=== PATIENT | female | born 1960 | race Caucasian/White ===

== ENCOUNTER 2017-01-17 01:53 | Inpatient (IN) | payer OTHER ==
[~2017-01-17] VITALS: Ht 160 cm; Wt 51.0 kg
[~2017-01-17 01:53] MED LIST: ADVIL200 M2 PO; ALPRAZOLAM1 M2 PO; CARAFATE1 G1 PO; CELEBREX200 MG PO; HYDROCODONE/ACE1 TA1 PO; LEVOTHYROXINE0.05 M1 PO; LEVOTHYROXINE50 MCG PO; METHOTREXATE2.5 M2 PO; MOBIC15 M1 PO; MULTI-DAY VITA1 EACH PO; PERCOCET 325 MG1 TA2 PO; PERCOCET 325 MG1 TAB PO; PERCOCET 5-3251 EACH PO; PREDNISONE20 MG PO; PROTONIX40 M3 PO; SKELAXIN800 MG PO; SOMA250 M1 PO; TRAMADOL50 MG PO; TRIAMCINOL0.1 %/453 TOP
--- NOTE | 2017-01-17 02:00 | ED AMS/SEIZURE/WEAK/DIZZY ---
See Addendum History of Present Illness General Chief Complaint: ETOH/Drug Related Complaint Stated Complaint: PER DAUGHTER "DRANK & TOOK TOO MANY OF HER PILLS" Source: patient, family Exam Limitations: no limitations Vital Signs & Intake/Output Vital Signs & Intake/Output Vital Signs Date Time Temp Pulse Resp B/P Pulse O2 O2 Flow FiO2 Ox Delivery Rate 01/17 0214 97.8 94 18 117/63 96 Allergies Coded Allergies: venom-honey bee (bee venom (honey bee)) (Severe, ANAPHYLAXIS 03/27/16) Reconcile Medications Alprazolam 1 MG TABLET 1 TAB PO TIDPRN PRN ANXIETY (Reported) Carisoprodol (SOMA) 250 MG TABLET 1 TAB PO BID PRN muscle spasms Ibuprofen (Advil) 200 MG TABLET 4-5 TAB PO PRN PAIN (Reported) Levothyroxine Sodium 50 MCG TABLET 1 TAB PO DAILY THYROID (Reported) Meloxicam (Mobic) 15 MG TABLET 1 TAB PO DAILY INFLAMMATION Metaxalone 800 MG TAB 1 TAB PO BID PRN MUSLE RELAXATION METHOTREXATE SODIUM (Methotrexate) 2.5 MG TABLET 1 TAB PO QWEEK CA (Reported) Multivitamin (Multi-Day Vitamins) 1 EACH TABLET 1 TAB PO DAILY SUPPLEMENT ( Reported) Oxycodone HCl/Acetaminophen (Percocet 5-325 MG Tablet) 1 EACH TABLET 1 TAB PO TID PRN PAIN Oxycodone HCl/Acetaminophen (Percocet 5-325 MG Tablet) 1 EACH TABLET 1 TAB PO BID PRN PAIN OXYCODONE HCL/ACETAMINOPHEN (Percocet 5-325 MG Tablet) 325 MG/5 MG TAB 1-2 TAB PO Q4-6 PRN PRN PAIN Pantoprazole Sodium (Protonix) 40 MG TABLET.DR 1 TAB PO DAILY GERD Triage Nurses Notes Reviewed? yes Onset: Abrupt Duration: hour(s): Timing: recent history Injury Environment: home Severity: moderate Modifying Factors: Improves With: rest. Associated Symptoms: "I've been under a lot of stress." HPI: 56-year-old woman presents after having taken several pills. The patient states that, "I've been under a lot of stress. I have anxiety. I couldn't sleep. And so I took some extra Percocet, some Xanax, and I drank tonight." Per the nurse, she reported being suicidal. Her family also states that she is suicidal. Upon my questioning, she denies suicidality. She denies homicidality or hallucinations. She is otherwise well. Past History Travel History Traveled to [place] past 21 day No Medical History Any Pertinent Medical History? see below for history Neurological: NONE Cardiovascular: NONE Respiratory: NONE Gastrointestinal: NONE Hepatic: NONE Renal: NONE Musculoskeletal: osteoarthritis, spinal stenosis (CERVICAL), RA Psychiatric: NONE Endocrine: hypothyroidism Surgical History Surgical History: spinal fusion Psychosocial History Who do you live with Daughter Services at Home None What is your primary language Egyptian Family History Hx Contributory? No Review of Systems Review of Systems Constitutional: Reports: no symptoms. EENTM: Reports: no symptoms. Respiratory: Reports: no symptoms. Cardiovascular: Reports: no symptoms. GI: Reports: no symptoms. Genitourinary: Reports: no symptoms. Musculoskeletal: Reports: no symptoms. Skin: Reports: no symptoms. Neurological/Psychological: Reports: no symptoms. Hematologic/Endocrine: Reports: no symptoms. Immunologic/Allergic: Reports: no symptoms. All Other Systems: Reviewed and Negative Physical Exam Physical Exam General Appearance: well developed/nourished, anxious, mild distress Head: atraumatic, normal appearance Eyes: Bilateral: normal appearance. Ears, Nose, Throat: normal pharynx, normal ENT inspection Neck: normal inspection, supple, full range of motion Respiratory: normal breath sounds, chest non-tender, no respiratory distress, quiet respiration, lungs clear Gastrointestinal: normal bowel sounds, soft, non-tender, no organomegaly Back: normal inspection, normal range of motion Extremities: normal range of motion Neurologic/Psych: no motor/sensory deficits, awake, alert, oriented x 3, depressed affect Reflexes: 1+: bicep (R), bicep (L). Skin: intact, normal color, warm/dry Core Measures ACS in differential dx? No CVA/TIA Diagnosis: No Severe Sepsis Present: No Septic Shock Present: No Progress Differential Diagnosis: alcohol intoxication, dehydration, drug intoxication Plan of Care: Orders Procedure Date/time Status Continuous Observation Monitor 01/17 159 Active URINE DRUG SCREEN FOR ER ONLY 01/17 159 Active ACETOMINOPHEN 01/17 159 Complete TROPONIN LEVEL 01/17 159 Complete SALICYLATE 01/17 159 Complete ETHANOL 01/17 159 Complete COMPREHENSIVE METABOLIC PANEL 01/17 159 Complete CBC WITHOUT DIFFERENTIAL 01/17 159 Complete EKG 01/17 159 Active ED CRISIS PSYCH CONSULT 01/17 159 Active Laboratory Tests 01/17/17 0242: Anion Gap 9, Estimated GFR > 60, BUN/Creatinine Ratio 15.7, Glucose 80, Calcium 8.8, Total Bilirubin 0.4, AST 38 H, ALT 29, Alkaline Phosphatase 88, Troponin I < 0.01, Total Protein 6.5, Albumin 3.8, Globulin 2.7, Albumin/Globulin Ratio 1.4 , CBC w Diff NO MAN DIFF REQ, RBC 3.91 L, MCV 95.5, MCH 31.4 H, RDW 15.0 H, MPV 8.7, Gran % 62.4, Lymphocytes % 25.2, Monocytes % 9.1, Eosinophils % 3.0, Basophils % 0.3, Absolute Granulocytes 3.6, Absolute Lymphocytes 1.4, Absolute Monocytes 0.5, Absolute Eosinophils 0.2, Absolute Basophils 0, PUBS MCHC 32.9 L , Salicylates < 1.0, Acetaminophen < 10.0 L, Serum Alcohol < 10.0 Initial ED EKG: normal axis, normal intervals, normal p-waves, normal QRS complex, normal sinus rhythm Hand-Off Endorsed To: AKBAR PAULSON,YIN Lopez Endorsed Time: 0700 Pending: consult, labs Departure Departure Disposition: STILL A PATIENT Condition: Stable Clinical Impression Primary Impression: Depression Referrals: NOELLE MCDONOUGH MD (PCP/Family) Departure Forms: Customer Survey General Discharge Information Comments 01/17/17, 3:17am.... when patient was getting changed into gown, pt found to have several pills hidden in her sock... These included, using a pill identifier, to be xanax 2mg tablets, soma 350mg, and seroquel 200mg tablets. pt to be held for crises eval in AM.
[2017-01-17 03:16] LABS: ABSOLUTE BASOPHIL COUNT 0 /CUMM (0.0-0.2); ABSOLUTE EOSINOPHIL COUNT 0.2 /CUMM (0.0-0.7); ABSOLUTE GRANULOCYTE CT 3.6 /CUMM (1.4-6.5); ABSOLUTE LYMPH COUNT 1.4 /CUMM (1.2-3.4); ABSOLUTE MONOCYTE COUNT 0.5 /CUMM (0.10-0.60); BASOPHIL % 0.3 % (0.0-2.0); GRANULOCYTE % 62.4 % (42.2-75.2); HEMATOCRIT 37.3 % (37-47); MEAN CORPUSCULAR HGB 31.4 PG (27.0-31.0); MEAN CORPUSCULAR HGB CONC 32.9 G/DL (33.0-37.0); MEAN CORPUSCULAR VOLUME 95.5 FL (81.0-99.0); MEAN PLATELET VOLUME 8.7 FL (7.4-10.4); PLATELET COUNT 223 /CUMM (130-400); RED BLOOD CELL CT 3.91 /CUMM (4.20-5.40); WHITE BLOOD CELL COUNT 5.7 /CUMM (4.8-10.8)
--- NOTE | 2017-01-17 14:09 | ED PSY CRISIS COLLATERAL NOTE ---
Collateral Note Collateral Note Family/Inform/Zeina Contacts: Crisis spoke to pt's 24yo daughter Kady Jackman who brought pt to ED last night. Kady expresses great concern for he Mom and the severity of her depression. She explained that he Mom took too much medication and initially stated it was a suicide attempt, but then retracted and stated that it was to help her sleep as she had not been able to sleep due to feeling stressed and overwhelmed. Kady is unsure if this was a suicide attempt, but says she is very worried if her mother is not admitted for inpt psych that she will kill herself. She reports that pt has very depressed and isolative and that this is not her 1st overdose. She reports pt has overdoes before, but is not sure if she has prior suicide attempts. She reports that pt has had 1 prior inpt psych admit at [place] 7 years ago for Depression. Kady is not aware of any current out pt tx. She thinks she that pt may have had previous out pt tx for anxiety. Kady would like to be notified of the outcome to the crisis eval.
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
[2017-01-17 20:09] VITALS: BP 127/87
[2017-01-17 23:40] VITALS: BP 119/81
[2017-01-18] VITALS (15 sets, daily range): BP systolic 102–146; BP diastolic 68–99
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
--- NOTE | 2017-01-18 15:16 | History & Physical ---
General Information and HPI History of Present Illness: This middle-aged female was brought to the hospital by the family for a checkup when she was not acting right and she admitted that she had taken too much off of medication. She claimed that she was not trying to kill herself but just trying to relieve her pain. She claims that her primary physician used to give her some pain medication but due to state regulation changes does not give her any more pain medication and she is only taking soma as well as Xanax and took a few pills of each. She claims that there were too many things going on in her life and he was too much stress building up. She goes to the outpatient psychiatry and the is on Seroquel and Xanax from psychiatry. She claims she has rheumatoid arthritis as well as hypothyroidism last couple of years and he takes levothyroxine 50 once a day and methotrexate 5 tablets once a week of 2.5 mg each. Should she admits to smoking about half a pack of cigarettes a day for last 40 years and claims she only rarely drinks alcohol about once a week and then only 1 or 2 drinks. 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 Allergies/Medications Allergies: Coded Allergies: venom-honey bee (bee venom (honey bee)) (Severe, ANAPHYLAXIS 03/27/16) Home Med list Alprazolam 1 MG TABLET 1 TAB PO TIDPRN PRN ANXIETY (Reported) Carisoprodol (SOMA) 250 MG TABLET 1 TAB PO BID PRN muscle spasms Ibuprofen (Advil) 200 MG TABLET 4-5 TAB PO PRN PAIN (Reported) Levothyroxine Sodium 50 MCG TABLET 1 TAB PO DAILY THYROID (Reported) Meloxicam (Mobic) 15 MG TABLET 1 TAB PO DAILY INFLAMMATION Metaxalone 800 MG TAB 1 TAB PO BID PRN MUSLE RELAXATION METHOTREXATE SODIUM (Methotrexate) 2.5 MG TABLET 1 TAB PO QWEEK CA (Reported) Multivitamin (Multi-Day Vitamins) 1 EACH TABLET 1 TAB PO DAILY SUPPLEMENT ( Reported) Oxycodone HCl/Acetaminophen (Percocet 5-325 MG Tablet) 1 EACH TABLET 1 TAB PO TID PRN PAIN Oxycodone HCl/Acetaminophen (Percocet 5-325 MG Tablet) 1 EACH TABLET 1 TAB PO BID PRN PAIN OXYCODONE HCL/ACETAMINOPHEN (Percocet 5-325 MG Tablet) 325 MG/5 MG TAB 1-2 TAB PO Q4-6 PRN PRN PAIN Pantoprazole Sodium (Protonix) 40 MG TABLET. 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 EENTM: Denies: no symptoms. Cardiovascular: Denies: no symptoms. Respiratory: Denies: no symptoms. GI: Denies: no symptoms. Genitourinary: Denies: no symptoms. Musculoskeletal: Reports: see HPI, back pain, joint pain, muscle pain. Skin: Denies: no symptoms. Neurological/Psychological: Reports: anxiety, depressed, emotional problems. Hematologic/Endocrine: Denies: no symptoms. Immunologic/Allergic: Denies: no symptoms. All Other Systems: Reviewed and Negative Exam & Diagnostic Data Last 24 Hrs of Vital Signs/I&O Vital Signs Date Time Temp Pulse Resp B/P Pulse O2 O2 Flow FiO2 Ox Delivery Rate 01/18 1417 92 130/77 01/18 1416 92 130/77 01/18 1236 94 138/81 01/18 1231 94 138/81 01/18 1231 94 138/81 01/18 1015 98.6 108 18 131/95 01/18 0719 96.6 90 146/93 01/18 0717 96.6 90 146/93 01/18 0529 74 107/68 01/18 0236 83 102/71 01/17 2340 120 119/81 01/17 2009 97.0 86 127/87 01/17 2009 97.0 86 127/87 01/17 1916 98.2 80 16 98/52 01/17 1540 98.4 76 16 112/70 Intake & Output 01/18 1600 01/18 0800 01/18 0000 Intake Total Output Total Balance Patient 112 lb Weight Physical Exam General Appearance Alert, Oriented X3, Cooperative, No Acute Distress Skin No Rashes, No Breakdown, No Significant Lesion HEENT Atraumatic, PERRLA, EOMI, Mucous Membr. moist/pink Neck Supple, No JVD, No thryomegaly, +2 Carotid Pulse wo Bruit, scar of previous surgery in the right anterior side of neck consistent with a history of C-spine surgery. Lymphatic Cervical nl Cardiovascular Regular Rate, Normal S1, Normal S2, No Murmurs, Gallops, Rubs Lungs Clear to Auscultation, Normal Air Movement Abdomen Normal Bowel Sounds, Soft, No Tenderness, No Hepatospenomegaly, No Masses Neurological Exam Findings: Normal Gait, Normal Speech, Strength at 5/5 X4 Ext, Normal Tone, Cranial Nerves 3-12 NL, Reflexes 2+ Cranial Nerves II through XII: Grossly within normal limits and intact Extremities No Clubbing, No Cyanosis, No Edema, No Tenderness/Swelling (and) Assessment/Plan Assessment: This middle-aged female is admitted for increased depression and drug overdose. She claims that she was not trying to kill herself just trying to relieve her pain and therefore took extra Xanax and Soma. From medical standpoint she has hypothyroidism and rheumatoid arthritis by history although there are no significant changes of rheumatoid arthritis on examination of her joints. For now we can continue her methotrexate 5 tablets once a week to be given together 2.5 mg each and we can continue her levothyroxin 50 g per day as before. Her TSH is slightly elevated but her free T4 and T3 are normal and therefore we can just repeat her TSH in about a week without changing the dose at this time. She is already on pain medication and antidepressants for psychiatry and does not need any other treatment or workup from medical standpoint. As Ranked By This Provider Problem List: 1. Chronic neck pain 2. Depression Miscellaneous Miscellaneous Documentation Attending Case Discussed With: CARA ARRIAGA MD Primary Care Physician: NOELLE MCDONOUGH MD Patient sees these Specialists none Level of Patient Care: TRACI Murray Attending Review Statement Attending Statement Attending MD Statement: examined this patient, reviewed EMR data (avail), discussed with nursing Attending Assessment/Plan: This middle-aged female is admitted for increased depression and drug overdose. She has hypothyroidism and rheumatoid arthritis by history and can be continued on the same dose of levothyroxine as well as methotrexate. We should recheck her TSH in one week otherwise there is no need for any other medical workup or treatment at this time.
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
[2017-01-19] VITALS (8 sets, daily range): BP systolic 132–137; BP diastolic 75–95
--- NOTE | 2017-01-19 12:56 | CP SOUTH PROGRESS NOTE PSYCH ---
Psych (Inpt) Progress Note Progress Note Include the following elements, when applicable: Involvement in the active treatment of the patient with behavioral observations of the patient and the patient's response to the treatment. Review of the ongoing treatment process in the context of the treatment plan. Indication of how multi-disciplinary staff members are carrying out the treatment plan. Plans for future interventions and recommendations for revision of the treatment plan. Liaison with other physicians/providers. Progress Note: Pt notes that doing well overall. Looking forward to visit from her daughters today. Denies SI or HI. Denies manic or psychotic sx. Current Medications Sig/Catarino Start time Last Medication Dose Route Stop Time Status Admin Al Hydroxide/Mg 30 ML Q4-6 PRN PRN 01/17 1530 AC Hydroxide PO Alprazolam 1 MG 0800,0 01/18 2200 AC 01/19 PO 01/25 2159 0906 Carisoprodol 350 MG TID 01/17 1600 AC 01/19 PO 0906 Folic Acid 1 MG DAILY 01/17 1518 DC 01/19 PO 01/19 1001 1051 Levothyroxine Sodium 0.05 MG DAILY AC 01/18 0700 AC 01/19 PO 0620 Lorazepam 0.5 MG ONCE 01/22 0000 DC PO 01/22 0001 Lorazepam 0.5 MG Q6H 01/21 0000 DC PO 01/21 1801 Lorazepam 0.5 MG ONCE ONE 01/20 1800 DC PO 01/20 1801 Lorazepam 1 MG Q6H 01/20 0000 DC PO 01/20 1201 Lorazepam 1.5 MG Q12H 01/19 0600 DC PO 01/19 1801 Lorazepam 1 MG Q12H 01/19 0000 CAN PO 01/19 1201 Lorazepam 1.5 MG Q6 01/18 0600 DC 01/18 PO 01/18 1801 1234 Lorazepam 2 MG Q2P PRN 01/17 1530 AC 01/18 PO 2320 Lorazepam 1 MG Q2P PRN 01/17 1530 AC 01/18 PO 1004 Multivitamins 1 TAB DAILY 01/17 1518 AC 01/19 PO 0907 Nicotine 2 MG Q2 HRS NEEDED PRN 01/18 1500 AC PO Oxycodone/ 1 TAB Q12P PRN 01/17 1530 DC Acetaminophen PO Quetiapine Fumarate 50 MG 0800,1300 01/19 0800 AC 01/19 PO 0907 Quetiapine Fumarate 200 MG AT BEDTIME 01/17 2200 AC 01/18 PO 2127 Quetiapine Fumarate 25 MG Q8P PRN 01/17 1530 DC PO Sucralfate 1,000 MG 1/2H B/BREAKF/DINNER 01/17 1630 AC 01/19 PO 0620 Thiamine HCl 100 MG DAILY 01/17 1518 DC 01/19 PO 01/19 1001 1051 Laboratory Tests 01/19 01/19 01/18 01/18 0619 0619 0600 0600 Chemistry Hemoglobin A1c Pending Cancelled Triglycerides (<150 mg/dL) 84 Cancelled Cholesterol (<200 MG/DL) 229 H Cancelled LDL Cholesterol, Calc (65 - 129 mg/dL) 137 H Cancelled HDL Cholesterol (40 - 60 mg/dL) 76 H Cancelled Cholesterol/HDL Ratio (0.00 - 4.23 %) 3 Cancelled 01/17 01/17 0758 0242 Chemistry Sodium (137 - 145 mmol/L) 140 Potassium (3.5 - 5.1 mmol/L) 4.0 Chloride (98 - 107 mmol/L) 103 Carbon Dioxide (22 - 30 mmol/L) 28 Anion Gap (5 - 16) 9 BUN (7 - 17 mg/dL) 11 Creatinine (0.5 - 1.0 mg/dL) 0.7 Estimated GFR (>60 ml/min) > 60 BUN/Creatinine Ratio (7 - 25 %) 15.7 Glucose (65 - 99 mg/dL) 80 Calcium (8.4 - 10.2 mg/dL) 8.8 Total Bilirubin (0.2 - 1.3 mg/dL) 0.4 AST (14 - 36 U/L) 38 H ALT (9 - 52 U/L) 29 Alkaline Phosphatase (<127 U/L) 88 Troponin I (< 0.11 ng/ml) < 0.01 Total Protein (6.3 - 8.2 g/dL) 6.5 Albumin (3.5 - 5.0 g/dL) 3.8 Globulin (1.9 - 4.2 gm/dL) 2.7 Albumin/Globulin Ratio (1.1 - 2.2 %) 1.4 Free T4 (0.64 - 1.79 ng/dL) 1.41 Total T3 (0.97 - 1.69 ng/mL) 1.31 TSH &T3 &Free T4 Intrp (0.270 - 4.20 uIU/mL) 6.500 H Hematology CBC w Diff NO MAN DIFF REQ WBC (4.8 - 10.8 /CUMM) 5.7 RBC (4.20 - 5.40 /CUMM) 3.91 L Hgb (12.0 - 16.0 G/DL) 12.3 Hct (37 - 47 %) 37.3 MCV (81.0 - 99.0 FL) 95.5 MCH (27.0 - 31.0 PG) 31.4 H RDW (11.5 - 14.5 %) 15.0 H Plt Count (130 - 400 /CUMM) 223 MPV (7.4 - 10.4 FL) 8.7 Gran % (42.2 - 75.2 %) 62.4 Lymphocytes % (20.5 - 51.1 %) 25.2 Monocytes % (1.7 - 9.3 %) 9.1 Eosinophils % (0 - 5 %) 3.0 Basophils % (0.0 - 2.0 %) 0.3 Absolute Granulocytes (1.4 - 6.5 /CUMM) 3.6 Absolute Lymphocytes (1.2 - 3.4 /CUMM) 1.4 Absolute Monocytes (0.10 - 0.60 /CUMM) 0.5 Absolute Eosinophils (0.0 - 0.7 /CUMM) 0.2 Absolute Basophils (0.0 - 0.2 /CUMM) 0 PUBS MCHC (33.0 - 37.0 G/DL) 32.9 L Toxicology Salicylates (0 - 20.0 mg/dL) < 1.0 Urine Opiates Screen (>2000 NG/ML) 880.00 Methadone Screen (>300 NG/ML) 90 Acetaminophen (10.0 - 30.0 ug/mL) < 10.0 L Barbiturate Screen (>200 NG/ML) < 60 Ur Phencyclidine Scrn (>25 NG/ML) < 6.00 Amphetamines Screen (>1000 NG/ML) < 100 U Benzodiazepines Scrn (>200 NG/ML) > 800 H Urine Cocaine Screen (>300 NG/ML) < 50 Urine Cannabis Screen (>50 NG/ML) 40.80 Serum Alcohol (<10 MG/DL) < 10.0 Vital Signs Date Time Temp Pulse Resp B/P Pulse O2 O2 Flow FiO2 Ox Delivery Rate 01/19 1224 96 135/75 01/19 1219 96 135/75 01/19 1028 97.3 88 136/84 01/19 0810 97.3 88 136/84 01/18 2319 117 18 137/80 01/18 2222 92 140/99 01/18 1954 92 142/95 01/18 1938 98.4 92 142/95 01/18 1614 96 141/96 01/18 1552 96 141/96 01/18 1417 92 130/77 01/18 1416 92 130 MSE Appears much older than stated age. Cooperative behavior, good, appropriate eye contact. Nl speech rate and prosody. No psychomotor retardation or agitation. Mood fine Affect euthymic, iconstricted, appropriate, non-liable. Linear and goal directed thought process. Denies SI or HI. Does not appear to be responding to internal stimuli. Denies AVHs, paranoia, or delusions. I/J: limited A/P: Pt with unspecified mood disorder and S-HUD, BDZ, now with improved mood. - Continue current medication regimen. - Encourage intergration into the milieu
[2017-01-20] VITALS (9 sets, daily range): BP systolic 117–142; BP diastolic 74–85
--- NOTE | 2017-01-20 12:36 | CP SOUTH PROGRESS NOTE PSYCH ---
Psych (Inpt) Progress Note Progress Note Include the following elements, when applicable: Involvement in the active treatment of the patient with behavioral observations of the patient and the patient's response to the treatment. Review of the ongoing treatment process in the context of the treatment plan. Indication of how multi-disciplinary staff members are carrying out the treatment plan. Plans for future interventions and recommendations for revision of the treatment plan. Liaison with other physicians/providers. Progress Note: Pt very upset as younger daughter visited and gave her "an ultimatum" which consist of going to inpatient rehab for a month. In speaking with the pt, it seems that the younger daughters motivation for this may be that patient's house , which the younger daughter currently lives in, is about to go into foreclosure and daughter feels that if pt is inpatient that will not occur. Patient does not want to do the rehab, "it won't change anything." Pt notes that backpain markedly worse today and requested ativan. This reqest was denied. Amenable to lidocaine patch at night as feels back pain worse then. Denies SI or HI. Current Medications Sig/Catarino Start time Last Medication Dose Route Stop Time Status Admin Al Hydroxide/Mg 30 ML Q4-6 PRN PRN 01/17 1530 AC Hydroxide PO Alprazolam 1 MG 0800,2200 01/18 2200 AC 01/20 PO 01/25 2159 0818 Carisoprodol 350 MG TID 01/17 1600 AC 01/20 PO 0818 Levothyroxine Sodium 0.05 MG DAILY AC 01/18 0700 AC 01/20 PO 0816 Lidocaine 1 PAT AT BEDTIME 01/20 2200 AC EXT Lorazepam 0.5 MG ONCE 01/22 0000 DC PO 01/22 0001 Lorazepam 0.5 MG Q6H 01/21 0000 DC PO 01/21 1801 Lorazepam 0.5 MG ONCE ONE 01/20 1800 DC PO 01/20 1801 Lorazepam 1 MG Q6H 01/20 0000 DC PO 01/20 1201 Lorazepam 2 MG Q2P PRN 01/17 1530 AC 01/18 PO 2320 Lorazepam 1 MG Q2P PRN 01/17 1530 AC 01/18 PO 1004 Multivitamins 1 TAB DAILY 01/17 1518 AC 01/20 PO 0816 Nicotine 2 MG Q2 HRS NEEDED PRN 02/24 1500 AC PO Quetiapine Fumarate 50 MG 0800,1300 01/19 0800 AC 01/20 PO 0816 Quetiapine Fumarate 200 MG AT BEDTIME 01/17 2200 AC 01/19 PO 2156 Sucralfate 1,000 MG 1/2H B/BREAKF/DINNER 01/17 1630 AC 01/20 PO 0816 Laboratory Tests 01/19 01/19 01/18 01/18 0619 0619 0600 0600 Chemistry Hemoglobin A1c (<5.7) 5.1 Cancelled Triglycerides (<150 mg/dL) 84 Cancelled Cholesterol (<200 MG/DL) 229 H Cancelled LDL Cholesterol, Calc (65 - 129 mg/dL) 137 H Cancelled HDL Cholesterol (40 - 60 mg/dL) 76 H Cancelled Cholesterol/HDL Ratio (0.00 - 4.23 %) 3 Cancelled Vital Signs Date Time Temp Pulse Resp B/P Pulse O2 O2 Flow FiO2 Ox Delivery Rate 01/20 1222 91 122/81 01/20 1215 91 12281 01/20 0752 97.5 96 135/85 01/20 0744 97.5 96 135/85 01/20 0024 86 126/74 01/19 195 98.6 91 137/95 01/19 1943 98.6 91 137/95 01/19 1631 96 132/90 01/19 1619 96 132/90 MSE Appears as stated age. Cooperative behavior though defensive and upset when told would not give her ativan, good, appropriate eye contact. Nl speech rate and prosody. No psychomotor retardation or agitation. Mood terrible.... Affect extremely irritable, depressed, constricted, appropriate, non-liable. Linear and goal directed thought process. Denies SI or HI. Does not appear to be responding to internal stimuli. Denies AVHs, paranoia, or delusions. I/J: limited A/P: Pt with MDD and OUD as well as S-HUD with marked irritability around discharge planning and continued chronic pain. - Added lidocaine patch for QHS as pain worse at this time - Pt taking soma as well - Pt and two daughter need to have a family meeting, preferably facilitated by SW, to aid in discharge planning and realistic expectations.
[2017-01-21 08:00] VITALS: BP 96/67
[2017-01-21] MEDS ORDERED: SOMA350 M1 PO ×2 (12:08→12:39)
[2017-01-21] MEDS ORDERED: NICORELIEF2 MG PO (12:12)
[2017-01-21 12:16] VITALS: BP 111/71
--- NOTE | 2017-01-21 12:22 | CP SOUTH PROGRESS NOTE PSYCH ---
Psych (Inpt) Progress Note Progress Note Progress Note: I discussed this patient's progress to date, current mental status, treatment process in the context of the treatment plan, and discharge planning with staff/ team in the daily morning inpatient team meeting. I also met with the patient myself in individual session. A total of 30 minutes was spent with the patient with more than 50% spent in counseling and/or coordination of care. SUBJECTIVE: "I feel better. I feel clear headed for the first time in a long time." OBJECTIVE: Current Medications Sig/Catarino Start time Last Medication Dose Route Stop Time Status Admin Al Hydroxide/Mg 30 ML Q4-6 PRN PRN 01/17 1530 AC Hydroxide PO Alprazolam 1 MG 0800,2200 01/18 2200 AC 01/21 PO 01/25 2159 0818 Carisoprodol 350 MG TID 01/17 1600 AC 01/21 PO 0818 Diphenhydramine HCl 25 MG ONCE ONE 01/20 2345 DC 01/20 PO 01/20 2346 2357 Ibuprofen 400 MG Q4P PRN 01/21 0845 AC 01/21 PO 0948 Ibuprofen 400 MG ONCE ONE 01/20 2345 DC 01/20 PO 01/20 2346 2357 Levothyroxine Sodium 0.05 MG DAILY AC 01/18 0700 AC 01/21 PO 0703 Lidocaine 1 PAT AT BEDTIME 01/20 2200 AC 01/20 EXT 2202 Lorazepam 0.5 MG ONCE 01/22 0000 DC PO 01/22 0001 Lorazepam 0.5 MG Q6H 01/21 0000 DC PO 01/21 1801 Lorazepam 0.5 MG ONCE ONE 01/20 1800 DC PO 01/20 1801 Lorazepam 2 MG Q2P PRN 01/17 1530 AC 01/18 PO 2320 Lorazepam 1 MG Q2P PRN 01/17 1530 AC 01/18 PO 1004 Multivitamins 1 TAB DAILY 01/17 1518 AC 01/21 PO 0819 Nicotine 2 MG Q2 HRS NEEDED PRN 01/18 1500 AC PO Quetiapine Fumarate 50 MG 0800,1300 01/19 0800 AC 01/21 PO 0819 Quetiapine Fumarate 200 MG AT BEDTIME 01/17 2200 AC 01/20 PO 2202 Sucralfate 1,000 MG 1/2H B/BREAKF/DINNER 01/17 1630 AC 01/21 PO 0703 Vital Signs Date Time Temp Pulse Resp B/P Pulse O2 O2 Flow FiO2 Ox Delivery Rate 01/21 1216 85 111/71 01/21 0800 97.5 98 9601/21 0800 97.5 98 9601/20 1955 97.5 94 142/78 01/20 1939 97.5 94 142/78 01/20 1630 97 117/83 01/20 1622 97 117 ASSESSMENT: Patient reports that she is feeling well. Tolerating medications well, without complaint. States that over the weekend, "I was laughing. It was the first time I was laughing in a long time." She states she feels safe, and ready for discharge. Patient denies regular alcohol use. States she has an alcoholic drink infrequently, does not drink to excess. Family meeting this afternoon with her daughter. Depression:0/10; Anxiety: 6/10 (with 10 the worst.) Denies suicidal ideation, homicidal ideation, auditory hallucinations, visual hallucinations, paranoid ideation. Patient states and also believes that she will not kill herself. Speech is well articulated, goal-directed, average in rate, volume and tone. Calm, cooperative and pleasant. Alert and oriented 3. Logical. The patient understands the risks/benefits/side effects of the medication and is agreeable to continue taking them. PLAN: Family meeting this afternoon. Anticipate discharge after the family meeting. Patient will follow up at [facility]. Continue with current management as patient is improving. Continue to provide support and encouragement.
--- NOTE | 2017-01-21 12:25 | DISCHARGE SUMMARY REPORT-PSYCH ---
Visit Information Visit Dates/Diagnosis' Admission Date: 01/17/17 Discharge Date: 01/21/17 Reason for Admission: The patient presented to the emergency department on the urging of her daughter Kady, after a reported overdose on "three, 2 mg tablets of Xanax." Rule out possible suicidal attempt/gesture. Psy Discharge Primary Diag: PTSD Psy Discharge Secondary Diag: Anxiety; rule out bipolar spectrum d/o; rule out personality disorder; benzodiazapine dependence. Hospital Course Significant Lab Findings: Lab ALT 29 U/L 01/17/17 0242 AST 38 U/L H 01/17/17 0242 Free T4 1.41 ng/dL 01/17/17 0242 TSH &T3 &Free T4 Intrp 6.500 uIU/mL H 01/17/17 0242 Total T3 1.31 ng/mL 01/17/17 0242 U Benzodiazepines Scrn > 800 NG/ML H 01/17/17 0758 Course Complications: None Consultations: Patient was seen for admission history and physical by Dr. Pabon. Please refer to his note for additional information. Allergies: Coded Allergies: venom-honey bee (bee venom (honey bee)) (Severe, ANAPHYLAXIS 03/27/16) Hospital Course/TX Response: Patient was monitored on the unit for safety, depression, mood stability, and suicidal ideation. She participated in multimodal treatments on the unit. She was medicated with an increased dose of Seroquel for anxiety, and clear thoughts. Xanax dose was decreased to 1mg, twice daily. Today, the day of discharge, she reports that she is feeling well. Tolerating medications well, without complaint. States that over the weekend, "I was laughing. It was the first time I was laughing in a long time." She states she feels safe, and ready for discharge. Patient denies regular alcohol use. States she has an alcoholic drink infrequently, does not drink to excess. A Family meeting was held this afternoon with her daughter, prior to discharge. Her daughter verbalized understanding of patient's discharge plan, was supportive, and endorsed that her mother was not a problem drinker. The daughter, Catrina, believes that her mother is safe at home, and not a danger to herself or anyone else. Depression:0/10; Anxiety: 6/10 (with 10 the worst.) Denies suicidal ideation, homicidal ideation, auditory hallucinations, visual hallucinations, paranoid ideation. Patient states and also believes that she will not kill herself. Speech is well articulated, goal-directed, average in rate, volume and tone. Calm, cooperative and pleasant. Alert and oriented 3. Logical. The patient understands the risks/benefits/side effects of the medication and is agreeable to continue taking them. Patient reports tolerating her medications well, without complaint. States she feels safe and ready for discharge. Discharge HBIPS - Tobacco Use Treatment Offered Post DC Medications Offered: Script Given-See Med List Post DC Tobacco Treatment Plan: [facility] Tx Pgm Program Appt Date: 01/30/17 Program Appt Time: 1600 - EtOH/Drug Use D/O Treatment Offered Post DC Medications Offered: NA-No EtOH/Drug Use D/O Post DC EtOH/SubAbuse TX Plan: NA-No EtOH/Drug Use D/O Metabolic Screening - Screen if on a Neuroleptic Medication - Metabolic screening should include: - Blood Pressure, BMI, Glucose or Hgb A1c, & a - Lipid profile from within the past 365 days. Metabolic Screening () Not Applicable, patient not on a neuroleptic. OR ([x]) Patient on a neuroleptic(s) . Enter below results for Glucose or Hemoglobin A1C, and lipid panel if obtained during the last 365 days. BMI: Blood Pressure: 111/71 Laboratory Results (If applicable): Lab Cholesterol 229 MG/DL H 01/19/17 0619 Cholesterol/HDL Ratio 3 % 01/19/17 0619 HDL Cholesterol 76 mg/dL H 01/19/17 0619 Hemoglobin A1c 5.1 01/19/17 0619 LDL Cholesterol, Calc 137 mg/dL H 01/19/17 0619 Triglycerides 84 mg/dL 01/19/17 0619 Discharge Instructions General Discharge Information Discharge Medications: Discharge Medications- (Dose, route, freq, indication): START taking these NEW Home Medications: Alprazolam (Xanax) 1 Dose: ORAL, TWICE DAILY for Qty: 28 Printed MG TABLET 1 Milligram ANXIETY Refills: 0 Last Taken:01/21/17 Time:8am Nicotine Dose: ORAL, EVERY 2 HOURS Qty: 30 (Nicorelief) 2 MG 2 Milligram NEEDED as needed for Refills: 0 GUM smoking cessation Quetiapine Fumarate Dose: ORAL, AT BEDTIME for Qty: 14 (Quetiapine 200 Milligram CLEAR THOUGHTS Refills: 0 Fumarate) 100 MG Last Taken:01/20/17 TABLET Time:10pm Quetiapine Fumarate Dose: ORAL, 0800,1300 for Qty: 28 (Seroquel) 50 MG 50 Milligram CLEAR THOUGHTS Refills: 0 TABLET Last Taken:01/21/17 Time:8am Carisoprodol (SOMA) Dose: ORAL, THREE TIMES DAILY Qty: 14 350 MG TABLET 350 Milligram for PAIN Refills: 0 Last Taken:01/21/17 Time:8am CONTINUE taking these Home Medications: METHOTREXATE SODIUM Dose: ORAL, QWEEK for CA (Methotrexate) 2.5 MG 1 Tablet TK 5 TS PO ONCE WEEKLY TABLET ON MONDAYS - SIG Obtained From Jaymie Pantoprazole Sodium Dose: ORAL, DAILY for GERD (Protonix) 40 MG 1 Tablet not given in hospital TABLET. Levothyroxine Sodium Dose: ORAL, DAILY for THYROID (Levothyroxine Sodium) 1 Tablet Last Taken:01/21/17 50 MCG TABLET Time:7am Ibuprofen (Advil) 200 MG Dose: ORAL, as needed for TABLET 4-5 Tablet PAIN PER PT Multivitamin (Multi-Day Dose: ORAL, DAILY for Vitamins) 1 EACH TABLET 1 Tablet SUPPLEMENT Last Taken:01/21/17 Time:8am STOP taking these DISCONTINUED Home Medications: Oxycodone HCl/Acetaminophen Dose: ORAL, TWICE DAILY as needed for (Percocet 5-325 MG Tablet) 1 1 Tablet PAIN EACH TABLET Reason Stopped: Per Doctor Decision Your Preferred Pharmacy [facility] [address] [place] [id number] Multiple Neuroleptics: (x) Not Applicable OR Document below three failed attempts at monotherapy, or a plan to taper to monotherapy, or augmentation of Clozapine. () Patient's Diet: Regular Patient's Activity: No restrictions DC Disposition: Patient is returning to her home. Recommendations: Follow up at [facility]. Take medications as directed. Follow-up with visiting nurse. Referred To: [facility] OUTPT [facility] Service Date: 01/23/17 [address] [id number] Notes: Intake for mental health [facility] 9:30am [address] [phone] Provider Referral Service Date: 01/21/17 Referred To: [[facility]] [Visiting Nurse] Notes: Referred to [facility] for 2x daily med administration 7 days a week. Copies To: Intensive Outpt Psychiatry; [facility]
[2017-01-21 12:32] VITALS: BP 111/71
[2017-01-21] MEDS ORDERED: QUETIAPINE FUM100 M1 PO (12:40)
[2017-01-21] MEDS ORDERED: SEROQUEL50 M1 PO (12:40)
--- NOTE | 2017-01-21 13:19 | SOCIAL WORKER PROG NOTE PSYCH ---
Social Work Progress Note Progress Note Called Maribel's daughter Kady this morning and left a message about setting up a family meeting for today. In team meeting, it was discussed that patient should discharge today, due to not needing inpatient level of care. Met with Maribel who reports that she is doing well today. No SI. I told her I was trying to get her daughter in today for a meeting. She stated that it was difficult to get a hold of Kady during the day because she works and then goes to sleep. She said she has been in contact with her daughter Catrina. I told her that I'd like to clarify some things in regards to her daughter Kady's report about her drinking. Maribel continues to deny that she has a current substance problem. She said that her daughter was angry with her and said it in the ER. Maribel reported that her and Catrina are working on their relationship and she is open to her coming in to meet. I told Maribel that she will most likely be discharged today and that I would like to set up her aftercare at [facility]. She seemed open to the idea. Her only concern was changing her meds, she likes the meds she is on. I told her that the mental health track will allow her to stay on the meds that she is on, but they would like to talk to her prescribers. She said she would have no issue with signing releases for her doctors. She also said that her daughter Catrina offered to help her with her meds. I told her that my preference would be to refer her to a visiting nurse. She agreed for me to do the referral. Signed release for [facility]. Velasquez Corral APRN and I spoke with Johnie Holman APRN in OPS to clarify if there was a substance related issue and if she would be appropriate for the mental health track. Johnie agreed that there has been no evidence of any substance/ drinking problem and he agreed that the mental health track would be appropriate. I also spoke with Maribel Fritz's daughter. Catrina said she was willing to sheepskin pickler her Mom today. I asked if she had any concerns about drinking? She said no. She said she may have 1 drink occasionally. She will come in at 2pm and sheepskin pickler her Mom and meet with us to review her information. Daughter Catrina sat with Maribel Toscano APRN and I to review her discharge information. Catrina didn't have any concern about Mom returning home. She once again confirmed that her Mom is not a drinker. Told her [facility] would be seeing her today to do an intake for [facility]. They will provide BID medical office technician.
[2017-01-21] MEDS ORDERED: XANAX1 M1 PO (14:26)
== END 2017-01-21 14:52 | DRG 756 ==
LOC: ERH 01:53 → ERHI 17:31 → CP SOUTH 17:31 → ENPENDDIS 17:31 → EDBEDREQ 17:42 → CP SOUTH 20:05
PROVIDERS: Nurse Practitioner Psychiatric/Mental Health; Pediatrics; ADMIT Psychiatry & Neurology Psychiatry
DX: F41.9 Anxiety disorder, unspecified (principal)
CPT/HCPCS: 36415; 80307; 93005; 93010; G0480; J3101; J3490

== ENCOUNTER 2017-03-12 15:20 | Emergency (ER) | payer OTHER ==
[~2017-03-12] VITALS: Ht 157.5 cm; Wt 49.9 kg
[~2017-03-12 15:20] MED LIST changes: +NICORELIEF2 MG PO; +QUETIAPINE FUM100 M1 PO; +SEROQUEL50 M1 PO; +SOMA350 M1 PO; +XANAX1 M1 PO
[2017-03-12] MEDS ORDERED: LYRICA100 M1 PO (17:03)
--- NOTE | 2017-03-12 17:17 | ED GENERAL ADULT ---
History of Present Illness General Chief Complaint: General Adult Stated Complaint: NECK AND R SHOULDER PAIN,NOW LEGS AND ANKLES X4DAY Source: patient Exam Limitations: no limitations Vital Signs & Intake/Output Vital Signs & Intake/Output Vital Signs Date Time Temp Pulse Resp B/P Pulse O2 O2 Flow FiO2 Ox Delivery Rate 03/12 1653 99 Room Air 03/12 1543 98.5 87 16 114/80 97 Room Air Allergies Coded Allergies: venom-honey bee (bee venom (honey bee)) (Severe, ANAPHYLAXIS 03/27/16) Reconcile Medications Alprazolam (Xanax) 1 MG TABLET 1 MG PO BID ANXIETY Carisoprodol (SOMA) 350 MG TABLET 350 MG PO TID PAIN Ibuprofen (Advil) 200 MG TABLET 4-5 TAB PO PRN PAIN (Reported) Levothyroxine Sodium 50 MCG TABLET 1 TAB PO DAILY THYROID (Reported) Meloxicam (Mobic) 15 MG TABLET 1 TAB PO DAILY PRN PAIN/INFLAMMATION Methotrexate 2.5 MG TABLET 5 TAB PO QMON RA (Reported) Multivitamin (Multi-Day Vitamins) 1 EACH TABLET 1 TAB PO DAILY SUPPLEMENT ( Reported) Oxycodone HCl/Acetaminophen (Percocet 5-325 MG Tablet) 5 MG-325 MG TABLET 1 TAB PO Q6H PRN PAIN Pantoprazole Sodium (Protonix) 40 MG TABLET.DR 1 TAB PO DAILY GERD Pregabalin (Lyrica) 100 MG CAPSULE 1 CAP PO BID NEVRE PAIN (Reported) Quetiapine Fumarate 100 MG TABLET 200 MG PO AT BEDTIME CLEAR THOUGHTS Quetiapine Fumarate (Seroquel) 50 MG TABLET 50 MG PO 0800,1300 CLEAR THOUGHTS Triage Note: PT STATES SHE HAD BACK PAIN ABOUT 1 WEEK AGO AND THEN UP INTO HER HEAD AND NOW IT'S DOWN TO HER FEET TODAY. PT STATES SHE IS USE TO HAVEING BACK AND NECK PAIN BUT THIS DOESN'T SEEM LIKE THE NORM FOR HER. Triage Nurses Notes Reviewed? yes HPI: Patient is a 56-year-old female presents complaining of neck pain radiating down bilateral arms and back pain radiating down her bilateral legs. Patient awoke with pain 4 days ago in her neck and her back and over the past 4 days the pain has been gradually spreading. Patient has a history of chronic neck and back pain and has had surgery on both, most recently in 2001. Patient reports that she had an MRI of her lumbar spine approximately 3 weeks ago and was seeing Dr. Beltran, but was discharged from the practice due to "he said there was nothing more that he could do". Pain feels different than her previous chronic pain. Patient has been taking Advil with no improvement. Patient reports that movement of her arms and her legs causes a pulling sensation and exacerbates her pain. Pain is currently severe. Patient denies fevers, chills, rashes, recent trauma, numbness, incontinence. (MADAI SORENSEN) Past History Travel History Traveled to [place] past 21 day No Medical History Any Pertinent Medical History? see below for history Neurological: NONE EENT: ALLERGIES- SEASONAL; BEES (seasonal allergies) Cardiovascular: NONE Respiratory: NONE Gastrointestinal: ACID REFLUX Hepatic: NONE Renal: NONE Musculoskeletal: osteoarthritis, spinal stenosis (CERVICAL), RheUmatoid Arthritis Psychiatric: NONE Endocrine: hypothyroidism Blood Disorders: NONE Cancer(s): NONE REPOSSESSOR/Reproductive: 2 C SECTIONS History of MRSA: No History of VRE: No History of CDIFF: No Influenza Vaccine: 10/10/16 Surgical History Surgical History: spinal fusion Psychosocial History Who do you live with Daughter Services at Home None What is your primary language Polish Tobacco Use: Current Daily Use Daily Tobacco Use Amount/Type: => 5 Cigarettes daily ETOH Use: occasional use Illicit Drug Use: denies illicit drug use Family History Hx Contributory? No (MADAI SORENSEN) Review of Systems Review of Systems Constitutional: Denies: chills, fever. EENTM: Reports: no symptoms. Respiratory: Denies: cough, short of breath. Cardiovascular: Denies: chest pain. GI: Denies: abdominal pain. Genitourinary: Reports: no symptoms. Musculoskeletal: Reports: see HPI. Skin: Reports: no symptoms. Denies: rash. Neurological/Psychological: Reports: headache. Denies: numbness, paresthesia. Hematologic/Endocrine: Denies: bruising, bleeding. Immunologic/Allergic: Denies: splenectomy. (MADAI SORENSEN) Physical Exam Physical Exam General Appearance: well developed/nourished, alert, awake Head: atraumatic, normal appearance Eyes: Bilateral: normal appearance, PERRL, EOMI. Ears, Nose, Throat: normal pharynx, hearing grossly normal Neck: normal inspection, supple, full range of motion, no midline tenderness. Mild paraspinal tenderness starting at C7-T1 Respiratory: normal breath sounds, chest non-tender, no respiratory distress, lungs clear Cardiovascular: regular rate/rhythm Peripheral Pulses: 2+ radial (R), 2+ radial (L), 2+ dorsalis pedis (R), 2+ dorsalis pedis (L) Gastrointestinal: normal bowel sounds, soft, non-tender Back: normal inspection, normal range of motion, bilateral lumbar paraspinal tenderness Extremities: normal inspection, normal capillary refill, normal range of motion, no edema Neurologic/Psych: no motor/sensory deficits, awake, alert, oriented x 3, normal gait, normal mood/affect Reflexes: 2+: knee (R), knee (L), ankle (R), ankle (L). Skin: intact, normal color, warm/dry Lymphatic: no anterior cervical masha Core Measures ACS in differential dx? No CVA/TIA Diagnosis: No Severe Sepsis Present: No Septic Shock Present: No (MADAI SORENSEN) Progress Differential Diagnoses I considered the following diagnoses in my evaluation of the patient: Nerve impingement, radiculopathy, chronic pain, Guillain-Rome syndrome, rheumatologic disease, transverse myelitis Plan of Care: No acute neurologic abnormalities on exam. Patient had MRI imaging of her lumbar spine within the past 1 month(performed at [facility], results not available at this time). Patient does not appear to require further imaging at this time. Appears stable for discharge with conservative treatment and outpatient follow-up. Initial ED EKG: none (MADAI SORENSEN) Departure Departure Time of Disposition: 1730 Disposition: HOME OR SELF CARE Condition: Stable Clinical Impression Primary Impression: Cervical radiculopathy Secondary Impressions: Lumbar radiculopathy Referrals: NOELLE MCDONOUGH MD (PCP/Family) Additional Instructions: Follow-up with your primary care provider within one week for further evaluation. Be careful when taking the pain medication that is being prescribed to you. It can cause drowsiness, especially with your other medications. Do not take if you are getting increasingly lethargic. Return to the emergency department if numbness, weakness, fevers, rash, or worsening of symptoms. Departure Forms: Customer Survey General Discharge Information Prescriptions: Current Visit Scripts Meloxicam (Mobic) 1 TAB PO DAILY PRN PAIN/INFLAMMATION #10 TAB Oxycodone HCl/Acetaminophen (Percocet 5-325 MG Tablet) 1 TAB PO Q6H PRN PAIN #10 TAB (MADAI SORENSEN) PA/COMMAND AND CONTROL SPECIALIST Co-Sign Statement Statement: ED Attending supervision documentation- [] I saw and evaluated the patient. I have also reviewed all the pertinent lab results and diagnostic results. I agree with the findings and the plan of care as documented in the PA's/COMMAND AND CONTROL SPECIALIST's documentation. x I have reviewed the ED Record and agree with the PA's/COMMAND AND CONTROL SPECIALIST's documentation. [] Additions or exceptions (if any) to the PAs/COMMAND AND CONTROL SPECIALIST's note and plan are summarized below: [] (IRENE PAULSON,FRANCISCO) Critical Care Note Critical Care Note Critical Care Time: non-applicable (MADAI SORENSEN)
[2017-03-12] MEDS ORDERED: PERCOCET 5-3251 EACH PO (17:31)
[2017-03-12] MEDS ORDERED: MOBIC15 M1 PO (17:31)
[2017-03-12 17:36] VITALS: BP 112/74
== END 2017-03-12 17:38 ==
LOC: ERH 15:20
DX: M54.12 Radiculopathy, cervical region (principal); M54.16 Radiculopathy, lumbar region

== ENCOUNTER 2017-04-19 14:56 | Emergency (ER) | payer OTHER ==
[~2017-04-19] VITALS: Ht 157.5 cm; Wt 52.2 kg
[~2017-04-19 14:56] MED LIST changes: +LYRICA100 M1 PO
[2017-04-19 15:01] VITALS: BP 121/83
--- NOTE | 2017-04-19 16:05 | ED NECK/BACK PAIN COMPLAINT ---
History of Present Illness General Chief Complaint: Upper Extremity Problem Stated Complaint: "PER PT NECK PAIN" Source: patient Exam Limitations: no limitations Vital Signs & Intake/Output Vital Signs & Intake/Output Vital Signs Date Time Temp Pulse Resp B/P B/P Pulse O2 O2 Flow FiO2 Mean Ox Delivery Rate 04/19 1501 98.6 102 18 121/83 96 Room Air Allergies Coded Allergies: venom-honey bee (bee venom (honey bee)) (Severe, ANAPHYLAXIS 03/27/16) Reconcile Medications Alprazolam (Xanax) 1 MG TABLET 1 MG PO BID ANXIETY Carisoprodol (SOMA) 350 MG TABLET 350 MG PO TID PAIN Cyclobenzaprine HCl 10 MG TABLET 1 TAB PO QPM PRN MUSCLE RELAXOR Ibuprofen (Advil) 200 MG TABLET 4-5 TAB PO PRN PAIN (Reported) Levothyroxine Sodium 50 MCG TABLET 1 TAB PO DAILY THYROID (Reported) Meloxicam (Mobic) 15 MG TABLET 1 TAB PO DAILY PRN PAIN/INFLAMMATION Meloxicam (Mobic) 15 MG TABLET 1 TAB PO DAILY PRN pain Methotrexate 2.5 MG TABLET 5 TAB PO QMON RA (Reported) Multivitamin (Multi-Day Vitamins) 1 EACH TABLET 1 TAB PO DAILY SUPPLEMENT ( Reported) Oxycodone HCl/Acetaminophen (Percocet 5-325 MG Tablet) 5 MG-325 MG TABLET 1 TAB PO Q6H PRN PAIN Oxycodone HCl/Acetaminophen (Percocet 5-325 MG Tablet) 5 MG-325 MG TABLET 1 TAB PO BID PRN PAIN Pantoprazole Sodium (Protonix) 40 MG TABLET.DR 1 TAB PO DAILY GERD Pregabalin (Lyrica) 100 MG CAPSULE 1 CAP PO BID NEVRE PAIN (Reported) Quetiapine Fumarate 100 MG TABLET 200 MG PO AT BEDTIME CLEAR THOUGHTS Quetiapine Fumarate (Seroquel) 50 MG TABLET 50 MG PO 0800,1300 CLEAR THOUGHTS Triage Note: 57 Y/O FEMALE C/O NECK PAIN SINCE LIFTING 5 POUND BAG OF DOGFOOD TODAY. STATES HX NECK PROBLEMS AND LIFTING BAG EXACERBATED PAIN. TOOK ADVIL WITH NO RELIEF. STATES PAIN IS ON BOTH SIDES OF NECK. Triage Nurses Notes Reviewed? yes Onset: Abrupt Duration: constant Timing: single episode today Quality/Severity: severe Location: paraspinous muscles Radiation: none Loss of Consciousness: no loss of consciousness HPI: Patient is a 57-year-old female with a past medical history of chronic neck pain and cervical fusion who presents emergency and that today while lifting a 5 pound dog back she had acute onset of right-sided muscular neck pain or patient has taken ibuprofen with no relief of symptoms. Patient denies any headache denies any upper extremity paresthesia weakness or pain. States that neck movements make worse. (IDALIA SPICER) Past History Travel History Traveled to [place] past 21 day No Medical History Any Pertinent Medical History? 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 No (IDALIA SPICER) Review of Systems Review of Systems Constitutional: Reports: no symptoms. Eyes: Reports: no symptoms. Ears, Nose, Throat, Mouth: Reports: no symptoms. Respiratory: Reports: no symptoms. Cardiovascular: Reports: no symptoms. Gastrointestinal/Abdominal: Reports: no symptoms. Musculoskeletal: Reports: see HPI, muscle pain, muscle stiffness, neck pain. Skin: Reports: no symptoms. Neurological/Psychological: Reports: no symptoms. All Other Systems: Reviewed and Negative (IDALIA SPICER) Physical Exam Physical Exam General Appearance: no apparent distress, alert, comfortable Head: atraumatic Eyes: Bilateral: normal appearance, PERRL, EOMI. Ears, Nose, Throat, Mouth: hearing grossly normal Neck: normal inspection, supple, limited range of motion, paraspinous muscle tender, stiff neck, tenderness, tender lateral, no midline tenderness Respiratory: normal breath sounds Peripheral Pulses: 2+ radial (R), 2+ radial (L) Back: normal inspection Extremities: non-tender, normal range of motion, DERMATOMES, MYOTOMES, DTR INTACT BILATERAL UPPER EXTREMITY Neurologic/Psych: no motor/sensory deficits, awake, alert, oriented x 3, normal gait Skin: intact, normal color, warm/dry (IDALIA SPCIER) Progress Differential Diagnosis: AAA, aortic dissection, C spine injury, carotid dissection, cauda equina syn, herniated disc, myofascial strain, pyelo/UTI, sciatica, spinal cord inj, thoracic outlet syn, T/L spine injury, ureterolithiasis Plan of Care: Patient currently is in no apparent distress, patient's upper extremities were neurovascularly intact patient had no central spinous tenderness. Patient will be treated for concerns of strain sprain of the cervical spine. Patient was strongly advised to follow-up with surgeon if no better on Saturday. Patient had normal steady gait on discharge (IDALIA SPICER) Departure Departure Disposition: HOME OR SELF CARE Condition: Stable Clinical Impression Primary Impression: Neck strain Referrals: SHARONDA PAULSON,NOELLE (PCP/Family) Additional Instructions: As discussed begin heating/ icing the area for improvement of your symptoms 20 minutes every 2 hours. Begin the prescription meloxicam for pain and inflammation. Begin the prescription cyclobenzaprine for muscle relaxation. Begin the prescription of Percocet for breakthrough pain relief. Prescriptions waiting at [facility]. Follow-up with your established neck surgeon on Saturday if no better. If symptoms worsen return to emergency room Departure Forms: Customer Survey General Discharge Information Prescriptions: Current Visit Scripts Meloxicam (Mobic) 1 TAB PO DAILY PRN pain #14 TAB Cyclobenzaprine HCl 1 TAB PO QPM PRN MUSCLE RELAXOR #10 TAB Oxycodone HCl/Acetaminophen (Percocet 5-325 MG Tablet) 1 TAB PO BID PRN PAIN #8 TAB (IDALIA SPICER) PA/DIRECTOR DRUG SAFETY Co-Sign Statement Statement: ED Attending supervision documentation- [] I saw and evaluated the patient. I have also reviewed all the pertinent lab results and diagnostic results. I agree with the findings and the plan of care as documented in the PA's/DIRECTOR DRUG SAFETY's documentation. [X] I have reviewed the ED Record and agree with the PA's/DIRECTOR DRUG SAFETY's documentation. [] Additions or exceptions (if any) to the PAs/DIRECTOR DRUG SAFETY's note and plan are summarized below: [] (YIN BHANDARI DO
[2017-04-19] MEDS ORDERED: CYCLOBENZAPRINE10 M1 PO (16:33)
[2017-04-19] MEDS ORDERED: PERCOCET 5-3251 EACH PO (16:33)
[2017-04-19] MEDS ORDERED: MOBIC15 M1 PO (16:33)
== END 2017-04-19 17:02 ==
LOC: ERH 14:56
DX: S16.1XXA Strain of muscle, fascia and tendon at neck level, initial encounter (principal); X58.XXXA Exposure to other specified factors, initial encounter; Y92.9 Unspecified place or not applicable; Y93.9 Activity, unspecified

== ENCOUNTER 2017-05-08 12:16 | Emergency (ER) | payer OTHER ==
[~2017-05-08] VITALS: Ht 157.5 cm; Wt 52.2 kg
[~2017-05-08 12:16] MED LIST changes: +CYCLOBENZAPRINE10 M1 PO
[2017-05-08 12:33] VITALS: BP 121/82
--- NOTE | 2017-05-08 12:59 | ED NECK/BACK PAIN COMPLAINT ---
History of Present Illness General Chief Complaint: Neck/Upper Back Pain/Injury Stated Complaint: BACK/NECK PAIN Source: patient Exam Limitations: no limitations Vital Signs & Intake/Output Vital Signs & Intake/Output Vital Signs Date Time Temp Pulse Resp B/P B/P Pulse O2 O2 Flow FiO2 Mean Ox Delivery Rate 05/08 1233 98.3 87 20 121/82 95 Room Air Allergies Coded Allergies: venom-honey bee (bee venom (honey bee)) (Severe, ANAPHYLAXIS 03/27/16) Triage Note: C/O NECK AND BACK PAIN X 2 YEARS, WORSE THE PAST 3 DAYS. STATES SHE HAS DISC PROTRUSIONS AND SPINAL STENOSIS. DENIES RECENT FALL OR INJURY. Triage Nurses Notes Reviewed? yes Onset: Gradual Duration: worse persistent since (4 days) Timing: recent history Quality/Severity: moderate Location: C-spine, lumbar spine, paraspinous muscles Radiation: none Context: old injury Method of Injury: prior injury Loss of Consciousness: no loss of consciousness Modifying Factors: immobilization, movement : No HPI: Patient is a 57-year-old female with history of chronic back pain, chronic back pain presenting to the emergency department complaining of worsening bilateral neck pain and stiffness 4 days. History of similar symptoms in the past. He usually comes emergency Department for evaluation. She reports she ran out of her pain medication. Denies any nausea or vomiting fevers or chills. No headaches. No visual changes. Denies any recent travel. No new injury. No numbness or tingling. Denies any weakness. Pain is worse with movement. Has been taking ibuprofen with no relief. History of spinal stenosis. Reports that her orthopedic discharged her until that is nothing else he can do for her. Pain does not radiate at this time. History of sciatica in the past. Denies abdominal pain. No change in stool color. Denies any hematochezia. (JAMES WADE,STUART) Reconcile Medications Alprazolam (Xanax) 1 MG TABLET 1 MG PO BID ANXIETY Carisoprodol (SOMA) 350 MG TABLET 350 MG PO TID PAIN Cyclobenzaprine HCl 10 MG TABLET 1 TAB PO QPM PRN MUSCLE RELAXOR Ibuprofen (Advil) 200 MG TABLET 4-5 TAB PO PRN PAIN (Reported) Levothyroxine Sodium 50 MCG TABLET 1 TAB PO DAILY THYROID (Reported) Meloxicam (Mobic) 15 MG TABLET 1 TAB PO DAILY PRN PAIN/INFLAMMATION Meloxicam (Mobic) 15 MG TABLET 1 TAB PO DAILY PRN pain Methocarbamol (Robaxin) 500 MG TABLET 1 TAB PO TID PRN muscle spasms Methotrexate 2.5 MG TABLET 5 TAB PO QMON RA (Reported) Multivitamin (Multi-Day Vitamins) 1 EACH TABLET 1 TAB PO DAILY SUPPLEMENT ( Reported) Oxycodone HCl/Acetaminophen (Percocet 5-325 MG Tablet) 5 MG-325 MG TABLET 1 TAB PO Q6H PRN PAIN Oxycodone HCl/Acetaminophen (Percocet 5-325 MG Tablet) 5 MG-325 MG TABLET 1-2 TAB PO Q4-6 PRN pain Oxycodone HCl/Acetaminophen (Percocet 5-325 MG Tablet) 5 MG-325 MG TABLET 1 TAB PO BID PRN PAIN Pantoprazole Sodium (Protonix) 40 MG TABLET.DR 1 TAB PO DAILY GERD Pregabalin (Lyrica) 100 MG CAPSULE 1 CAP PO BID NEVRE PAIN (Reported) Quetiapine Fumarate 100 MG TABLET 200 MG PO AT BEDTIME CLEAR THOUGHTS Quetiapine Fumarate (Seroquel) 50 MG TABLET 50 MG PO 0800,1300 CLEAR THOUGHTS (IRENE PAULSON,FRANCISCO) Past History Travel History Traveled to [place] past 21 day No Medical History Any Pertinent Medical History? 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 No (JAMES WADE,STUART) Review of Systems Review of Systems Constitutional: Reports: no symptoms. Comments Review of systems: See HPI, All other systems negative. Constitutional, no chills fever or weight loss HEENT: No visual changes no sore throat no congestion Cardiovascular: No chest pain ,palpitation , orthopnea or ankle swelling Skin, no jaundice no rashes Respiratory: No dyspnea cough sputum or hemoptysis GI: No nausea no vomiting : No dysuria No hematuria Muscle skeletal: Positive neck and back pain Neurologic: No numbness no confusion, no headaches Psych: No stress anxiety or depression,. Heme/endocrine: No bruising no bleeding no polyuria or polydipsia Immunology: No splenectomy or history of AIDS (STUART SEGUNDO) Physical Exam Physical Exam General Appearance: well developed/nourished, no apparent distress, alert, awake , comfortable Neck: muscle spasm, tenderness to palpation along the cervical paraspinal muscles and left trapezius muscle. No C-spine tenderness. Comments: Well-developed well-nourished person in no acute distress HEENT: Pupils equally round and reactive to light and accommodation. Nose is atraumatic. Neck: Supple, no lymphadenopathy, limited range of motion with lateral flexion and with flexion and extension secondary to pain. Pain to palpation over the cervical paraspinal muscles bilaterally. Left greater than right. Also pain to palpation of the left trapezius muscle. Positive muscle spasm over this area. Back: Tender to palpation in the lumbar paraspinal muscles bilaterally. No CVA tenderness bilaterally. nEar full range of motion with forward flexion and back extension. Negative MIBI straight leg raise bilaterally. Cardiovascular: Regular rate and rhythms no murmurs rubs or gallops, normal JVP Respiratory: Chest nontender. No respiratory distress.breath sounds clear to auscultation bilaterally Abdomen: Soft, nontender nondistended, no appreciable organomegaly. Normal bowel sounds. No ascites Extremity: No edema, no calf tenderness to palpation, normal and equal pulses. Full range of motion of upper extremity is without difficulty or pain. Able to march in place with mild discomfort in the low back. Muscular strength is 5 out of 5 in upper and lower extremities all seated. Neuro: Alert oriented x3, motor sensory normal, patellar reflexes are 2+ bilaterally. Skin: No appreciable rash on exposed skin, skin is warm and dry. Psych: Mood and affect is normal, memory and judgment is normal. (STUART SEGUNDO) Progress Differential Diagnosis: cauda equina syn, herniated disc, myofascial strain, pyelo/UTI, sciatica, ureterolithiasis, cervical strain. Plan of Care: 05/08/2017 1:07:40 PM patient is well-appearing and in no acute distress, afebrile. History of chronic pain has been seen and evaluated here several times. No bony tenderness to palpation and neurologically intact on exam. Likely exacerbation of chronic pain. Patient will be given contact information for pain management as she has been to the emergency department for pain medication several times over the past several months. She was informed that she may need repeat MRI if symptoms persists, she reports MRI was done 6 months ago. Patient given limited prescription for Percocet and Robaxin. (STUART SEGUNDO) Departure Departure Time of Disposition: 1308 Disposition: HOME OR SELF CARE Condition: Stable Clinical Impression Primary Impression: Chronic pain Qualifiers: Chronic pain type: other chronic pain Qualified Code: G89.29 - Other chronic pain Secondary Impressions: Neck pain Referrals: SHARONDA PAULSON,NOELLE (PCP/Family) FREEDOM PAULSON,SHERWIN Lemon Additional Instructions: Follow-up with pain management call to make an appointment, as the emergency department cannot continue to distribute pain medications for chronic pain. Take muscle relaxer and Percocet as prescribed. Return for worsening symptoms or concerns. Avoid any heavy lifting or sudden movements. Your prescriptions were sent to [facility]. Departure Forms: Customer Survey General Discharge Information Prescriptions: Current Visit Scripts Methocarbamol (Robaxin) 1 TAB PO TID PRN muscle spasms #20 TAB Oxycodone HCl/Acetaminophen (Percocet 5-325 MG Tablet) 1-2 TAB PO Q4-6 PRN pain #8 TAB (STUART SEGUNDO) PA/ARTILLERY METEOROLOGICAL MAN Co-Sign Statement Statement: ED Attending supervision documentation- I saw and evaluated the patient. I have also reviewed all the pertinent lab results and diagnostic results. I agree with the findings and the plan of care as documented in the PA's/ARTILLERY METEOROLOGICAL MAN's documentation. x I have reviewed the ED Record and agree with the PA's/ARTILLERY METEOROLOGICAL MAN's documentation. [] Additions or exceptions (if any) to the PAs/ARTILLERY METEOROLOGICAL MAN's note and plan are summarized below: [] (IRENE PAULSON,FRANCISCO)
[2017-05-08] MEDS ORDERED: PERCOCET 5-3251 EACH PO (13:10)
[2017-05-08] MEDS ORDERED: ROBAXIN500 M1 PO (13:10)
== END 2017-05-08 13:19 ==
LOC: ERH 12:16
DX: M54.2 Cervicalgia (principal)

== ENCOUNTER 2018-02-12 13:18 | Emergency (ER) | payer OTHER ==
[~2018-02-12] VITALS: Ht 165.1 cm; Wt 49.9 kg
[~2018-02-12 13:18] MED LIST changes: +ADVAIR 250-501 EACH INH; +BACLOFEN20 M1 PO; +HYDROCODON-ACE1 EAC2 PO; +IBUPROFEN600 M1 PO; +NORCO 5-325 TA1 EACH PO; +PRAZOSIN HCL1 M1 PO; +ROBAXIN500 M1 PO; +ZOFRAN ODT4 M1 PO; +ZOFRAN4 M2 PO
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
[2018-02-12 14:49] LABS: ABSOLUTE BASOPHIL COUNT 0 /CUMM (0.0-0.2); ABSOLUTE EOSINOPHIL COUNT 0 /CUMM (0.0-0.7); ABSOLUTE GRANULOCYTE CT 4.1 /CUMM (1.4-6.5); ABSOLUTE MONOCYTE COUNT 0.3 /CUMM (0.10-0.60); BASOPHIL % 0.4 % (0.0-2.0); EOSINOPHIL % 0.5 % (0-5); GRANULOCYTE % 75.1 % (42.2-75.2); HEMATOCRIT 41.2 % (37-47); MEAN CORPUSCULAR HGB 30.9 PG (27.0-31.0); MEAN CORPUSCULAR VOLUME 96.6 FL (81.0-99.0); MEAN PLATELET VOLUME 7.8 FL (7.4-10.4); PLATELET COUNT 341 /CUMM (130-400); RBC DISTRIBUTION WIDTH 16.2 % (11.5-14.5); RED BLOOD CELL CT 4.27 /CUMM (4.20-5.40); WHITE BLOOD CELL COUNT 5.5 /CUMM (4.8-10.8)
[2018-02-12 14:57] LABS: PT 11.3 SEC (9.4-12.5); PTT 26 SEC (25-37)
--- NOTE | 2018-02-12 16:27 | History & Physical Pre-Op ---
General Information and HPI MD Statement: I have seen and personally examined DOUG MCKEON and documented this H&P. The patient is a 57 year old F who presented with a patient stated chief complaint of [abdominal pain and vomiting]. History of Present Illness: This is a 57-year-old woman who presents to the emergency room for the second time in the past week. She complains of epigastric and right upper quadrant abdominal pain with radiation to the back. Symptoms and associated with vomiting and anorexia. Her pain symptoms began about a week ago. She denies episodes previously. Allergies/Medications Allergies: Coded Allergies: venom-honey bee (bee venom (honey bee)) (Severe, ANAPHYLAXIS 02/12/18) Home Med list Alprazolam (Xanax) 1 MG TABLET 1 MG PO BID ANXIETY Carisoprodol (SOMA) 350 MG TABLET 350 MG PO BID PAIN Ibuprofen 600 MG TABLET 1 TAB PO TID PRN pain with food Levothyroxine Sodium 50 MCG TABLET 1 TAB PO DAILY AC THYROID (Reported) Methotrexate 2.5 MG TABLET 5 TAB PO QMON RA (Reported) Multivitamin (Multi-Day Vitamins) 1 EACH TABLET 1 TAB PO DAILY SUPPLEMENT ( Reported) Ondansetron (Zofran Odt) 4 MG TAB.RAPDIS 1 TAB PO Q6 PRN NAUSEA Quetiapine Fumarate (Seroquel) 50 MG TABLET 50 MG PO 0800,1300 CLEAR THOUGHTS Quetiapine Fumarate 100 MG TABLET 1 TAB PO AT BEDTIME SLEEP Past History Medical History Neurological: NONE EENT: ALLERGIES- SEASONAL; BEES (seasonal allergies) Cardiovascular: NONE Respiratory: NONE Gastrointestinal: ACID REFLUX Hepatic: NONE Renal: NONE Musculoskeletal: osteoarthritis, spinal stenosis (CERVICAL), RheUmatoid Arthritis Psychiatric: anxiety, ptsd Endocrine: hypothyroidism Blood Disorders: NONE Cancer(s): NONE FAMILY REUNIFICATION SPECIALIST/Reproductive: 2 C SECTIONS History of MRSA: No History of VRE: No History of CDIFF: No Surgical History Pertinent Surgical History: , spinal fusion (lumbar and cervical) Past Family/Social History Psychosocial History Services at Home None Smoking Status: Current Everyday Smoker ETOH Use: occasional use Illicit Drug Use: denies illicit drug use Functional Ability ADLs Independent: dressing, eating, toileting, bathing. Review of Systems Review of Systems: No exertional chest pain or dyspnea. Denies hypertension hypercholesterolemia and diabetes mellitus. Abdominal pain per HPI. No dysuria. Chronic back pain is present. Remainder 10 points negative Exam & Diagnostic Data Last 24 Hrs of Vital Signs/I&O Vital Signs Date Time Temp Pulse Resp B/P B/P Pulse O2 O2 Flow FiO2 Mean Ox Delivery Rate 02/12 1322 96.6 87 15 152/87 97 Room Air Room Air Intake & Output 02/12 1600 02/12 0800 02/12 0000 Intake Total Output Total Balance Patient 110 lb Weight Weight Reported by Patient Measurement Method Physical Exam: Gen.: She looks her stated age and is of average body habitus. No distress HEENT: Anicteric PERRL EOMI Chest clear bilaterally, regular rate rhythm Abdomen: Soft and tender in the epigastrium, nondistended no hernias no mass Extremities: No cyanosis clubbing or edema Last 24 Hrs of Labs/Yuri: Laboratory Tests 02/12/18 1447: Urine Opiates Screen < 100, Methadone Screen 71, Barbiturate Screen < 60, Ur Phencyclidine Scrn < 6.00, Amphetamines Screen < 100, U Benzodiazepines Scrn > 800 H, Urine Cocaine Screen < 50, Urine Cannabis Screen < 5.00, Urine Color YEL , Urine Clarity CLEAR, Urine pH 7.0, Ur Specific [place] 1.010, Urine Protein NEG, Urine Ketones NEG, Urine Nitrite NEG, Urine Bilirubin NEG, Urine Urobilinogen 0.2, Ur Leukocyte Esterase NEG, Ur Microscopic EXAM NOT REQUIRED, Urine Hemoglobin NEG, Urine Glucose NEG 02/12/18 1438: Anion Gap 12, Estimated GFR > 60, BUN/Creatinine Ratio 13.3, Glucose 85, Calcium 9.0, Total Bilirubin 0.5, AST 20, ALT 15, Alkaline Phosphatase 90, Total Protein 7.4, Albumin 4.1, Globulin 3.3, Albumin/Globulin Ratio 1.2, Lipase 26, PT 11.3, INR 1.04, APTT 26, CBC w Diff NO MAN DIFF REQ, RBC 4.27, MCV 96.6, MCH 30.9, MCHC 32.0 L, RDW 16.2 H, MPV 7.8, Gran % 75.1, Lymphocytes % 18.6 L, Monocytes % 5.4, Eosinophils % 0.5, Basophils % 0.4, Absolute Granulocytes 4.1, Absolute Lymphocytes 1.0 L, Absolute Monocytes 0.3, Absolute Eosinophils 0, Absolute Basophils 0, Serum Alcohol < 10.0 Assessment/Plan Assessment/Plan: 57-year-old woman with recurrent biliary colic and/or acute cholecystitis. CT scan performed last admission showed distended gallbladder with multiple stones in the neck of the gallbladder. Recommend laparoscopic cholecystectomy. Patient was previously arranged to be seen in our office as an outpatient. Due to her recurrent pain she elected to come back to the emergency room. Therefore plan will be to take her to the OR for laparoscopic cholecystectomy. She is informed the risks of the operation including bleeding infection, conversion to open, organ injury, chronic diarrhea and she agrees to proceed As Ranked By This Provider Problem List: 1. Acute cholecystitis Copies To: Isabelle PAULSON,Jeri
[2018-02-12 16:29] VITALS: BP 130/90
--- NOTE | 2018-02-12 17:33 | Operative Report ---
Operative/Inv Procedure Report Surgery Date: 02/12/18 Name of Procedure: Laparoscopic cholecystectomy Pre-Operative Diagnosis: Acute cholecystitis Post-Operative Diagnosis: Same Estimated Blood Loss: scant Surgeon/Telemarketing Fundraiser: Khanh Tapia M.D./Kianna WADE Anesthesia: general endotracheal tube Drains: None Specimens: Gallbladder Operative Indication: See preoperative H&P Operative/Procedure Note Note: After informed consent patient is brought to the operating room and laid supine. General anesthesia was obtained and her abdomen was prepped and draped. The skin above the umbilicus infiltrated with local anesthesia and a curvilinear incision made sharply. We came down through the subcutaneous tissues bluntly and grasped the fascia with Ly's. A fasciotomy was created sharply and stay sutures placed. The peritoneum was entered sharply and a blunt Reyes port was placed. Pneumoperitoneum was achieved. 3, 5 mm ports were placed in the epigastrium and right upper quadrant after local anesthesia was instilled and under direct vision the camera. She's placed in reverse Trendelenburg and rotated towards the left. The gallbladder is identified. It was grasped at the dome and retracted towards the head. Infundibulum was then grasped. Adhesions to the undersurface were taken down with blunt and cautery dissection. The duodenum was loosely adherent to the infundibulum. The adhesions were taken down with blunt dissection taking care not to tear the adhesions near the duodenum. We dissected both sides the triangle Calot peritoneal tissue with cautery. The artery was medial and its normal anatomic position. It was cauterized medially to allow it to be mobilized away from the duct. [place] was cleared of areolar tissue with cautery. The arteries and duct were doubly ligated with clips. Gallbladder is removed from the fossa electrocautery. It was placed in Endo Catch bag and cinched up. Right upper quadrant was and suction irrigated normal saline. Hemostasis achieved with cautery. The ports were then removed and the gallbladder delivered and passed off the field. The fascia was closed with 0 Vicryl suture. Skin incisions closed with 4-0 Vicryl. Steri-Strips and sterile dressing applied. Sponge and needle counts are correct. CC: Isabelle PAULSON,Jeri
== END 2018-02-12 16:14 ==
LOC: ERH 13:18 → ER-OR 13:23
PROVIDERS: Emergency Medicine
DX: K80.20 Calculus of gallbladder without cholecystitis without obstruction (principal); K21.9 Gastro-esophageal reflux disease without esophagitis; F41.9 Anxiety disorder, unspecified; F43.10 Post-traumatic stress disorder, unspecified; E03.9 Hypothyroidism, unspecified; F17.210 Nicotine dependence, cigarettes, uncomplicated
CPT/HCPCS: 80307; 81003; 96374; G0480; J0131; J2405

== ENCOUNTER 2018-03-27 21:05 | Emergency (ER) | payer OTHER ==
[~2018-03-27 21:05] MED LIST changes: +DAILY VALUE1 EACH PO; +IMODIUM A-D2 M1 PO; +LEVSIN-SL0.125 MG SL; -MULTI-DAY VITA1 EACH PO; +PEPCID20 M1 PO; +REGLAN10 M1 PO
[2018-03-27 22:22] LABS: ABSOLUTE BASOPHIL COUNT 0 /CUMM (0.0-0.2); ABSOLUTE EOSINOPHIL COUNT 0.1 /CUMM (0.0-0.7); ABSOLUTE GRANULOCYTE CT 2.1 /CUMM (1.4-6.5); ABSOLUTE LYMPH COUNT 1.6 /CUMM (1.2-3.4); ABSOLUTE MONOCYTE COUNT 0.4 /CUMM (0.10-0.60); BASOPHIL % 0.7 % (0.0-2.0); EOSINOPHIL % 1.9 % (0-5); HEMATOCRIT 37.3 % (37-47); MEAN CORPUSCULAR HGB 31.2 PG (27.0-31.0); MEAN CORPUSCULAR VOLUME 94.6 FL (81.0-99.0); PLATELET COUNT 258 /CUMM (130-400); RBC DISTRIBUTION WIDTH 14.9 % (11.5-14.5); RED BLOOD CELL CT 3.94 /CUMM (4.20-5.40); WHITE BLOOD CELL COUNT 4.3 /CUMM (4.8-10.8)
--- NOTE | 2018-03-27 23:09 | ED GI/GU/ABDOMINAL COMPLAINT ---
History of Present Illness General Chief Complaint: Abdominal Pain/Flank Pain Stated Complaint: ABD PAIN/N+V Source: patient, old records Exam Limitations: no limitations Vital Signs & Intake/Output Vital Signs & Intake/Output Vital Signs Date Time Temp Pulse Resp B/P B/P Pulse O2 O2 Flow FiO2 Mean Ox Delivery Rate 03/278 98.2 91 16 172/93 94 Room Air ED Intake and Output 03/28 0000 03/27 1200 Intake Total 1000 Output Total Balance 1000 Intake, IV 1000 Patient 110 lb Weight Weight Reported by Patient Measurement Method Allergies Coded Allergies: venom-honey bee (bee venom (honey bee)) (Severe, ANAPHYLAXIS 03/15/18) ketorolac (From TORADOL) (ITCHING 03/15/18) Reconcile Medications Alprazolam (Xanax) 1 MG TABLET 1 MG PO BID ANXIETY Carisoprodol (SOMA) 350 MG TABLET 350 MG PO BID PAIN Famotidine (Pepcid) 20 MG TABLET 1 TAB PO BID gastritis Hyoscyamine Sulfate (Levsin-Sl) 0.125 MG TAB.SUBL 1-2 TAB SL Q4P PRN abdominal pain Ibuprofen 600 MG TABLET 1 TAB PO TID PRN pain with food Levothyroxine Sodium 50 MCG TABLET 1 TAB PO DAILY AC THYROID (Reported) Loperamide HCl (Imodium A-D) 2 MG TABLET 0 PO SEE ADMIN CRITERIA PRN diarrhea 1 tab after each loose stool up to 7 per day Methotrexate 2.5 MG TABLET 5 TAB PO QMON RA (Reported) Metoclopramide HCl (Reglan) 10 MG TABLET 1 TAB PO 4 TIMES/DAY PRN nausea, vomiting 30 minutes before meals and bedtime Multivitamin (Multi-Day Vitamins) 1 EACH TABLET 1 TAB PO DAILY SUPPLEMENT ( Reported) Ondansetron (Zofran Odt) 4 MG TAB.RAPDIS 1 TAB PO Q6 PRN NAUSEA Oxycodone HCl/Acetaminophen (Percocet 5-325 MG Tablet) 5 MG-325 MG TABLET 1-2 TAB PO Q6P PRN PAIN Quetiapine Fumarate (Seroquel) 50 MG TABLET 50 MG PO 0800,1300 CLEAR THOUGHTS Quetiapine Fumarate 100 MG TABLET 1 TAB PO AT BEDTIME SLEEP Triage Note: PT TO ED WTIH C/O MID ABD PAIN, N/V. HAS ENDOSCOPY SCHEDULED FOR THIS COMING SATURDAY. HAD GALLBLADDER REMOVED ONE MONTH AGO. TAKING PRESCRIBED ANTACIDS. Triage Nurses Notes Reviewed? yes LMP (ages 10-50): post menopausal ? n Is pt currently ? No (n) Onset: 2 days Duration: day(s):, constant, continues in ED Timing: recent history Quality/Severity: moderate Location: generalized abdomen Activities at Onset: none Prior Abdominal Problems: similar symptoms Past Sexual History: Unobtainable at this time Modifying Factors: Worsens With: eating. Associated Symptoms: abdominal pain, loss of appetite, nausea/vomiting HPI: 2 days prior to admission patient complains of recurrent generalized abdominal discomfort moderate to severe with anorexia nausea vomiting unable to eat or drink with associated fatigue. She denies fever chills diarrhea chest pain cough shortness of breath headache dysuria rash bleeding. She reports having endoscopy scheduled for Saturday. Past History Travel History Traveled to [place] past 21 day No Medical History Any Pertinent Medical History? 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 No Review of Systems Review of Systems Constitutional: Reports: see HPI, malaise. EENTM: Reports: no symptoms. Respiratory: Reports: no symptoms. Cardiovascular: Reports: no symptoms. GI: Reports: see HPI, abdominal pain, nausea, vomiting. Genitourinary: Reports: no symptoms. Musculoskeletal: Reports: no symptoms. Skin: Reports: no symptoms. Neurological/Psychological: Reports: no symptoms. Hematologic/Endocrine: Reports: no symptoms. Immunologic/Allergic: Reports: no symptoms. All Other Systems: Reviewed and Negative Physical Exam Physical Exam General Appearance: well developed/nourished, alert, awake, anxious, moderate distress, thin Head: atraumatic, normal appearance Eyes: Bilateral: normal appearance, PERRL, EOMI, normal inspection. Ears, Nose, Throat, Mouth: hearing grossly normal, dry mucous membranes Neck: normal inspection, supple, full range of motion, normal alignment Respiratory: normal breath sounds, chest non-tender, no respiratory distress, quiet respiration, lungs clear Cardiovascular: regular rate/rhythm, normal peripheral pulses, norml femoral pulses equa Peripheral Pulses: 4+ carotid (R), 4+ carotid (L) Gastrointestinal: normal bowel sounds, soft, non-tender, no organomegaly Back: normal inspection, normal range of motion Extremities: normal range of motion, no ligament instability Neurologic/Psych: no motor/sensory deficits, awake, alert, oriented x 3, normal gait, normal mood/affect, card table attendant II-XII nml as tested Skin: intact, normal color, warm/dry Core Measures ACS in differential dx? No Sepsis Present: No Sepsis Focused Exam Completed? No Progress Differential Diagnosis: gastritis, PUD/GERD Plan of Care: Orders Procedure Date/time Status LIPASE 03/27 2141 Complete COMPREHENSIVE METABOLIC PANEL 03/27 2141 Complete CBC WITHOUT DIFFERENTIAL 03/27 2141 Complete AMYLASE 03/27 2141 Complete Laboratory Tests 03/27/18 2206: Anion Gap 11, Estimated GFR > 60, BUN/Creatinine Ratio 28.3 H, Glucose 93, Calcium 9.1, Total Bilirubin 0.7, AST 21, ALT 9, Alkaline Phosphatase 76, Total Protein 7.1, Albumin 4.3, Globulin 2.8, Albumin/Globulin Ratio 1.5, Amylase 70, Lipase 41, CBC w Diff NO MAN DIFF REQ, RBC 3.94 L, MCV 94.6, MCH 31.2 H, MCHC 33.0, RDW 14.9 H, MPV 8.0, Gran % 49.0, Lymphocytes % 38.0, Monocytes % 10.4 H , Eosinophils % 1.9, Basophils % 0.7, Absolute Granulocytes 2.1, Absolute Lymphocytes 1.6, Absolute Monocytes 0.4, Absolute Eosinophils 0.1, Absolute Basophils 0 Initial ED EKG: none Departure Departure Time of Disposition: 220 Disposition: HOME OR SELF CARE Condition: Stable Clinical Impression Primary Impression: Gastritis and duodenitis Secondary Impressions: Dehydration, Nausea and vomiting Referrals: Isabelle PAULSON,Jeri (PCP/Family) Denis Gasca MD Departure Forms: Customer Survey General Discharge Information Denis Gasca MD Departure Forms: Customer Survey General Discharge Information
[2018-03-28 03:20] VITALS: BP 149/76
[2018-04-04] MEDS ORDERED: PERCOCET 5-3251 EACH PO (10:27)
[2018-05-17] MEDS ORDERED: DICYCLOMINE HCL20 M1 PO (18:05)
[2018-05-17] MEDS ORDERED: ZOFRAN ODT4 M1 SL (18:05)
[2018-05-29] MEDS ORDERED: ACETAMINOPHEN500 M4 PO (18:31)
[2018-05-29] MEDS ORDERED: ADVIL200 M1 PO (18:31)
[2018-06-12] MEDS ORDERED: PROMETHAZINE HC25 M3 PO (15:22)
[2018-06-12] MEDS ORDERED: MEDROL4 M2 PO (15:22)
[2018-06-12] MEDS ORDERED: ZEBUTAL 50-3251 EACH PO (15:22)
[2018-06-20] MEDS ORDERED: TRAMADOL HCL50 M1 PO (02:40)
[2018-06-20] MEDS ORDERED: BACLOFEN10 M1 PO (02:40)
== END 2018-03-28 03:23 ==
LOC: ERH 21:05
PROVIDERS: Emergency Medicine
DX: K29.70 Gastritis, unspecified, without bleeding (principal); K29.80 Duodenitis without bleeding; E86.0 Dehydration
CPT/HCPCS: 96361; 96374; 96375; J0131; J2765

== ENCOUNTER → 2018-04-04 | Day surgery (SDC) | payer OTHER ==
[~2018-04-04] VITALS: Ht 157.5 cm; Wt 49.9 kg
[~2018-04-04] MED LIST changes: -DAILY VALUE1 EACH PO; +KLOR-CON 1010 ME1 PO; +MULTI-DAY VITA1 EACH PO; +ZOFRAN ODT4 M1 SL
--- NOTE | 2018-04-04 10:14 | Operative Report ---
Operative/Inv Procedure Report Surgery Date: 04/04/18 Name of Procedure: Incarcerated ventral hernia repair Pre-Operative Diagnosis: Incarcerated ventral hernia Post-Operative Diagnosis: Same Estimated Blood Loss: scant Surgeon/Product Support Analyst: Willie PAULSON,Khanh Contreras/Katie WADE Anesthesia: general endotracheal tube Implants: None Specimens: Incarcerated fat Operative/Procedure Note Note: After consent patient brought to the operating room and laid supine. Gen. anesthesia was obtained and her abdomen was prepped and draped. There was a incarcerated supraumbilical hernia. The areas after local anesthesia an incision made over it. We dissected around a large amount of fatty tissue. The fascial defect was quite small in the contents could not be reduced. The fat was then transected with cautery and passed off the field. There was a portion of some intraperitoneal omentum which was then reduced. The defect was subcentimeter. It was not repair with mesh due to its small size. Fascial defect was then reapproximated with interrupted 0 Vicryl sutures. Wound was irrigated with saline and closed in layers of absorbable sutures. Steri-Strips and sterile dressing applied. Sponge and needle counts are correct CC: Isabelle PAULSON,Jeri
== END ==
LOC: STS 01:16
DX: K43.6 Other and unspecified ventral hernia with obstruction, without gangrene (principal); E03.9 Hypothyroidism, unspecified; M06.9 Rheumatoid arthritis, unspecified; F17.210 Nicotine dependence, cigarettes, uncomplicated
CPT/HCPCS: C9399; J0690; J1100; J2250; J2405; J3490

== ENCOUNTER 2018-04-05 16:36 | Emergency (ER) | payer OTHER ==
[~2018-04-05 16:36] MED LIST changes: -KLOR-CON 1010 ME1 PO; -ZOFRAN ODT4 M1 SL
[2018-04-05 17:06] LABS: ABSOLUTE BASOPHIL COUNT 0 /CUMM (0.0-0.2); ABSOLUTE EOSINOPHIL COUNT 0 /CUMM (0.0-0.7); ABSOLUTE GRANULOCYTE CT 4.2 /CUMM (1.4-6.5); ABSOLUTE LYMPH COUNT 1.8 /CUMM (1.2-3.4); ABSOLUTE MONOCYTE COUNT 0.4 /CUMM (0.10-0.60); BASOPHIL % 0.4 % (0.0-2.0); EOSINOPHIL % 0.6 % (0-5); GRANULOCYTE % 65.3 % (42.2-75.2); MEAN CORPUSCULAR HGB CONC 33.5 G/DL (33.0-37.0); MEAN CORPUSCULAR VOLUME 95.3 FL (81.0-99.0); MEAN PLATELET VOLUME 7.9 FL (7.4-10.4); PLATELET COUNT 243 /CUMM (130-400); RBC DISTRIBUTION WIDTH 15.2 % (11.5-14.5); RED BLOOD CELL CT 3.77 /CUMM (4.20-5.40); WHITE BLOOD CELL COUNT 6.5 /CUMM (4.8-10.8)
--- NOTE | 2018-04-05 17:55 | ED GI/GU/ABDOMINAL COMPLAINT ---
History of Present Illness General Chief Complaint: Abdominal Pain/Flank Pain Stated Complaint: ABD PAIN AND NAUSEA Source: patient Exam Limitations: no limitations Vital Signs & Intake/Output Vital Signs & Intake/Output Vital Signs Date Time Temp Pulse Resp B/P B/P Pulse O2 O2 Flow FiO2 Mean Ox Delivery Rate 04/05 1935 102 18 174/81 99 Room Air 04/05 1659 98 Room Air 04/05 1651 98.1 69 16 167/85 98 Room Air Allergies Coded Allergies: venom-honey bee (bee venom (honey bee)) (Severe, ANAPHYLAXIS 04/03/18) ketorolac (From TORADOL) (ITCHING 04/03/18) Reconcile Medications Alprazolam (Xanax) 1 MG TABLET 1 MG PO BID ANXIETY Carisoprodol (SOMA) 350 MG TABLET 350 MG PO BID PAIN Famotidine (Pepcid) 20 MG TABLET 1 TAB PO BID gastritis Hyoscyamine Sulfate (Levsin-Sl) 0.125 MG TAB.SUBL 1-2 TAB SL Q4P PRN abdominal pain Ibuprofen 600 MG TABLET 1 TAB PO TID PRN pain with food Levothyroxine Sodium 50 MCG TABLET 1 TAB PO DAILY AC THYROID (Reported) Loperamide HCl (Imodium A-D) 2 MG TABLET 0 PO SEE ADMIN CRITERIA PRN diarrhea 1 tab after each loose stool up to 7 per day Methotrexate 2.5 MG TABLET 5 TAB PO QMON RA (Reported) Metoclopramide HCl (Reglan) 10 MG TABLET 1 TAB PO 4 TIMES/DAY PRN nausea, vomiting 30 minutes before meals and bedtime Multivitamin (Multi-Day Vitamins) 1 EACH TABLET 1 TAB PO DAILY SUPPLEMENT ( Reported) Ondansetron (Zofran Odt) 4 MG TAB.RAPDIS 1 TAB SL TID PRN NAUSEA Ondansetron (Zofran Odt) 4 MG TAB.RAPDIS 1 TAB PO Q6 PRN NAUSEA Oxycodone HCl/Acetaminophen (Percocet 5-325 MG Tablet) 5 MG-325 MG TABLET 1-2 TAB PO Q6P PRN PAIN Oxycodone HCl/Acetaminophen (Percocet 5-325 MG Tablet) 5 MG-325 MG TABLET 1 TAB PO Q6P PRN pain Potassium Chloride (Klor-Con 10) 10 MEQ TABLET.ER 1 TAB PO DAILY HYPO K Quetiapine Fumarate (Seroquel) 50 MG TABLET 50 MG PO 0800,1300 CLEAR THOUGHTS Quetiapine Fumarate 100 MG TABLET 1 TAB PO AT BEDTIME SLEEP Triage Note: PT BIBA FROM HOME WITH C/O INTRACTABLE ABDOMINAL PAIN S/P HERNIA SURGERY YESTERDAY. PT REPORTS THAT SHE AWOKE THIS AM AND FELT THOUGH SHE HAD THE CHILLS SO SHE TOOK SOME TYLENOL. DID NOT CHECK TEMP. AT APPROX NOON, THE SURGICAL SITE WAS PAINFUL AND PT REPORTS THAT SHE TOOK TWO PERCOCET WITHOUT RELIEF. PT ALSO REPORTS THAT SHE TOOK SEVERAL OTHER MEDICATIONS PRESCRIBED POST OP. PT ARRIVES A&O, C/O PAIN AT INCISION SITE AND EXTENDING UPWARD TO XYPHOID PROCESS. DRESSING INTACT WITH NO BLEEDING OR DRAINAGE NOTED Triage Nurses Notes Reviewed? yes LMP (ages 10-50): post menopausal, unknown ? n Is pt currently ? No Onset: Abrupt Duration: day(s): (2), constant, continues in ED, getting worse Timing: recent history Quality/Severity: moderate, sharpness Severity Numbers: 9 Location: periumbilical Radiation: no radiation Activities at Onset: none Prior Abdominal Problems: similar symptoms Past Sexual History: Unobtainable at this time No Modifying Factors: none Modifying Factors: Worsens With: movement, palpation. Associated Symptoms: abdominal pain, nausea/vomiting HPI: 57-year-old female past medical history of anxiety, PTSD, hypothyroidism evaluation of abdominal pain, nausea and vomiting. Patient reports symptoms started yesterday after she had a hernia repair surgery. Patient had a laparoscopic umbilical hernia repair done yesterday. She states that since his surgery the pain is been present and getting worse. The pain is located in the area of the incisions it is worse with movement or touching the area. There's been no discharge swelling or fever. She is having normal bowel movements. She does report nausea and vomiting. She's not been tolerating much solid food but is tolerating some fluids. She denies chest pain shortness of breath, hemoptysis or lower extremity edema. She's been taking Percocet without any improvement. (Kenneth Wright) Past History Travel History Traveled to [place] past 21 day No Medical History Any Pertinent Medical History? 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 No (Kenneth Wright) Review of Systems Review of Systems Constitutional: Reports: no symptoms. EENTM: Reports: no symptoms. Respiratory: Reports: no symptoms. Cardiovascular: Reports: no symptoms. GI: Reports: see HPI, abdominal pain, nausea, vomiting. Genitourinary: Reports: no symptoms. Musculoskeletal: Reports: no symptoms. Skin: Reports: no symptoms. Neurological/Psychological: Reports: no symptoms. Hematologic/Endocrine: Reports: no symptoms. Immunologic/Allergic: Reports: no symptoms. All Other Systems: Reviewed and Negative (Kenneth Wright) Physical Exam Physical Exam General Appearance: well developed/nourished, no apparent distress, alert, awake Head: atraumatic, normal appearance Eyes: Bilateral: normal appearance, PERRL, EOMI, normal inspection. Ears, Nose, Throat, Mouth: hearing grossly normal, moist mucous membrane Neck: normal inspection, supple, full range of motion Respiratory: normal breath sounds, chest non-tender, no respiratory distress, lungs clear Cardiovascular: regular rate/rhythm, normal peripheral pulses Peripheral Pulses: 2+ radial (R), 2+ radial (L) Gastrointestinal: normal bowel sounds, soft, no organomegaly, tenderness, surgical incisions present in the lower abdomen and periumbilical area. They are well healed well approximated. There is no discharge swelling or erythema. There is tenderness palpation in the periumbilical area and around the surgical incisions. No rebound tenderness or guarding no induration abdomen is soft Back: normal inspection, normal range of motion, no vertebral tenderness Extremities: normal range of motion Neurologic/Psych: no motor/sensory deficits, awake, alert, oriented x 3, normal gait, normal mood/affect Skin: intact, normal color, warm/dry Core Measures ACS in differential dx? No Sepsis Present: No Sepsis Focused Exam Completed? No (Kenneth Wright) Progress Differential Diagnosis: appendicitis, biliary colic, bowel obstruction, cholecystitis, diverticulitis, hernia, ischemic bowel, kidney stone, Ashly- Suyapa tear, ovarian cyst, ovarian torsion, pancreatitis, peptic ulcer, PUD/GERD, SBO, UTI/pyelo Plan of Care: Orders Procedure Date/time Status Add-on Test (ER Only) 04/05 1852 Active EKG 04/05 1852 Active PHOSPHORUS 04/05 1657 Complete MAGNESIUM 04/05 1657 Complete LIPASE 04/05 1653 Complete LACTIC ACID 04/05 1653 Complete COMPREHENSIVE METABOLIC PANEL 04/05 1653 Complete CBC WITHOUT DIFFERENTIAL 04/05 1653 Complete Laboratory Tests 04/05/181952: Lactic Acid Cancelled 04/05/181656: Anion Gap 11, Estimated GFR > 60, BUN/Creatinine Ratio 15.0, Glucose 102 H, Lactic Acid 1.2, Calcium 8.4, Phosphorus 2.5, Magnesium 1.6, Total Bilirubin 0.3 , AST 77 H, ALT 61 H, Alkaline Phosphatase 90, Total Protein 6.7, Albumin 3.9, Globulin 2.8, Albumin/Globulin Ratio 1.4, Lipase 28, CBC w Diff NO MAN DIFF REQ, RBC 3.77 L, MCV 95.3, MCH 32.0 H, MCHC 33.5, RDW 15.2 H, MPV 7.9, Gran % 65.3 , Lymphocytes % 27.7, Monocytes % 6.0, Eosinophils % 0.6, Basophils % 0.4, Absolute Granulocytes 4.2, Absolute Lymphocytes 1.8, Absolute Monocytes 0.4, Absolute Eosinophils 0, Absolute Basophils 0 Patient seen and evaluated. She is here with abdominal pain status post umbilical hernia repair yesterday. The pain has been present since surgery. She reports associated nausea and vomiting no diarrhea no fevers. Incisions appear well-healed without erythema discharge swelling or induration. Vital signs are stable. Patient was medicated with morphine and IV Tylenol. Zofran for nausea. Basic blood work was obtained a CT scan the abdomen and pelvis with contrast obtained. Blood work shows a potassium of 3. 40 mg of K-Dur ordered no EKG changes. Remaining blood work is not significant change. CT scan of the abdomen and pelvis shows expected postsurgical changes without acute findings. No signs of abscess. No white count patient is afebrile appears currently well. She is feeling better after morphine and Zofran. pt Was able to tolerate by mouth in the emergency department. No vomiting in the emergency department. She'll be given a prescription for Zofran. Continue Percocet as needed. She was given several days' worth of oral potassium supplement. Advised that she needs to follow up with someone for a recheck in a few days. Also follow up with general surgery in the next few days for recheck. Discussed return precautions in detail. Patient agrees the plan Diagnostic Imaging: Viewed by Me: Radiology Read. Discussed w/RAD: Radiology Read. Radiology Impression: PATIENT: DOUG MCKEON PRESENT AGE: 57 PATIENT ACCOUNT NO: [id number] : 60 LOCATION: [facility] ORDERING PHYSICIAN: Kenneth WADE SERVICE DATE: 04/05/18 EXAM TYPE: CAT - CT ABD & PELVIS W IV CONTRAST EXAMINATION: CT ABDOMEN AND PELVIS WITH CONTRAST CLINICAL INFORMATION: One day status post umbilical hernia repair. Abdominal pain with nausea and vomiting. COMPARISON: CT of the abdomen and pelvis 03/03/2018. TECHNIQUE: Multidetector volumetric imaging was performed of the abdomen and pelvis following IV administration of 95 mL of Optiray 320 intravenous contrast. Sagittal and coronal reformatted images were obtained on the technologist's workstation. DLP: 264 mGy-cm FINDINGS: LUNG BASES: Mild subsegmental atelectasis bilaterally. LIVER, GALLBLADDER, AND BILIARY TREE: There is a stable subcentimeter focus of hypoattenuation at the hepatic dome (series 2 image 13). There is unchanged mild central intrahepatic biliary ductal dilatation and prominence of the common bile duct measuring up to 10 mm. There are surgical clips in the gallbladder fossa. PANCREAS: Unremarkable. SPLEEN: Unremarkable. ADRENAL GLANDS: Unremarkable. KIDNEYS AND URETERS: The kidneys are normal in size, shape, and attenuation. No hydronephrosis, hydroureter, or calculi seen. No perinephric stranding. BLADDER: Unremarkable. GASTROINTESTINAL TRACT: The stomach appears normal. The small bowel is nondistended. The large bowel appears normal. There is no bowel obstruction. The appendix is normal. An appendicolith is noted at the appendiceal tip but there is no periappendiceal stranding or fluid. ABDOMINAL WALL: There are postoperative findings related to recent umbilical hernia repair. There is a small amount of fluid and small foci of air in the midline abdominal wall compatible with recent operative changes. There is no rim-enhancing collection. There is no bowel containing hernia. LYMPH NODES: Normal. VASCULAR: Unremarkable. PELVIC VISCERA: The uterus and adnexa are within normal limits. OSSEOUS STRUCTURES: Severe disc height loss at L4-L5 with diffuse disc bulging. No acute fracture or destructive change. IMPRESSION: - Postoperative findings related to recent umbilical hernia repair without evidence of recurrent bowel containing hernia. Small amount of fluid and foci of air are present at the surgical site. No evidence of rim-enhancing collection. - Postoperative findings related to recent cholecystectomy. There is central intrahepatic biliary ductal dilatation and prominence of the common bile duct which are similar compared to prior. - No new inflammatory changes in the abdomen or pelvis. DICTATED BY: Kavya Couch MD DATE/TIME DICTATED:04/05/181838 INNER TUBE TUBER MACHINE OPERATOR:ANGEL DATE/TIME TRANSCRIBED:04/05/181838 CONFIDENTIAL, DO NOT COPY WITHOUT APPROPRIATE AUTHORIZATION. <Electronically signed in Other Vendor System> Initial ED EKG: normal sinus rhythm, FIRST DEGREE AV BLOCK (Stephen WADE,Kenneth) Departure Departure Disposition: HOME OR SELF CARE Condition: Stable Clinical Impression Primary Impression: Abdominal pain Qualifiers: Abdominal location: periumbilical Qualified Code: R10.33 - Periumbilical pain Referrals: Jeri Walton MD (PCP/Family) Additional Instructions: Continue to take Percocet as directed. Zofran for nausea. He also need to continue to take potassium once daily. She had this rechecked in a few days. Follow-up with Quirino Napier MD this week for recheck. Monitor symptoms and return with any concerns. Please go over all results of today's visit with your primary care doctor. Contact your primary care doctor to let them know you were here in the emergency room. There may be nonspecific findings which may not be related to your visit today here in the emergency room but may require further evaluation and chronic monitoring by your primary care doctor. If you had a laceration today the chance of foreign body always remains. You should follow-up with your primary care doctor for recheck in 3-5 days for a wound check. If you had an x-ray done there is a chance that a fracture could have been missed on initial read and you should follow-up with your primary care doctor for repeat x-rays if symptoms persist. If your blood pressure was elevated here in the emergency room please have rechecked by her primary care doctor within the next 48 hours by your primary care doctor. If you were prescribed a narcotic here in the emergency room or any type of controlled substances you're not allowed to drive while taking this medication or operate any type of heavy machinery. Narcotics can make you feel lightheaded dizziness nausea and can cause constipation. You may need to fruit picker machine operator a stool softener. Thank you for choosing [facility] emergency room. Please return to the emergency room immediately if you have any other concerns worsening of symptoms. Departure Forms: Customer Survey General Discharge Information Prescriptions: Current Visit Scripts Ondansetron (Zofran Odt) 1 TAB SL TID PRN NAUSEA #10 TAB Potassium Chloride (Klor-Con 10) 1 TAB PO DAILY #10 TAB (Kenneth Wright) PA/BIOINFORMATICS SUPPORT SPECIALIST Co-Sign Statement Statement: ED Attending supervision documentation- I saw and evaluated the patient. I have also reviewed all the pertinent lab results and diagnostic results. I agree with the findings and the plan of care as documented in the PA's/BIOINFORMATICS SUPPORT SPECIALIST's documentation. x I have reviewed the ED Record and agree with the PA's/BIOINFORMATICS SUPPORT SPECIALIST's documentation. [] Additions or exceptions (if any) to the PAs/BIOINFORMATICS SUPPORT SPECIALIST's note and plan are summarized below: [] (Jarrod PAULSON,Ramón)
--- NOTE | 2018-04-05 18:54 | CT SCAN REPORT ---
EXAMINATION: CT ABDOMEN AND PELVIS WITH CONTRAST CLINICAL INFORMATION: One day status post umbilical hernia repair. Abdominal pain with nausea and vomiting. COMPARISON: CT of the abdomen and pelvis 03/03/2018. TECHNIQUE: Multidetector volumetric imaging was performed of the abdomen and pelvis following IV administration of 95 mL of Optiray 320 intravenous contrast. Sagittal and coronal reformatted images were obtained on the technologist's workstation. DLP: 264 mGy-cm FINDINGS: LUNG BASES: Mild subsegmental atelectasis bilaterally. LIVER, GALLBLADDER, AND BILIARY TREE: There is a stable subcentimeter focus of hypoattenuation at the hepatic dome (series 2 image 13). There is unchanged mild central intrahepatic biliary ductal dilatation and prominence of the common bile duct measuring up to 10 mm. There are surgical clips in the gallbladder fossa. PANCREAS: Unremarkable. SPLEEN: Unremarkable. ADRENAL GLANDS: Unremarkable. KIDNEYS AND URETERS: The kidneys are normal in size, shape, and attenuation. No hydronephrosis, hydroureter, or calculi seen. No perinephric stranding. BLADDER: Unremarkable. GASTROINTESTINAL TRACT: The stomach appears normal. The small bowel is nondistended. The large bowel appears normal. There is no bowel obstruction. The appendix is normal. An appendicolith is noted at the appendiceal tip but there is no periappendiceal stranding or fluid. ABDOMINAL WALL: There are postoperative findings related to recent umbilical hernia repair. There is a small amount of fluid and small foci of air in the midline abdominal wall compatible with recent operative changes. There is no rim-enhancing collection. There is no bowel containing hernia. LYMPH NODES: Normal. VASCULAR: Unremarkable. PELVIC VISCERA: The uterus and adnexa are within normal limits. OSSEOUS STRUCTURES: Severe disc height loss at L4-L5 with diffuse disc bulging. No acute fracture or destructive change. IMPRESSION: - Postoperative findings related to recent umbilical hernia repair without evidence of recurrent bowel containing hernia. Small amount of fluid and foci of air are present at the surgical site. No evidence of rim-enhancing collection. - Postoperative findings related to recent cholecystectomy. There is central intrahepatic biliary ductal dilatation and prominence of the common bile duct which are similar compared to prior. - No new inflammatory changes in the abdomen or pelvis.
[2018-04-05] MEDS ORDERED: KLOR-CON 1010 ME1 PO (20:16)
[2018-04-05] MEDS ORDERED: ZOFRAN ODT4 M1 SL (20:16)
[2018-04-05 20:30] VITALS: BP 148/80
== END 2018-04-05 20:31 ==
LOC: ERH 16:36
PROVIDERS: Physician Assistant Medical
DX: R10.33 Periumbilical pain (principal)
CPT/HCPCS: 74177; 93005; 93010; 96374; 96375; J0131; J2405

== ENCOUNTER 2018-04-22 10:28 | Emergency (ER) | payer OTHER ==
[~2018-04-22] VITALS: Ht 157.5 cm; Wt 47.6 kg
[~2018-04-22 10:28] MED LIST changes: +DAILY VALUE1 EACH PO; +KLOR-CON 1010 ME1 PO; -MULTI-DAY VITA1 EACH PO; +ZOFRAN ODT4 M1 SL
--- NOTE | 2018-04-22 11:11 | ED MVC/FALL/TRAUMA COMPLAINT ---
History of Present Illness General Chief Complaint: Fall Stated Complaint: LEFT KNEE AND ABD PAIN, S/P FALL Source: patient, old records Exam Limitations: no limitations Vital Signs & Intake/Output Vital Signs & Intake/Output Vital Signs Date Time Temp Pulse Resp B/P B/P Pulse O2 O2 Flow FiO2 Mean Ox Delivery Rate 04/22 1315 69 20 134/83 95 Room Air 04/22 1036 97.8 89 20 124/88 94 Room Air Allergies Coded Allergies: venom-honey bee (bee venom (honey bee)) (Severe, ANAPHYLAXIS 04/03/18) ketorolac (From TORADOL) (ITCHING 04/03/18) Reconcile Medications Alprazolam (Xanax) 1 MG TABLET 1 MG PO BID ANXIETY Carisoprodol (SOMA) 350 MG TABLET 350 MG PO BID PAIN Famotidine (Pepcid) 20 MG TABLET 1 TAB PO BID gastritis Hyoscyamine Sulfate (Levsin-Sl) 0.125 MG TAB.SUBL 1-2 TAB SL Q4P PRN abdominal pain Ibuprofen 600 MG TABLET 1 TAB PO TID PRN pain with food Levothyroxine Sodium 50 MCG TABLET 1 TAB PO DAILY AC THYROID (Reported) Loperamide HCl (Imodium A-D) 2 MG TABLET 0 PO SEE ADMIN CRITERIA PRN diarrhea 1 tab after each loose stool up to 7 per day Methotrexate 2.5 MG TABLET 5 TAB PO QMON RA (Reported) Metoclopramide HCl (Reglan) 10 MG TABLET 1 TAB PO 4 TIMES/DAY PRN nausea, vomiting 30 minutes before meals and bedtime Multivitamin (Daily Value) 1 EACH TABLET 1 TAB PO DAILY VITAMIN SUPPORT ( Reported) Ondansetron (Zofran Odt) 4 MG TAB.RAPDIS 1 TAB SL TID PRN NAUSEA Oxycodone HCl/Acetaminophen (Percocet 5-325 MG Tablet) 5 MG-325 MG TABLET 1 TAB PO Q6P PRN pain Potassium Chloride (Klor-Con 10) 10 MEQ TABLET.ER 1 TAB PO DAILY HYPO K Quetiapine Fumarate (Seroquel) 50 MG TABLET 50 MG PO 0800,1300 CLEAR THOUGHTS Quetiapine Fumarate 100 MG TABLET 1 TAB PO AT BEDTIME SLEEP Triage Note: PT TO ED C/O LEFT KNEE PAIN S/P SLIP AND FALL YESTERDAY. DENIES HEADSTRIKE. ALSO STATES SHE FELL ONTO HER "SURGERY SITE" ON HER ABD. DECLINING MEDS IN TRIAGE. Triage Nurses Notes Reviewed? yes HPI: Patient states that yesterday she slipped on wet pavement and fell forward and landed on her left knee as well as her abdomen. Patient had a recent hernia repair. Patient is complaining of a throbbing pain to her left knee. The pain increases with any movement. The pain radiates down her mendez. The pain is 8 out of 10. The pain in her abdomen is sharp and constant. The pain is in the area of where the hernia repair was. There is no radiation. She rates the pain at 7 out of 10. Patient denies any nausea or vomiting. Patient denies any headache. There is no loss consciousness. Patient denies any headache. There is no neck pain or neck stiffness. Past History Travel History Traveled to [place] past 21 day No Medical History Any Pertinent Medical History? 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 No Review of Systems Review of Systems Constitutional: Reports: no symptoms. Eyes: Reports: no symptoms. Ears, Nose, Throat, Mouth: Reports: no symptoms. Respiratory: Reports: no symptoms. Cardiovascular: Reports: no symptoms. Gastrointestinal/Abdominal: Reports: see HPI, abdominal pain. Genitourinary: Reports: no symptoms. Musculoskeletal: Reports: see HPI, joint pain. Skin: Reports: no symptoms. Neurological/Psychological: Reports: no symptoms. All Other Systems: Reviewed and Negative Physical Exam Physical Exam General Appearance: well developed/nourished, alert, awake, mild distress Head: atraumatic, normal appearance Eyes: Bilateral: PERRL, EOMI. Ears, Nose, Throat, Mouth: hearing grossly normal, moist mucous membrane Neck: normal inspection, supple, full range of motion, normal alignment, no midline tenderness Respiratory: normal breath sounds, chest non-tender, no respiratory distress, lungs clear Cardiovascular: regular rate/rhythm, normal peripheral pulses Gastrointestinal: normal bowel sounds, soft, non-tender, no organomegaly Back: normal inspection, normal range of motion Extremities: normal range of motion, pelvis stable, SOFT TISSUE TENDERNESS TO LEFTKNEE Neurologic/Psych: no motor/sensory deficits, awake, alert, oriented x 3, normal mood/affect Skin: intact, normal color, warm/dry Core Measures ACS in differential dx? No CVA/TIA Diagnosis No Sepsis Present: No Sepsis Focused Exam Completed? No Progress Differential Diagnosis: abd injury, ext injury Plan of Care: Orders Procedure Date/time Status LIPASE 04/22 1111 Complete COMPREHENSIVE METABOLIC PANEL 04/22 1111 Complete CBC WITHOUT DIFFERENTIAL 04/22 1111 Complete AMYLASE 04/22 1111 Complete Laboratory Tests 04/22/18 1122: Anion Gap 8, Estimated GFR > 60, BUN/Creatinine Ratio 24.3, Glucose 84, Calcium 8.6, Total Bilirubin 0.3, AST 18, ALT 19, Alkaline Phosphatase 82, Total Protein 6.2 L, Albumin 3.5, Globulin 2.7, Albumin/Globulin Ratio 1.3, Amylase 71, Lipase 23, CBC w Diff NO MAN DIFF REQ, RBC 3.71 L, MCV 93.7, MCH 32.2 H, MCHC 34.3, RDW 14.8 H, MPV 7.7, Gran % 62.4, Lymphocytes % 24.9, Monocytes % 9.9 H, Eosinophils % 2.4, Basophils % 0.4, Absolute Granulocytes 3.0, Absolute Lymphocytes 1.2, Absolute Monocytes 0.5, Absolute Eosinophils 0.1, Absolute Basophils 0 Diagnostic Imaging: Viewed by Me: Radiology Read, CT Scan. Discussed w/RAD: Radiology Read, CT Scan. Radiology Impression: PATIENT: DOUG MCKEON PRESENT AGE: 58 PATIENT ACCOUNT NO: [id number] : 60 LOCATION: [facility] ORDERING PHYSICIAN: Mahendra Sifuentes MD SERVICE DATE: 04/22/18-1220 EXAM TYPE: CAT - CT ABD & PELVIS W IV CONTRAST EXAMINATION: CT ABDOMEN AND PELVIS WITH CONTRAST CLINICAL INFORMATION: Trauma. COMPARISON: CT of the abdomen and pelvis from 10/2018. CT enterography from 04/16/2018. TECHNIQUE: Multidetector volumetric imaging was performed of the abdomen and pelvis following IV administration of 95 mL of Optiray 320 intravenous contrast. Sagittal and coronal reformatted images were obtained on the technologist's workstation. DLP: 224 mGy-cm FINDINGS : LUNG BASES: There are platelike opacities at the lung bases, suggesting atelectasis. The imaged heart and pericardium appear unremarkable. LIVER, GALLBLADDER, AND BILIARY TREE: There is a stable hypoattenuating focus at the liver dome with a central calcification measuring 6 mm. Otherwise no hepatic parenchymal abnormalities. Attenuation within the liver and the liver contour is maintained. There is mild intrahepatic ductal dilatation, stable. There is mild extrahepatic biliary ductal dilatation which tapers at the level of the ampulla, stable. There has been cholecystectomy. There is no ascites or significant fat stranding in the right upper quadrant. PANCREAS: Unremarkable. SPLEEN: Unremarkable. ADRENAL GLANDS: Unremarkable. KIDNEYS AND URETERS: The kidneys are normal in size, shape, and attenuation. No hydronephrosis, hydroureter, or calculi seen. No perinephric stranding. BLADDER: Unremarkable. GASTROINTESTINAL TRACT: There are a few colonic diverticula without evidence of diverticulitis. Contrast is reached the splenic flexure. The cecum occupies a midline location, which is demonstrated mobility in the interval since the prior. Given differences in configuration of the cecum relative to the prior study, it is difficult to visualize the appendix currently, no inflammatory change surrounding the cecum is evident. Loops of small bowel appear normal in caliber. ABDOMINAL WALL: There is slight improvement in the fluid with surrounding fat stranding in the supraumbilical abdominal wall relative to the prior study. Previously noted foci of air have resolved. This area measures approximately 1.3 x 1.1 cm axially. LYMPH NODES: No adenopathy. VASCULAR: Unremarkable. PELVIC VISCERA: Unremarkable. OSSEOUS STRUCTURES: There are 5 nonrib-bearing lumbar type vertebral bodies. Vertebral body height is maintained. No evidence of spondylolyses. Mild spondylosis probably most notable at L4-L5. No acute osseous abnormalities. IMPRESSION: 1. There is stable mild intra and extrahepatic biliary ductal dilatation with tapering at the ampulla. A partially obstructing lesion at the ampullary level is not excluded and correlation with laboratory testing is suggested. 2. Status post cholecystectomy. 3. Status post ventral hernia repair. A fluid collection in the anterior abdominal wall, supraumbilical region is slightly smaller than on the recent prior studies. 4. Few colonic diverticula without diverticulitis. 5. No evidence of acute traumatic injury within the abdomen or pelvis. DICTATED BY: Walker Noble MD DATE/TIME DICTATED: 04/22/181337 ELECTRONIC ORGAN TECHNICIAN:ANGEL DATE/TIME TRANSCRIBED:04/22/181337 CONFIDENTIAL, DO NOT COPY WITHOUT APPROPRIATE AUTHORIZATION. <Electronically signed in Other Vendor System> SIGNED BY: Walker Noble MD 04/22/18 1351, PATIENT: DOUG MCKEON PRESENT AGE: 58 PATIENT ACCOUNT NO: [id number] : 60 LOCATION: [facility] ORDERING PHYSICIAN: Mahendra Sifuentes MD SERVICE DATE: 04/22/18 EXAM TYPE: RAD - XRY-KNEE COMPLETE LEFT EXAMINATION: XR KNEE, LEFT CLINICAL INFORMATION: Fall, pain. COMPARISON: TECHNIQUE: Four views of the left knee. FINDINGS: There is no evidence of fracture, dislocation, or knee joint effusion. The joint spaces appear maintained. No acute soft tissue abnormalities are visualized. IMPRESSION: No evidence of fracture, dislocation, or knee joint effusion. DICTATED BY: Walker Noble MD DATE/TIME DICTATED:04/22/181228 ELECTRONIC ORGAN TECHNICIAN:ANGEL DATE/TIME TRANSCRIBED:04/22/181228 CONFIDENTIAL, DO NOT COPY WITHOUT APPROPRIATE AUTHORIZATION. <Electronically signed in Other Vendor System> SIGNED BY: Walker Noble MD 04/22/18 1234 Departure Departure Disposition: HOME OR SELF CARE Condition: Stable Clinical Impression Primary Impression: Abdominal pain, unspecified site Secondary Impressions: Knee contusion Referrals: Jeri Walton MD (PCP/Family) Additional Instructions: RETUNR IF SYMPTOMS WORSENOR FOR ANYCONCERNS Departure Forms: Customer Survey General Discharge Information Prescriptions: Current Visit Scripts Oxycodone HCl/Acetaminophen (Percocet 5-325 MG Tablet) 1-2 TAB PO Q6P PRN PAIN #10 TAB
[2018-04-22 11:28] LABS: ABSOLUTE BASOPHIL COUNT 0 /CUMM (0.0-0.2); ABSOLUTE EOSINOPHIL COUNT 0.1 /CUMM (0.0-0.7); ABSOLUTE LYMPH COUNT 1.2 /CUMM (1.2-3.4); ABSOLUTE MONOCYTE COUNT 0.5 /CUMM (0.10-0.60); BASOPHIL % 0.4 % (0.0-2.0); EOSINOPHIL % 2.4 % (0-5); GRANULOCYTE % 62.4 % (42.2-75.2); HEMATOCRIT 34.8 % (37-47); MEAN CORPUSCULAR HGB 32.2 PG (27.0-31.0); MEAN CORPUSCULAR HGB CONC 34.3 G/DL (33.0-37.0); MEAN CORPUSCULAR VOLUME 93.7 FL (81.0-99.0); MEAN PLATELET VOLUME 7.7 FL (7.4-10.4); PLATELET COUNT 271 /CUMM (130-400); RBC DISTRIBUTION WIDTH 14.8 % (11.5-14.5); RED BLOOD CELL CT 3.71 /CUMM (4.20-5.40); WHITE BLOOD CELL COUNT 4.8 /CUMM (4.8-10.8)
--- NOTE | 2018-04-22 12:34 | RADIOLOGY REPORT ---
EXAMINATION: XR KNEE, LEFT CLINICAL INFORMATION: Fall, pain. COMPARISON: 01/17/2009 TECHNIQUE: Four views of the left knee. FINDINGS: There is no evidence of fracture, dislocation, or knee joint effusion. The joint spaces appear maintained. No acute soft tissue abnormalities are visualized. IMPRESSION: No evidence of fracture, dislocation, or knee joint effusion.
[2018-04-22 13:15] VITALS: BP 134/83
--- NOTE | 2018-04-22 13:51 | CT SCAN REPORT ---
EXAMINATION: CT ABDOMEN AND PELVIS WITH CONTRAST CLINICAL INFORMATION: Trauma. COMPARISON: CT of the abdomen and pelvis from 04/05/2018. CT enterography from 04/16/2018. TECHNIQUE: Multidetector volumetric imaging was performed of the abdomen and pelvis following IV administration of 95 mL of Optiray 320 intravenous contrast. Sagittal and coronal reformatted images were obtained on the technologist's workstation. DLP: 224 mGy-cm FINDINGS: LUNG BASES: There are platelike opacities at the lung bases, suggesting atelectasis. The imaged heart and pericardium appear unremarkable. LIVER, GALLBLADDER, AND BILIARY TREE: There is a stable hypoattenuating focus at the liver dome with a central calcification measuring 6 mm. Otherwise no hepatic parenchymal abnormalities. Attenuation within the liver and the liver contour is maintained. There is mild intrahepatic ductal dilatation, stable. There is mild extrahepatic biliary ductal dilatation which tapers at the level of the ampulla, stable. There has been cholecystectomy. There is no ascites or significant fat stranding in the right upper quadrant. PANCREAS: Unremarkable. SPLEEN: Unremarkable. ADRENAL GLANDS: Unremarkable. KIDNEYS AND URETERS: The kidneys are normal in size, shape, and attenuation. No hydronephrosis, hydroureter, or calculi seen. No perinephric stranding. BLADDER: Unremarkable. GASTROINTESTINAL TRACT: There are a few colonic diverticula without evidence of diverticulitis. Contrast is reached the splenic flexure. The cecum occupies a midline location, which is demonstrated mobility in the interval since the prior. Given differences in configuration of the cecum relative to the prior study, it is difficult to visualize the appendix currently, no inflammatory change surrounding the cecum is evident. Loops of small bowel appear normal in caliber. ABDOMINAL WALL: There is slight improvement in the fluid with surrounding fat stranding in the supraumbilical abdominal wall relative to the prior study. Previously noted foci of air have resolved. This area measures approximately 1.3 x 1.1 cm axially. LYMPH NODES: No adenopathy. VASCULAR: Unremarkable. PELVIC VISCERA: Unremarkable. OSSEOUS STRUCTURES: There are 5 nonrib-bearing lumbar type vertebral bodies. Vertebral body height is maintained. No evidence of spondylolyses. Mild spondylosis probably most notable at L4-L5. No acute osseous abnormalities. IMPRESSION: 1. There is stable mild intra and extrahepatic biliary ductal dilatation with tapering at the ampulla. A partially obstructing lesion at the ampullary level is not excluded and correlation with laboratory testing is suggested. 2. Status post cholecystectomy. 3. Status post ventral hernia repair. A fluid collection in the anterior abdominal wall, supraumbilical region is slightly smaller than on the recent prior studies. 4. Few colonic diverticula without diverticulitis. 5. No evidence of acute traumatic injury within the abdomen or pelvis.
[2018-04-22] MEDS ORDERED: PERCOCET 5-3251 EACH PO (14:40)
== END 2018-04-22 14:57 ==
LOC: ERH 10:28
PROVIDERS: Emergency Medicine
DX: S80.02XA Contusion of left knee, initial encounter (principal); R10.9 Unspecified abdominal pain; W01.0XXA Fall on same level from slipping, tripping and stumbling without subsequent striking against object, initial encounter; Y93.01 Activity, walking, marching and hiking
CPT/HCPCS: 73562-LT; 74177; 96374; J0131

== ENCOUNTER 2018-04-30 15:46 | Emergency (ER) | payer OTHER ==
[~2018-04-30] VITALS: Ht 157.5 cm; Wt 47.6 kg
--- NOTE | 2018-04-30 16:23 | ED UPPER/LOWER EXTREMITY COMPL ---
History of Present Illness General Chief Complaint: Lower Extremity Problems Stated Complaint: PT LEFT KNEE HAS PAIN Source: patient, old records Exam Limitations: no limitations Vital Signs & Intake/Output Vital Signs & Intake/Output ED Intake and Output 05/01 0000 04/30 1200 Intake Total 0 Output Total Balance 0 Intake, Oral 0 Patient 105 lb Weight Weight Reported by Patient Measurement Method Allergies Coded Allergies: venom-honey bee (bee venom (honey bee)) (Severe, ANAPHYLAXIS 04/30/18) ketorolac (From TORADOL) (ITCHING 04/30/18) Reconcile Medications Alprazolam (Xanax) 1 MG TABLET 1 MG PO BID ANXIETY Carisoprodol (SOMA) 350 MG TABLET 350 MG PO BID PAIN Famotidine (Pepcid) 20 MG TABLET 1 TAB PO BID gastritis Hyoscyamine Sulfate (Levsin-Sl) 0.125 MG TAB.SUBL 1-2 TAB SL Q4P PRN abdominal pain Ibuprofen 600 MG TABLET 1 TAB PO TID PRN pain with food Levothyroxine Sodium 50 MCG TABLET 1 TAB PO DAILY AC THYROID (Reported) Loperamide HCl (Imodium A-D) 2 MG TABLET 0 PO SEE ADMIN CRITERIA PRN diarrhea 1 tab after each loose stool up to 7 per day Methotrexate 2.5 MG TABLET 5 TAB PO QMON RA (Reported) Metoclopramide HCl (Reglan) 10 MG TABLET 1 TAB PO 4 TIMES/DAY PRN nausea, vomiting 30 minutes before meals and bedtime Multivitamin (Daily Value) 1 EACH TABLET 1 TAB PO DAILY VITAMIN SUPPORT ( Reported) Ondansetron (Zofran Odt) 4 MG TAB.RAPDIS 1 TAB SL TID PRN NAUSEA Oxycodone HCl/Acetaminophen (Percocet 5-325 MG Tablet) 5 MG-325 MG TABLET 1-2 TAB PO Q6P PRN PAIN Oxycodone HCl/Acetaminophen (Percocet 5-325 MG Tablet) 5 MG-325 MG TABLET 1 TAB PO BID PRN pain Oxycodone HCl/Acetaminophen (Percocet 5-325 MG Tablet) 5 MG-325 MG TABLET 1 TAB PO Q6P PRN pain Potassium Chloride (Klor-Con 10) 10 MEQ TABLET.ER 1 TAB PO DAILY HYPO K Quetiapine Fumarate (Seroquel) 50 MG TABLET 50 MG PO 0800,1300 CLEAR THOUGHTS Quetiapine Fumarate 100 MG TABLET 1 TAB PO AT BEDTIME SLEEP Triage Note: PT TO ED FOR C/C OF L KNEE PAIN. PT FELL TWO WEEKS AGO AND HAS HAD PAIN SINCE. AMBULATORY IN TRIAGE. HAS TRIED TYLENOL AND MOTRIN WITHOUT RELIEF. Triage Nurses Notes Reviewed? yes Onset: Gradual Duration: week(s): Timing: recent history Severity: moderate Pain/Injury Location: Left: Knee. Method of Injury: fall Modifying Factors: Worsens With: movement. HPI: 58yo female presents emergency department complaining of persistent left knee pain after a fall 2 weeks ago. Patient states that she she mechanical fall 2 weeks ago, was seen and evaluated here in the emergency department, had negative x-rays of her left knee that time. Patient states that she has had persistent pain, bruising, swelling to left knee. She was seen in a walk-in week however no x-rays were obtained at that time. Patient states she tried to get in to see an orthopedic doctor however states the number she called would not accept her insurance. The patient denies numbness, tingling. (Chasidy Guajardo) Past History Travel History Traveled to [place] past 21 day No Medical History Any Pertinent Medical History? 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 No (Chasidy Guajardo) Review of Systems Review of Systems Constitutional: Reports: no symptoms. EENTM: Reports: no symptoms. Respiratory: Reports: no symptoms. Cardiovascular: Reports: no symptoms. Gastrointestinal/Abdominal: Reports: no symptoms. Genitourinary: Reports: no symptoms. Musculoskeletal: Reports: see HPI. Skin: Reports: see HPI. Neurological/Psychological: Reports: no symptoms. Hematologic/Endocrine: Reports: no symptoms. Immunological: Reports: no symptoms. All Other Systems: Reviewed and Negative (Germaine WADE,Chasidy Hillman) Physical Exam Physical Exam General Appearance: well developed/nourished, no apparent distress, alert, awake Head: atraumatic, normal appearance Eyes: Bilateral: normal appearance. Ears, Nose, Throat: hearing grossly normal Neck: normal inspection, supple, full range of motion Cardiovascular/Respiratory: no respiratory distress Peripheral Pulses: 2+ dorsalis pedis (L) Back: normal inspection, normal range of motion Leg Left: normal range of motion, normal inspection Leg Right: normal range of motion, normal inspection Hip Left: normal range of motion, normal inspection Hip Right: normal range of motion, normal inspection Knee Left: ECCHYMOSIS, MILD SWELLING, AND TENDERNESS TO LEFT ANTERIOR KNEE Knee Right: normal range of motion, normal inspection Foot Left: normal inspection, normal range of motion Foot Right: normal inspection, normal range of motion Neurologic/Tendon: normal sensation, normal motor functions, normal tendon functions Skin: ecchymosis (Germaine WADE,Chasidy Hillman) Progress Differential Diagnosis: contusion, DVT, fracture, sprain, tendon injury Plan of Care: Orders Procedure Date/time Status XRY-KNEE COMPLETE LEFT 04/30 1623 Active Repeat x-ray shows no acute fracture. Patient informed she may have sprain or ligament injury relating to her fall. She recommended she follow up with the orthopedics given [facility]. She was given contact information to make an appointment with orthopedics through [facility]. She has intact distal pulses, is neurovascularly intact. Patient is able to ambulate without difficulty leaving the emergency department. The patient agrees with the plan of care. Diagnostic Imaging: Viewed by Me: Radiology Read. Discussed w/RAD: Radiology Read. Radiology Impression: PATIENT: DOUG MCKEON PRESENT AGE: 58 PATIENT ACCOUNT NO: [id number] : 60 LOCATION: [facility] ORDERING PHYSICIAN: Chasidy WADE SERVICE DATE: 04/30/18 EXAM TYPE: RAD - XRY-KNEE COMPLETE LEFT EXAMINATION: LEFT KNEE 3 VIEWS CLINICAL INFORMATION: Pain after fall. COMPARISON: 04/22/2018. TECHNIQUE: AP, lateral, oblique views of the left knee were obtained. FINDINGS: There are no fractures or dislocations. There is no knee joint effusion. There is no significant soft tissue swelling. IMPRESSION: Unremarkable left knee radiographs. DICTATED BY: Lester Jacinto MD DATE/TIME DICTATED:04/30/181640 E COMMERCE STRATEGIST:ANGEL DATE/TIME TRANSCRIBED:04/30/181640 CONFIDENTIAL, DO NOT COPY WITHOUT APPROPRIATE AUTHORIZATION. <Electronically signed in Other Vendor System> SIGNED BY: Lester Jacinto MD 04/30/181645 (Germaine WADE,Chasidy Hillman) Departure Departure Disposition: HOME OR SELF CARE Condition: Stable Clinical Impression Primary Impression: Left knee pain Qualifiers: Chronicity: acute Qualified Code: M25.562 - Pain in left knee Referrals: Jeri Walton MD (PCP/Family) Additional Instructions: Take percocet as prescribed for pain. Follow up with personal loan specialist. Purchase soft knee brace to help with stability. Return with worsening symptoms or concerns. [id number] Do[facility] reviews Orthopedic clinic in [place], [place] Located in: [facility] Address: [address] [place] [address] [place] [address] Hours: Closed Opens 7AM Katerine Please note that there might be incidental findings in your evaluation that are unrelated to the current emergency department visit. Please notify your primary care doctor about this emergency department visit in order to obtain and review all of the testing performed so that these incidental findings can be monitored as needed. If you had an x-ray performed, please understand that some fractures may not be seen on the initial set of x-rays. If your symptoms persist you might need a repeat set of x-rays to check for such a fracture. If you had a laceration evaluated, please understand that foreign bodies such as glass or wood may not be visible to the naked eye or on plain x-rays. If the wound becomes red, swollen, increasingly more painful or if there is any drainage from the wound, please have it reevaluated by a physician for the possibility of a retained foreign body. If you're unable to follow up as outlined in the discharge instructions please return to the emergency department. Thank you for choosing the [facility] Emergency Department for your care. It was a pleasure to serve you today. Departure Forms: Customer Survey General Discharge Information Prescriptions: Current Visit Scripts Oxycodone HCl/Acetaminophen (Percocet 5-325 MG Tablet) 1 TAB PO BID PRN pain #10 TAB (Germaine WADE,Chasidy Hillman) PA/PRINT SHOP CHIEF CLERK Co-Sign Statement Statement: ED Attending supervision documentation- I saw and evaluated the patient. I have also reviewed all the pertinent lab results and diagnostic results. I agree with the findings and the plan of care as documented in the PA's/PRINT SHOP CHIEF CLERK's documentation. x I have reviewed the ED Record and agree with the PA's/PRINT SHOP CHIEF CLERK's documentation. [] Additions or exceptions (if any) to the PAs/PRINT SHOP CHIEF CLERK's note and plan are summarized below: [] (Jarrod PAULSON,Ramón)
--- NOTE | 2018-04-30 16:46 | RADIOLOGY REPORT ---
EXAMINATION: LEFT KNEE 3 VIEWS CLINICAL INFORMATION: Pain after fall. COMPARISON: 04/22/2018. TECHNIQUE: AP, lateral, oblique views of the left knee were obtained. FINDINGS: There are no fractures or dislocations. There is no knee joint effusion. There is no significant soft tissue swelling. IMPRESSION: Unremarkable left knee radiographs.
[2018-04-30 17:38] VITALS: BP 124/62
[2018-04-30] MEDS ORDERED: PERCOCET 5-3251 EACH PO (17:39)
== END 2018-04-30 17:43 ==
LOC: ERH 15:46
DX: M25.562 Pain in left knee (principal)
CPT/HCPCS: 73562-LT

== ENCOUNTER 2018-05-31 10:06 | Emergency (ER) | payer OTHER ==
[~2018-05-31] VITALS: Ht 152.4 cm; Wt 47.6 kg
[~2018-05-31 10:06] MED LIST changes: +ACETAMINOPHEN500 M4 PO; +ADVIL200 M1 PO; +DICYCLOMINE HCL20 M1 PO
--- NOTE | 2018-05-31 11:14 | ED GI/GU/ABDOMINAL COMPLAINT ---
History of Present Illness General Chief Complaint: Abdominal Pain/Flank Pain Stated Complaint: ABD PAIN Source: patient, old records Exam Limitations: no limitations Vital Signs & Intake/Output Vital Signs & Intake/Output Vital Signs Date Time Temp Pulse Resp B/P B/P Pulse O2 O2 Flow FiO2 Mean Ox Delivery Rate 05/31 1133 97.0 80 20 110/70 96 Room Air 05/31 1013 97.0 76 20 104/69 94 Room Air Allergies Coded Allergies: venom-honey bee (bee venom (honey bee)) (Severe, ANAPHYLAXIS 04/30/18) ketorolac (From TORADOL) (ITCHING 04/30/18) Reconcile Medications Acetaminophen 500 MG TABLET 4 TAB PO PRN PAIN (Reported) Alprazolam (Xanax) 1 MG TABLET 1 MG PO BID ANXIETY Diphenoxylate HCl/Atropine (Lomotil 2.5-0.025 MG Tablet) 2.5 MG-0.025 MG TABLET 1 TAB PO 4 TIMES/DAY PRN diarrhea Hyoscyamine Sulfate (Levsin-Sl) 0.125 MG TAB.SUBL 1-2 TAB SL Q4P PRN abd pain Ibuprofen (Advil) 200 MG CAPSULE 4 CAP PO PRN PAIN/INFLAMMATION (Reported) Levothyroxine Sodium 50 MCG TABLET 1 TAB PO DAILY AC THYROID (Reported) Ondansetron (Zofran Odt) 4 MG TAB.RAPDIS 1 TAB SL TID PRN n/v Pantoprazole Sodium (Protonix) 40 MG TABLET. 1 TAB PO DAILY gastritis Triage Note: PT C/O ABDOMINAL PAIN WITH N/V. STATES SHE HAD HER GALLBLADDER OUT 3 MONTHS AGO AND THIS HAS BEEN GOING ON SINCE. DR MONTERO DID THE SURGERY. STATES SHE WAS SEEN HERE FOR SAME 2 DAYS AGO AND NOBODY DID ANYTHING FOR HER Triage Nurses Notes Reviewed? yes LMP (ages 10-50): post menopausal ? n Is pt currently ? No Onset: Last week Duration: day(s):, intermittent Timing: recent history Quality/Severity: aching, cramping, moderate, vomiting Location: periumbilical Radiation: epigastric Activities at Onset: rest Prior Abdominal Problems: similar symptoms Past Sexual History: Unobtainable at this time Modifying Factors: Worsens With: eating. Associated Symptoms: abdominal pain, loss of appetite, nausea/vomiting HPI: 5 days prior to admission patient complains of recurrent nausea vomiting loose watery stools periumbilical abdominal discomfort with associated anorexia and fatigue. She was seen and evaluated 2 days prior to admission. She denies fever chills chest pain cough shortness of breath headache dysuria rash bleeding. Past History Travel History Traveled to [place] past 21 day No Medical History Any Pertinent Medical History? 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 No Review of Systems Review of Systems Constitutional: Reports: no symptoms. EENTM: Reports: no symptoms. Respiratory: Reports: no symptoms. Cardiovascular: Reports: no symptoms. GI: Reports: see HPI, abdominal pain, diarrhea, nausea, vomiting. Genitourinary: Reports: no symptoms. Musculoskeletal: Reports: no symptoms. Skin: Reports: no symptoms. Neurological/Psychological: Reports: no symptoms. Hematologic/Endocrine: Reports: no symptoms. Immunologic/Allergic: Reports: no symptoms. All Other Systems: Reviewed and Negative Physical Exam Physical Exam General Appearance: well developed/nourished, alert, awake, anxious, mild distress, thin Head: atraumatic, normal appearance Eyes: Bilateral: normal appearance, PERRL, EOMI, normal inspection. Ears, Nose, Throat, Mouth: hearing grossly normal, moist mucous membrane Neck: normal inspection, supple, full range of motion, normal alignment Respiratory: normal breath sounds, chest non-tender, no respiratory distress, quiet respiration, lungs clear Cardiovascular: regular rate/rhythm, normal peripheral pulses, norml femoral pulses equa Peripheral Pulses: 4+ carotid (R), 4+ carotid (L) Gastrointestinal: normal bowel sounds, soft, non-tender, no organomegaly Back: normal inspection, normal range of motion, no vertebral tenderness Extremities: normal range of motion, no ligament instability Neurologic/Psych: no motor/sensory deficits, awake, alert, oriented x 3, normal gait, normal mood/affect, 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 No Sepsis Present: No Sepsis Focused Exam Completed? No Progress Differential Diagnosis: gastritis Plan of Care: Current Medications Sig/Catarino Start time Last Medication Dose Stop Time Status Admin Diphenoxylate HCl/ 2.5 MG ONCE ONE 05/31 1115 UNVr Atropine 05/31 1116 (Lomotil) Initial ED EKG: none Departure Departure Time of Disposition: 1111 Disposition: HOME OR SELF CARE Condition: Stable Clinical Impression Primary Impression: Nausea vomiting and diarrhea Secondary Impressions: Gastritis determined by biopsy Referrals: Isabelle PAULSON,Jeri (PCP/Family) Elo PAULSON,Denis Buchanan Departure Forms: Customer Survey General Discharge Information Prescriptions: Current Visit Scripts Pantoprazole Sodium (Protonix) 1 TAB PO DAILY #30 TAB Ondansetron (Zofran Odt) 1 TAB SL TID PRN n/v #10 TAB Diphenoxylate HCl/Atropine (Lomotil 2.5-0.025 MG Tablet) 1 TAB PO 4 TIMES/DAY PRN diarrhea #20 TAB Hyoscyamine Sulfate (Levsin-Sl) 1-2 TAB SL Q4P PRN abd pain #30 TAB
[2018-05-31] MEDS ORDERED: ZOFRAN ODT4 M1 SL (11:17)
[2018-05-31] MEDS ORDERED: LOMOTIL 2.5-0.1 EACH PO (11:17)
[2018-05-31] MEDS ORDERED: LEVSIN-SL0.125 MG SL (11:17)
[2018-05-31] MEDS ORDERED: PROTONIX40 M3 PO (11:17)
[2018-05-31 11:33] VITALS: BP 110/70
== END 2018-05-31 11:33 ==
LOC: ERH 10:06
DX: K29.70 Gastritis, unspecified, without bleeding (principal); R11.2 Nausea with vomiting, unspecified; R19.7 Diarrhea, unspecified
CPT/HCPCS: J3101

== ENCOUNTER 2018-06-15 02:05 | Emergency (ER) | payer OTHER ==
[~2018-06-15 02:05] MED LIST changes: +LOMOTIL 2.5-0.1 EACH PO; +MEDROL4 M2 PO; +PROMETHAZINE HC25 M3 PO; +ZEBUTAL 50-3251 EACH PO
--- NOTE | 2018-06-15 02:50 | ED GI/GU/ABDOMINAL COMPLAINT ---
History of Present Illness General Chief Complaint: Nausea, Vomiting, Diarrhea Stated Complaint: BIBA CP,DIARRHEA Source: patient, old records, EMS Exam Limitations: no limitations Vital Signs & Intake/Output Vital Signs & Intake/Output Vital Signs Date Time Temp Pulse Resp B/P B/P Pulse O2 O2 Flow FiO2 Mean Ox Delivery Rate 06/15 0210 97.7 72 18 155/87 98 Room Air Allergies Coded Allergies: venom-honey bee (bee venom (honey bee)) (Severe, ANAPHYLAXIS 04/30/18) ketorolac (From TORADOL) (ITCHING 04/30/18) Reconcile Medications Acetaminophen 500 MG TABLET 4 TAB PO PRN PAIN (Reported) Alprazolam (Xanax) 1 MG TABLET 1 MG PO BID ANXIETY Butalb/Acetaminophen/Caffeine (Zebutal 50-325-40 MG Capsule) 50 MG-325 MG-40 MG CAPSULE 1 TAB PO TID PRN MIGRAINE Diphenoxylate HCl/Atropine (Lomotil 2.5-0.025 MG Tablet) 2.5 MG-0.025 MG TABLET 1 TAB PO 4 TIMES/DAY PRN diarrhea Diphenoxylate HCl/Atropine (Lomotil 2.5-0.025 MG Tablet) 2.5 MG-0.025 MG TABLET 1 TAB PO 4 TIMES/DAY PRN diarrhea Hyoscyamine Sulfate (Levsin-Sl) 0.125 MG TAB.SUBL 1-2 TAB SL Q4P PRN abd pain Ibuprofen (Advil) 200 MG CAPSULE 4 CAP PO PRN PAIN/INFLAMMATION (Reported) Levothyroxine Sodium 50 MCG TABLET 1 TAB PO DAILY AC THYROID (Reported) Methylprednisolone. (Medrol) 4 MG TAB.DS.PK 1 DP PO AD INFLAMMATION 6 on day 1 then reduce by one tablet daily until gone Metoclopramide HCl (Reglan) 10 MG TABLET 1 TAB PO 4 TIMES/DAY PRN nausea 30 minutes before meals and bedtime Ondansetron (Zofran Odt) 4 MG TAB.RAPDIS 1 TAB SL TID PRN n/v Pantoprazole Sodium (Protonix) 40 MG TABLET.DR 1 TAB PO DAILY gastritis Promethazine HCl 25 MG TABLET 1 TAB PO TID PRN MIGRAINE Triage Note: PT BIBA FROM HOME WITH C/O DIARRHEA AND HEADACHE X2 DAYS, AND CP THAT STARTED THIS AM. STATES CP IS INTERMITTENT MIDSTERNAL THAT RADIATES TO L ARM, DENIES ANY AT PRESENT. WAS HERE 3 DAYS AGO FOR HEADACHE AND SENT HOME ON [place]ORICET WHICH DID NOT HELP. Triage Nurses Notes Reviewed? yes LMP (ages 10-50): post menopausal ? n Is pt currently ? No Onset: Last week Duration: day(s):, constant, continues in ED Timing: recent history Quality/Severity: aching, moderate Location: epigastric Radiation: no radiation Activities at Onset: rest Prior Abdominal Problems: similar symptoms Past Sexual History: Unobtainable at this time Modifying Factors: Worsens With: eating. Associated Symptoms: abdominal pain, diarrhea, loss of appetite, nausea/vomiting HPI: 4 days prior to admission patient complains of generalized abdominal discomfort anorexia nausea frequent loose watery stool. 3 days prior to admission the patient presented to the ED for a headache. The headache persists along with her GI symptoms. She denies fever chills vomiting chest pain cough shortness of breath rash bleeding. Past History Travel History Traveled to [place] past 21 day No Medical History Any Pertinent Medical History? 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 No Review of Systems Review of Systems Constitutional: Reports: see HPI, malaise. EENTM: Reports: no symptoms. Respiratory: Reports: no symptoms. Cardiovascular: Reports: no symptoms. GI: Reports: see HPI, abdominal pain, diarrhea, nausea. Genitourinary: Reports: no symptoms. Musculoskeletal: Reports: no symptoms. Skin: Reports: no symptoms. Neurological/Psychological: Reports: see HPI, headache. Hematologic/Endocrine: Reports: no symptoms. Immunologic/Allergic: Reports: no symptoms. All Other Systems: Reviewed and Negative Physical Exam Physical Exam General Appearance: well developed/nourished, alert, awake, anxious, thin Head: atraumatic, normal appearance Eyes: Bilateral: normal appearance, PERRL, EOMI. Ears, Nose, Throat, Mouth: hearing grossly normal, dry mucous membranes Neck: normal inspection, supple, full range of motion, normal alignment Respiratory: normal breath sounds, chest non-tender, no respiratory distress, quiet respiration, lungs clear Cardiovascular: regular rate/rhythm, normal peripheral pulses, norml femoral pulses equa Peripheral Pulses: 4+ carotid (R), 4+ carotid (L) Gastrointestinal: normal bowel sounds, soft, non-tender, no organomegaly Back: normal inspection, normal range of motion, no vertebral tenderness Extremities: normal range of motion, no ligament instability Neurologic/Psych: no motor/sensory deficits, awake, alert, oriented x 3, normal gait, normal mood/affect, 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 No Sepsis Present: No Sepsis Focused Exam Completed? No Progress Differential Diagnosis: gastritis, pancreatitis, PUD/GERD Plan of Care: Orders Procedure Date/time Status LIPASE 06/15 0246 Complete COMPREHENSIVE METABOLIC PANEL 06/15 0246 Complete CBC WITHOUT DIFFERENTIAL 06/15 246 Complete EKG 06/15 0209 Active Current Medications Sig/Catarino Start time Last Medication Dose Stop Time Status Admin Potassium Chloride 10 MEQ ONCE ONE 06/15 0400 UNVr 06/15 06/15 0401 0413 Laboratory Tests 06/15/18 0300: Anion Gap 13, Estimated GFR > 60, BUN/Creatinine Ratio 18.6, Glucose 78, Calcium 8.7, Total Bilirubin 0.4, AST 17, ALT 21, Alkaline Phosphatase 61, Total Protein 6.2 L, Albumin 3.6, Globulin 2.6, Albumin/Globulin Ratio 1.4, Lipase 36, CBC w Diff NO MAN DIFF REQ, RBC 3.49 L, MCV 94.2, MCH 31.4 H, MCHC 33.3, RDW 14.3, MPV 8.1, Gran % 48.5, Lymphocytes % 39.2, Monocytes % 10.8 H, Eosinophils % 1.2 , Basophils % 0.3, Absolute Granulocytes 2.3, Absolute Lymphocytes 1.8, Absolute Monocytes 0.5, Absolute Eosinophils 0.1, Absolute Basophils 0 Initial ED EKG: none Departure Departure Time of Disposition: 433 Disposition: HOME OR SELF CARE Condition: Stable Clinical Impression Primary Impression: Gastritis Secondary Impressions: Headache Referrals: Isabelle PAULSON,Jeri (PCP/Family) Elo PAULSON,Denis Buchanan Departure Forms: Customer Survey General Discharge Information Prescriptions: Current Visit Scripts Diphenoxylate HCl/Atropine (Lomotil 2.5-0.025 MG Tablet) 1 TAB PO 4 TIMES/DAY PRN diarrhea #20 TAB Metoclopramide HCl (Reglan) 1 TAB PO 4 TIMES/DAY PRN nausea #30 TAB 30 minutes before meals and bedtime
[2018-06-15 03:24] LABS: ABSOLUTE BASOPHIL COUNT 0 /CUMM (0.0-0.2); ABSOLUTE EOSINOPHIL COUNT 0.1 /CUMM (0.0-0.7); ABSOLUTE GRANULOCYTE CT 2.3 /CUMM (1.4-6.5); ABSOLUTE LYMPH COUNT 1.8 /CUMM (1.2-3.4); ABSOLUTE MONOCYTE COUNT 0.5 /CUMM (0.10-0.60); BASOPHIL % 0.3 % (0.0-2.0); EOSINOPHIL % 1.2 % (0-5); GRANULOCYTE % 48.5 % (42.2-75.2); HEMATOCRIT 32.9 % (37-47); MEAN CORPUSCULAR HGB 31.4 PG (27.0-31.0); MEAN CORPUSCULAR HGB CONC 33.3 G/DL (33.0-37.0); MEAN CORPUSCULAR VOLUME 94.2 FL (81.0-99.0); MEAN PLATELET VOLUME 8.1 FL (7.4-10.4); PLATELET COUNT 286 /CUMM (130-400); RBC DISTRIBUTION WIDTH 14.3 % (11.5-14.5); RED BLOOD CELL CT 3.49 /CUMM (4.20-5.40); WHITE BLOOD CELL COUNT 4.7 /CUMM (4.8-10.8)
[2018-06-15] MEDS ORDERED: LOMOTIL 2.5-0.1 EACH PO (04:42)
[2018-06-15] MEDS ORDERED: REGLAN10 M1 PO (04:42)
[2018-06-15 06:05] VITALS: BP 138/68
== END 2018-06-15 06:06 ==
LOC: ERH 02:05
PROVIDERS: Emergency Medicine
DX: K29.70 Gastritis, unspecified, without bleeding (principal); R51 Headache; R11.2 Nausea with vomiting, unspecified; R10.84 Generalized abdominal pain; R19.7 Diarrhea, unspecified
CPT/HCPCS: 93005; 93010; 96361; 96374; 96375; J0131; J2765

== ENCOUNTER 2018-07-17 21:15 | Inpatient (IN) | payer OTHER ==
[~2018-07-17] VITALS: Ht 154.9 cm; Wt 44.5 kg
[~2018-07-17 21:15] MED LIST changes: +BACLOFEN10 M1 PO; +TRAMADOL HCL50 M1 PO
[2018-07-17] MEDS ORDERED: CARISOPRODOL350 M1 PO (22:00)
--- NOTE | 2018-07-17 22:14 | ED PSYCHIATRIC COMPLAINT ---
See Addendum History of Present Illness General Chief Complaint: General Adult Stated Complaint: WITHDRAWING FROM XANAX, HEAD INJURY, HALLUCINATION Source: patient, family Exam Limitations: poor historian Vital Signs & Intake/Output Vital Signs & Intake/Output Vital Signs Date Time Temp Pulse Resp B/P B/P Pulse O2 O2 Flow FiO2 Mean Ox Delivery Rate 07/18 0821 98.1 64 19 123/73 97 Room Air Room Air 07/18 0558 98.7 62 20 121/71 96 Room Air 07/17 2122 97.0 80 20 171/103 99 Room Air ED Intake and Output 07/18 0000 07/17 1200 Intake Total Output Total Balance Patient 103 lb Weight DAUGHTER [phone] ARIANNA 50-year-old female presents to the emergency department after falling and according to the daughters hallucinating. The patient has been taking extra of her medication. And ran out. Now her last CAT scan was yesterday. She's been hallucinating. She denies any chest pain but admits to chronic pain. She also admits to drinking alcohol Allergies Coded Allergies: venom-honey bee (bee venom (honey bee)) (Severe, ANAPHYLAXIS 04/30/18) ketorolac (From TORADOL) (ITCHING 04/30/18) Reconcile Medications Alprazolam (Xanax) 1 MG TABLET 1 MG PO BID ANXIETY Carisoprodol 350 MG TABLET 1 TAB PO BID MUSCLE SPASMS (Reported) Dicyclomine HCl 20 MG TABLET 1 TAB PO BID PRN ABD PAIN (Reported) Diphenoxylate HCl/Atropine (Lomotil 2.5-0.025 MG Tablet) 2.5 MG-0.025 MG TABLET 1 TAB PO 4 TIMES/DAY PRN DIARRHEA (Reported) Levothyroxine Sodium 50 MCG TABLET 1 TAB PO DAILY AC THYROID (Reported) Methotrexate 2.5 MG TABLET 5 TAB PO QTUES RA (Reported) Metoclopramide HCl (Reglan) 10 MG TABLET 1 TAB PO 4 TIMES/DAY PRN NAUSEA ( Reported) 30 minutes before meals and bedtime Triage Note: PT HERE WITH MULTIPLE COMPLAINRS. PT STATES " IM WITHDRAWING FROM XANAX AND SOMA. LAST TAKEN XANAX THIS AM AND SOMA WAS LAST NIGHT. PT REPORTS RECENT FALLS LAST BEING YESTERDAY. PT REPORTS SHE MAY HAVE +LOC. PT DENIES SI/HI. PT REPORTS SHE HASNT EATEN OR DRANK IN 3 DAYS. Triage Nurses Notes Reviewed? yes Onset: Abrupt Duration: unknown duration Timing: unknown HPI: 07/17/18 58-year-old female presents to the emergency department for severe anxiety, hallucinating according to the daughter, multiple falls, alcohol abuse, benzodiazepine dependency. The patient states that she's been severely anxious taking extra of her medications. She subsequently ran out and is now been severely anxious, she's been drinking alcohol, falling often. She denies suicidal ideation but admits to significant depression. Collateral information from the family notes that they're very concerned with the degree of depression and abuse of medications, and feel that she is gravely disabled and a danger to herself. (Melo Potts DO) Past History Travel History Traveled to [place] past 21 day No Medical History Any Pertinent Medical History? 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 No (Melo Potts DO) Review of Systems Review of Systems Constitutional: Denies: fever. Respiratory: Denies: short of breath. Cardiovascular: Denies: chest pain. GI: Denies: abdominal pain. Genitourinary: Reports: no symptoms. Musculoskeletal: Reports: no symptoms. Skin: Reports: see HPI. Neurological/Psychological: Reports: see HPI. Hematologic/Endocrine: Reports: no symptoms. Immunologic/Allergic: Reports: no symptoms. (Melo Potts DO) Physical Exam Physical Exam General Appearance: alert, awake, anxious, moderate distress Head: ecchymosis Eyes: Bilateral: PERRL, EOMI. Ears, Nose, Throat: normal pharynx Neck: normal inspection, supple, full range of motion Respiratory: no respiratory distress Cardiovascular: regular rate/rhythm Gastrointestinal: non-tender Extremities: normal range of motion Neurological/Psychiatric: awake, agitated, alert, depressed affect Appearance/Memory/Insight: disheveled Behavoir/Eye Contact/Speech: avoids eye contact Thoughts/Hallucinations: no apparent hallucination Skin: normal color Medical Clearance Statement * SAD PERSONS SAD PERSONS Response Value Age <19 or >45 years? yes 1 Depression/Hopelessness? yes 2 Previous Attempts/Psych Care yes 1 Excessive Ethanol/Drug Use? yes 1 Rational Thinking Loss? yes 2 Single//? yes 1 Social Support? has support 0 Total 8 SAD PERSONS Done? yes (Melo Potts DO) Progress Differential Diagnosis: drug intoxication, drug overdose, drug withdrawal Plan of Care: Orders Procedure Date/time Status Regular Diet 07/18 B Active ED CRISIS PSYCH CONSULT 07/18 0137 Active CIWA 07/17 225 Active Continuous Observation Monitor 07/17 2222 Active URINE DRUG SCREEN FOR ER ONLY 07/17 222 Complete ETHANOL 07/17 2222 Complete COMPREHENSIVE METABOLIC PANEL 07/17 2222 Complete CBC WITHOUT DIFFERENTIAL 07/17 222 Complete Current Medications Sig/Catarino Start time Last Medication Dose Stop Time Status Admin Ondansetron HCl 4 MG Q8P PRN 07/18 1215 UNVr 07/18 (Zofran) 1213 Carisoprodol 350 MG BID 07/18 0900 UNVr (Soma) Levothyroxine Sodium 0.05 MG DAILY AC 07/18 0700 UNVr 07/18 (Synthroid) 0806 Alprazolam 1 MG Q12 PRN 07/18 0330 UNVr 07/18 (Xanax) 07/25 0329 1222 Metoclopramide HCl 10 MG 4 TIMES/DAY PRN 07/18 0330 UNVr (Reglan) Laboratory Tests 07/18/18 0249: Urine Opiates Screen < 100, Methadone Screen 72, Barbiturate Screen < 60, Ur Phencyclidine Scrn < 6.00, Amphetamines Screen < 100, U Benzodiazepines Scrn > 800 H, Urine Cocaine Screen < 50, Urine Cannabis Screen < 5.00 07/17/18 2255: Anion Gap 8, Estimated GFR > 60, BUN/Creatinine Ratio 14.3, Glucose 93, Calcium 8.8, Total Bilirubin 0.4, AST 23, ALT 20, Alkaline Phosphatase 63, Total Protein 6.6, Albumin 3.9, Globulin 2.7, Albumin/Globulin Ratio 1.4, CBC w Diff NO MAN DIFF REQ, RBC 3.74 L, MCV 93.6, MCH 31.4 H, MCHC 33.5, RDW 15.3 H, MPV 7.5, Gran % 50.9, Lymphocytes % 31.5, Monocytes % 14.9 H, Eosinophils % 1.9, Basophils % 0.8, Absolute Granulocytes 1.7, Absolute Lymphocytes 1.0 L, Absolute Monocytes 0.5, Absolute Eosinophils 0.1, Absolute Basophils 0, Serum Alcohol < 10.0 Initial ED EKG: none (Melo Potts DO) Hand-Off Endorsed To: Melo Potts DO Endorsed Time: 1308 Pending: consult (Maria PAULSON,Mahendra Valenzuela) Departure Departure Disposition: STILL A PATIENT Condition: Stable Clinical Impression Primary Impression: Hallucinations Secondary Impressions: Alcohol abuse, Benzodiazepine dependence, Depression, Hypokalemia Referrals: Jeri Walton MD (PCP/Family) Departure Forms: Customer Survey General Discharge Information Comments The patient was signed out to Dr. Bull at 1 AM. She was given 20 mEq of KCl. She is for crisis evaluation. Monitor CIWA scores. (Melo Potts DO) Departure Comments pt to be signed out to dr. [email or web address] 07/18/18, 7am. (Ml PAULSON,Judah Levine)
[2018-07-17] MEDS ORDERED: DICYCLOMINE HCL20 M1 PO (22:26)
[2018-07-17] MEDS ORDERED: REGLAN10 M1 PO (22:27)
[2018-07-17] MEDS ORDERED: LOMOTIL 2.5-0.1 EACH PO (22:27)
[2018-07-17] MEDS ORDERED: METHOTREXATE2.5 M2 PO (22:28)
[2018-07-17 22:59] LABS: ABSOLUTE BASOPHIL COUNT 0 /CUMM (0.0-0.2); ABSOLUTE EOSINOPHIL COUNT 0.1 /CUMM (0.0-0.7); ABSOLUTE GRANULOCYTE CT 1.7 /CUMM (1.4-6.5); ABSOLUTE MONOCYTE COUNT 0.5 /CUMM (0.10-0.60); BASOPHIL % 0.8 % (0.0-2.0); EOSINOPHIL % 1.9 % (0-5); GRANULOCYTE % 50.9 % (42.2-75.2); MEAN CORPUSCULAR HGB 31.4 PG (27.0-31.0); MEAN CORPUSCULAR HGB CONC 33.5 G/DL (33.0-37.0); MEAN CORPUSCULAR VOLUME 93.6 FL (81.0-99.0); MEAN PLATELET VOLUME 7.5 FL (7.4-10.4); PLATELET COUNT 270 /CUMM (130-400); RBC DISTRIBUTION WIDTH 15.3 % (11.5-14.5); RED BLOOD CELL CT 3.74 /CUMM (4.20-5.40); WHITE BLOOD CELL COUNT 3.3 /CUMM (4.8-10.8)
--- NOTE | 2018-07-18 02:19 | CT SCAN REPORT ---
EXAMINATION: CT HEAD WITHOUT CONTRAST CLINICAL INFORMATION: Mental status change. Trauma. COMPARISON: July 13, 2018. TECHNIQUE: Contiguous helical images of the brain were obtained without IV contrast. Multiplanar reconstructions were performed. DLP: 609 mGy-cm. FINDINGS: There are no pathologic extra-axial fluid collections. The lateral, third, fourth ventricles are nondilated and concordant with the appearance of the sulci. There is no evidence for acute intraparenchymal hemorrhage or infarct. There is neither mass nor mass effect. There is no shift of midline structures. The paranasal sinuses and mastoid air cells are clear. There are no osseous lesions. IMPRESSION: No evidence for acute intracranial injury.
--- NOTE | 2018-07-18 10:49 | ED PSYCH CRISIS CONSULTATION ---
Crisis Consult Basic Assessment Date of Consult: 07/18/18 Responsible Person/Accompanied By: Self and Daughter Kady Insurance Authorization: Insurance #1: Insurance name: [employer] Phone number: Policy number: [id number] Group number: Authorization number: ED Provider: Patient's ED Provider: Melo Potts DO Primary Care Physician: Patient's PCP: Jeri Walton MD PCP's Chief Complaint: ETOH/Drug Related Complaint Patient's Quote: "everything is happening" Present Illness: Pt is a 58 year old female brought into the ED by her daughter Kady after falling and per her daughter, pt was hallucinating. Pt reports she has a lot of stressors going on in her life, financial instability, possible loss of her home , currently job seeking but no call backs, pt has a lot of medical issues recently where she has come to the ED a number of times. Pt reports her mood as reports being on edge and hypervigilant that people are going to get her. Pt reports losing 20 pounds recently and does not eat consistently. Pt does not report anything about falling. Tox screen came back positive for Benzo and was negative for alcohol. Pt denies SI, HI, AH, VH at this time. Pt reports she is feeling dizzy, getting a headache, and feeling shaky. Pt states she called [facility] for a detox bed, they said they had one so she went. Pt reports after waiting for hours they told her they had no beds, she called her daughter to come pick her up in [place]. Pt presents as a poor historian and disorganized in her thoughts. Pt reports she was home yesterday talking to her daughter but realized that her daughter was not home. Pt wants detox from Xanax which she is prescribed 1mg twice daily. Pt reports she takes 3 tablets daily and reports I cant do this anymore, I need to get off of it and enough is enough. Pt reports last using her xanax on 07/17/18 in the morning. Pt is also prescribed Soma 350mg twice daily. Pt has had a number of surgeries, 2 lower back surgeries, a neck surgery, rotator cuff surgery and both knees having meniscus replacement. Pt then reports she went to [facility] for an MRI for her knee but also reported earlier she was there for detox. Pt reports her youngest daughter Kady is her biggest support. Pt, daughter and 2 other people reportedly live all in the same home. Pt reports daughter is and due in October. Pt stresses that the home will be taken away due to foreclosure but then reports if she gets a home and changed her mortgage the home will stay in her name. Pt presented to the ED December 2016 with similar complaints about detox, financial instability and loss of home. Pt was admitted to CPS and discharged to IOP which she was non-complaint with. Pt is not currently on any psychiatric medications nor does she have providers in the area. C-SSRS was completed. A mini mental staus exam was done due to concern with her oreintation. Pt did half of it, due to no having her glasses to do the second part of the MSE. Pt's PCP prescribes her Xanax. Pt would like to go to detox with intentions of going to IOP after. Academic Affairs Manager called daughter Kady for collatoral and left messge. . Patient's Address: [address] [place] [address] [place] [address] Other Phone Number: Who Do You Live With? Daughter Family/Informants Interviewed: no family/collateral ID'd Allergies - Coded Allergies: venom-honey bee (bee venom (honey bee)) (Severe, ANAPHYLAXIS 04/30/18) ketorolac (From TORADOL) (ITCHING 04/30/18) Current Medications - Scheduled Medications Alprazolam (Xanax) 1 MG TABLET 1 MG PO BID ANXIETY #28 TAB Prescribed by Velasquez Corral APRN on 01/21/17 Carisoprodol 350 MG TABLET 1 TAB PO BID MUSCLE SPASMS (Reported) Entered as Reported by Izzy Acevedo on 07/17/18 2200 Levothyroxine Sodium 50 MCG TABLET 1 TAB PO DAILY AC THYROID #30 (Reported) Entered as Reported by Izzy Acevedo on 04/28/16 1742 Methotrexate 2.5 MG TABLET 5 TAB PO QTUES RA (Reported) Entered as Reported by Izzy Acevedo on 07/17/18 2228 Scheduled PRN Medications Dicyclomine HCl 20 MG TABLET 1 TAB PO BID PRN ABD PAIN (Reported) Entered as Reported by Izzy Acevedo on 07/17/182225 Diphenoxylate HCl/Atropine (Lomotil 2.5-0.025 MG Tablet) 2.5 MG-0.025 MG TABLET 1 TAB PO 4 TIMES/DAY PRN DIARRHEA (Reported) Entered as Reported by Izzy Acevedo on 07/17/182226 Metoclopramide HCl (Reglan) 10 MG TABLET 1 TAB PO 4 TIMES/DAY PRN NAUSEA ( Reported) Entered as Reported by Izzy Acevedo on 07/17/182226 Laboratory Results: Laboratory Tests 07/18/18 0249: Urine Opiates Screen < 100, Methadone Screen 72, Barbiturate Screen < 60, Ur Phencyclidine Scrn < 6.00, Amphetamines Screen < 100, U Benzodiazepines Scrn > 800 H, Urine Cocaine Screen < 50, Urine Cannabis Screen < 5.00 07/17/18 2255: Anion Gap 8, Estimated GFR > 60, BUN/Creatinine Ratio 14.3, Glucose 93, Calcium 8.8, Total Bilirubin 0.4, AST 23, ALT 20, Alkaline Phosphatase 63, Total Protein 6.6, Albumin 3.9, Globulin 2.7, Albumin/Globulin Ratio 1.4, CBC w Diff NO MAN DIFF REQ, RBC 3.74 L, MCV 93.6, MCH 31.4 H, MCHC 33.5, RDW 15.3 H, MPV 7.5, Gran % 50.9, Lymphocytes % 31.5, Monocytes % 14.9 H, Eosinophils % 1.9, Basophils % 0.8, Absolute Granulocytes 1.7, Absolute Lymphocytes 1.0 L, Absolute Monocytes 0.5, Absolute Eosinophils 0.1, Absolute Basophils 0, Serum Alcohol < 10.0 Past History Past Medical History Neurological: NONE EENT: ALLERGIES- SEASONAL; BEES (seasonal allergies) Cardiovascular: NONE Respiratory: NONE Gastrointestinal: ACID REFLUX Hepatic: cholelithiasis Renal: NONE Musculoskeletal: osteoarthritis, sciatica, spinal stenosis (CERVICAL), RheUmatoid Arthritis Psychiatric: anxiety, ptsd Endocrine: hypothyroidism Blood Disorders: NONE Cancer(s): NONE 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 Supportive daughter. Seeking jobs. 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; F11.20 opiate use d/o on maintainence therapy; F32.9 depression unspecified ; F41.1 Anxiety d/o medical: rheumatoid arthritis, chronic pain pscyhosocial: financial problems, primary relationships Substance Use/Abuse History Drug Use/Abuse 1 Substances Used/Abused Yes Substance Used/Abused Benzodiazepines First Use "couple years ago" Last Used 07/17/18 How much used/taken 3 tablets a day How often everyday For how long years Route of use oral Drug Use/Abuse 2 Substances Used/Abused Yes Substance Used/Abused Prescribed Opiates (SOMA) First Use 1989 Last Used 07/17/18 How much used/taken 2 a day How often everyday For how long years Route of use oral Substance Abuse Treatment Substance Abuse Treatment Past Substance Abuse TX Yes Inpatient Treatment Yes Outpatient Treatment Yes Location of Treatment [facility] CPS and IOP Reason for Treatment benzo, anxiety, depression Dates of Treatment Dec 2016 Response to Treatment complaint with CPS and noncompliant with IOP Current Mental Status Mental Status Orientation: Person, Place, Situation Affect: WNL Speech: WNL Neuro-vegetative: Anhedonia, Appetite Decreased, Concentration Poor, Energy Decreased, Loss of Interest, Sleep Disturbance Appearance Appearance- Dress/Hygiene: Pt is dressed in hospital scrubs and has good hygiene Behaviors Thought Process: Disorganized Thought Content: WNL Memory: WNL (with some disorganization ) Insight: Fair SI/HI Risk Assessment Past Suicidal Ideation/Attempts No Current Suicidal Ideation/Att No Past Homicidal Ideation/Att: No Current Homicidal Ideation/Attempts No Degree of Intent: Self Destructive/No Danger To: Self Gravely Disabled: Lack of Insight, Poor Impulse Control, Poor Judgment Risk Factors: high anxiety/distress, SA/MH hospitalized, substance abuse, poor impulse control, limited support Lethality Ratin PTSD Checklist PTSD Done? patient declined ED Management Sitter: Yes Restraints: No DSM5/PS Stressors/Medical Prob Diagnosis' (DSM 5, Stressors, Medical): F13.20 Sed/Hyp/Anx Use D/O Moderate F14.9 Unspecified Anxiety PTSD Chronic pain; neck, back, shoulder, knee Current GAF: 35 Departure Disposition Psych Medical Clearance Date: 07/18/18 Medically Cleared at: 0850 Time Started: 50 Time Ended: 919 Psychiatrist Consulted: Dr. Radha Larkin Date Disposition Established: 07/18/18 Time Disposition Established: 999 Plan for Disposition - Modality: Inpatient Detoxification Facility: [facility] Rationale for Disposition: Pt does not meet inpatient needs, pt will be referred to detox program. Pt denies SI, HI, VH, AH at this time. Pt is cooperative and seaking teatment. Referrals Jeri Walton MD (PCP/Family)
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
[2018-07-18 22:53] VITALS: BP 161/88
[2018-07-18] MEDS ORDERED: FAMOTIDINE20 M1 PO (23:48)
[2018-07-19 00:34] VITALS: BP 161/88
--- NOTE | 2018-07-19 09:05 | CPS PROVIDER INIT ASMT PSYCH ---
Psychiatric Admission Bellhop's Note Reviewed: Yes Patient Seen and Examined: Yes Identifying Information: Pt is a 58 year old female brought into the ED by her daughter Kady after falling and per her daughter, pt was hallucinating. Chief Complaint: hallucinations Reaction to Hospitalization: voluntary History of Present Illness Onset of Illness: Pt states she called [place] for a detox bed, they said they had one so she went. Pt reports after waiting for hours they told her they had no beds, she called her daughter to come pick her up in [place]. Pt presents as a poor historian and disorganized in her thoughts. Pt reports she was home yesterday talking to her daughter but realized that her daughter was not home. Pt wants detox from Xanax which she is prescribed 1mg twice daily. Pt reports she takes 3 tablets daily and reports I cant do this anymore, I need to get off of it and enough is enough. Pt reports last using her xanax on 07/17/18 in the morning. Pt is also prescribed Soma 350mg twice daily. Pt has had a number of surgeries, 2 lower back surgeries, a neck surgery, rotator cuff surgery and both knees having meniscus replacement. Pt then reports she went to [facility] for an MRI for her knee but also reported earlier she was there for detox. Circumstances Leading to Admission: As per Chen Sauceda's note of 07/18/18: Pt is a 58 year old female brought into the ED by her daughter Kady after falling and per her daughter, pt was hallucinating. Pt reports she has a lot of stressors going on in her life, financial instability, possible loss of her home , currently job seeking but no call backs, pt has a lot of medical issues recently where she has come to the ED a number of times. Pt reports her mood as reports being on edge and hypervigilant that people are going to get her. Pt reports losing 20 pounds recently and does not eat consistently. Pt does not report anything about falling. Tox screen came back positive for Benzo and was negative for alcohol. Pt denies SI, HI, AH, VH at this time. Pt reports she is feeling dizzy, getting a headache, and feeling shaky. Problem(s) Justifying Need for Admission: benzo-withdrawal psychosis Other HPI: 07/18/18 Evening Crisis Addendum: Pt was refused admission to [facility]. This senior underwriter reviewed the Crisis Assessment completed earlier today. This senior underwriter met with the pt who stated she is hopeless and discussed numerous stressors impacting her mood. Spoke by phone with the pt's daughter Kady ([phone]). The pt lives with Kady who stated she does not believe the pt is safe to return home. Kady stated the pt has been hallucinating for 4 days including talking to people who are not present. Kady stated the pt demonstrated repeated bizarre behavior over the past 4 days including texting "random words and jibberish" to Kady. Kady stated that on 07/17/18 she found her mother drilling a hole in a bottle cap (already removed from the bottle) stating she is "relieving the pressure." Kady stated the mother also believed she has a job depsite being unemployed. Past Psychiatric History Past Diagnosis(es)- if any: PTSD Anxiety; rule out bipolar spectrum d/o; rule out personality disorder; benzodiazapine dependence. Past Precipitating Factors- if any: Benzo abuse - Include inpatient and outpatient treatment Treatment History: The patient was admitted to [facility]'s inpatient psychiatry Department on January 17, 2017 and discharged on January 21, 2017 [facility] in 2001. [facility] outpatient. History of Suicide Attempts or Gestures No history of suicide attempts Substance Abuse History: History of sedative hypnotic/anxiolytic use disorder Allergies: Coded Allergies: venom-honey bee (bee venom (honey bee)) (Severe, ANAPHYLAXIS 04/30/18) ketorolac (From TORADOL) (ITCHING 04/30/18) Home Med List: Alprazolam (Xanax) 1 MG TABLET 1 MG PO BID ANXIETY #28 TAB Prescribed by Velasquez Corral APRN on 01/21/17 Carisoprodol 350 MG TABLET 1 TAB PO BID MUSCLE SPASMS (Reported) Entered as Reported by Izzy Acevedo on 07/17/18 2200 Levothyroxine Sodium 50 MCG TABLET 1 TAB PO DAILY AC THYROID #30 (Reported) Entered as Reported by Izzy Acevedo on 04/28/16 1742 Methotrexate 2.5 MG TABLET 5 TAB PO QTUES RA (Reported) Entered as Reported by Izzy Acevedo on 07/17/18 2228 Scheduled PRN Medications Dicyclomine HCl 20 MG TABLET 1 TAB PO BID PRN ABD PAIN (Reported) Entered as Reported by Izzy Acevedo on 07/17/182225 Diphenoxylate HCl/Atropine (Lomotil 2.5-0.025 MG Tablet) 2.5 MG-0.025 MG TABLET 1 TAB PO 4 TIMES/DAY PRN DIARRHEA (Reported) Entered as Reported by Izzy Acevedo on 07/17/182226 Metoclopramide HCl (Reglan) 10 MG TABLET 1 TAB PO 4 TIMES/DAY PRN NAUSEA - Include any medical condition(s) that may - impact the patient's recovery/remission Past Medical History: GERD osteoarthritis, spinal stenosis (CERVICAL), RheUmatoid Arthritis hypothyroidism Past History Medical History Neurological: NONE EENT: ALLERGIES- SEASONAL; BEES (seasonal allergies) Cardiovascular: NONE Respiratory: NONE Gastrointestinal: colitis, ACID REFLUX Hepatic: cholelithiasis Renal: NONE Musculoskeletal: osteoarthritis, sciatica, spinal stenosis (CERVICAL), RheUmatoid Arthritis Psychiatric: anxiety, ptsd Endocrine: hypothyroidism Blood Disorders: BORDERLINE ANEMIA Cancer(s): NONE 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 Significant Relationships (family/friends): 24-year-old daughter Kady, 27-year-old daughter, and 4-1/2-year-old grandson. 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 Vocation/Occupation: Unemployed for past few years. Legal: Motor vehicle related charges in 2017 [employer] Behaviors Screening Tobacco Screening Tobacco Use from ED Docu: Current Daily Use Daily Tobacco Use Amount/Type: =< 4 Cigarettes daily - If tobacco counseling indicated - the following topics are required. - #1 Recognizing dangerous situations. - #2 Coping Skills. - #3 Basic information about quitting. Status of Tobacco Cessation Counseling: #1, #2 AND #3 Completed Cessation Med Status Pt Refused Cessation Meds Alcohol Screening - ETOH screen POS if BAL >=80 or Audit-C>= M4/F3 Audit-C Score from Diag Assess: 1 Blood Alcohol Level: Laboratory Tests 07/17 2255 Toxicology Serum Alcohol (<10 MG/DL) < 10.0 Alcohol Use Screening Results: Neg per Audit C &/or BAL - If ETOH counseling indicated - the following topics are required. - #1 Express concern about the patient's - drinking at unhealthy levels, include informing - of national norms for moderate drinking: - men <= 14 drinks/week, max 4 drinks/occasion - women <= 7 drinks/week, max 3 drinks/occasion - #2 Providing feedback, including linking alcohol to - negative physical effects (liver injury, hypertension) - negative emotional effects (relationship problems and - depression) - negative occupational consequences (reduced work - performance) - #3 Advising the patient to abstain from alcohol or - to drink below national norms for moderate drinking - (as listed above). Status of ETOH Use Counseling: N/A B/C NO ETOH Use Metabolic Screening - Screen if on a Neuroleptic Medication - Metabolic screening should include: - Blood Pressure, BMI, Glucose or Hgb A1c, & a - Lipid profile from within the past 365 days. Metabolic Screening Patient on a neuroleptic(s) . Enter below results for Hemoglobin A1C, and lipid panel if obtained during the last 365 days. BMI: 18.500 Blood Pressure: 142/93 Laboratory Results From [facility] (If applicable): Lab Cholesterol 229 MG/DL H 01/19/17 0619 Cholesterol/HDL Ratio 3 % 01/19/17 06 HDL Cholesterol 76 mg/dL H 01/19/17 06 Hemoglobin A1c 5.1 01/19/17 06 LDL Cholesterol, Calc 137 mg/dL H 01/19/17 0619 Triglycerides 84 mg/dL 01/19/17 06 Exam and Plan Mental Status Examination Ambulation Status: Patient was steady on her feet Appearance: Short-term thin Attitude towards examiner: Calm and cooperative Psychomotor activity: Normal psychomotor activity Behavior: No abnormal behaviors Quality of speech: Normal speech Affect: Euthymic Mood: Depression and anxiety Suicidal Ideation: Denied thoughts of suicide Homicidal Ideation: Denied thoughts of homicide Hallucinations: Denied hallucinations since yesterday Paranoid/Delusional Material: Denied feeling paranoid Difficulties with thought organization: Coherent Insight: Limited insight Judgment: Questionable judgment Orientation: Alert and oriented Cognition: Minor difficulties with attention and concentration Memory Function: No evidence of gross short-term memory impairment Estimate of intellectual functioning: Average Assets/Strengths Patient Identified Assets/Strengths: Patient has a supportive daughter, she is resourceful and intelligent Impression/Plan Impression and Plan: 58-year-old white female who presents with hallucinations in the context of benzodiazepine withdrawal. The patient was at [facility]'s emergency room before coming to [facility]'s emergency room patient reported that at [facility] emergency room called security to have her expelled from the emergency room. 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 Sedative hypnotic anxiolytic withdrawal Chronic pain syndrome - Initial Tx Plan for Active Psych & Medical Conditions Treatment Plan: Inpatient psychiatric care with safety checks every 15 minutes and Gabapentin 600 mg every 4 hours as needed for anxiety or for insomnia Librium stays at 100 mg for tonight and would be reevaluated tomorrow Continue Haldol 5 mg at bedtime Nursing assessments, vital signs Group therapy, activities therapy, and milieu therapy Biopsychosocial assessment, collateral information, and aftercare planning by social work - Factors that would help patient function - in a less restrictive setting. Factors: Patient will be discharge once there is a safe discharge plan and that she is free of hallucinations.
[2018-07-19 09:11] VITALS: BP 142/93
--- NOTE | 2018-07-19 15:14 | SOCIAL WORKER SOCIAL HX PSYCH ---
Social History Basic Assessment Insurance Authorization: Insurance #1: Insurance name: [employer] Phone number: Policy number: [id number] Group number: Authorization number: PENDING Curr Source of Income/Entitlements: The patient was supporting herself, for the last 2 years on a workmans comp claim, however is now looking for employment. Primary Care Physician: Patient's PCP: Jeri Walton MD PCP's Present Problem: The patient presents with a depressed mood and flat affect. The patient rates her depression a 5 out of 10 and anxiety a 10 out of 10, 10 being the most severe. The patient denies any suicidal or homicidal ideations. The patient states that she is not experiencing any auditory or visual hallucinations. The following was taken from the consultation completed by Chen LINCOLN environmental health and safety intern 07/18/2018 "Pt is a 58 year old female brought into the ED by her daughter Kady after falling and per her daughter, pt was hallucinating. Pt reports she has a lot of stressors going on in her life, financial instability, possible loss of her home , currently job seeking but no call backs, pt has a lot of medical issues recently where she has come to the ED a number of times. Pt reports her mood as reports being on edge and hypervigilant that people are going to get her. Pt reports losing 20 pounds recently and does not eat consistently. Pt does not report anything about falling. Tox screen came back positive for Benzo and was negative for alcohol. Pt denies SI, HI, AH, VH at this time. Pt reports she is feeling dizzy, getting a headache, and feeling shaky. Pt states she called [place] for a detox bed, they said they had one so she went. Pt reports after waiting for hours they told her they had no beds, she called her daughter to come pick her up in [place]. Pt presents as a poor historian and disorganized in her thoughts. Pt reports she was home yesterday talking to her daughter but realized that her daughter was not home. Pt wants detox from Xanax which she is prescribed 1mg twice daily. Pt reports she takes 3 tablets daily and reports I cant do this anymore, I need to get off of it and enough is enough. Pt reports last using her xanax on 07/17/18 in the morning. Pt is also prescribed Soma 350mg twice daily. Pt has had a number of surgeries, 2 lower back surgeries, a neck surgery, rotator cuff surgery and both knees having meniscus replacement. Pt then reports she went to [facility] for an MRI for her knee but also reported earlier she was there for detox. Pt reports her youngest daughter Kady is her biggest support. Pt, daughter and 2 other people reportedly live all in the same home. Pt reports daughter is and due in October. Pt stresses that the home will be taken away due to foreclosure but then reports if she gets a home and changed her mortgage the home will stay in her name. Pt presented to the ED December 2016 with similar complaints about detox, financial instability and loss of home. Pt was admitted to [facility] and discharged to [facility] which she was non-complaint with. Pt is not currently on any psychiatric medications nor does she have providers in the area. C-SSRS was completed. A mini mental staus exam was done due to concern with her oreintation. Pt did half of it, due to no having her glasses to do the second part of the MSE. Pt's PCP prescribes her Xanax. Pt would like to go to detox with intentions of going to IOP after." The following was taken from the reasessment completed by Armaan DALEY on 2017 "07/18/18 Evening Crisis Addendum: Pt was refused admission to [facility]. This ghost writer reviewed the Crisis Assessment completed earlier today. This ghost writer met with the pt who stated she is hopeless and discussed numerous stressors impacting her mood. Spoke by phone with the pt's daughter Kady ([phone]). The pt lives with Kady who stated she does not believe the pt is safe to return home. Kady stated the pt has been hallucinating for 4 days including talking to people who are not present. Kady stated the pt demonstrated repeated bizarre behavior over the past 4 days including texting "random words and jibberish" to Kady. Kady stated that on 07/17/18 she found her mother drilling a hole in a bottle cap (already removed from the bottle) stating she is "relieving the pressure." Kady stated the mother also believed she has a job depsite being unemployed. Pt's current presentation and hx discussed by phone with Dr. Garrett, plan is for inpatient admission. Pt stated she is in agreement with this plan and signed the voluntary admission form." Primary Language? Turkish Language(s) Spoken At Home: Turkish Living Situation Rents or Owns Home? owns Residential Care/Treatment Fac N/A Feel Safe Where You Are Living Yes Feel Safe in Relationships? No Comments: Denies being in a relationship currently. Allergies - Coded Allergies: venom-honey bee (bee venom (honey bee)) (Severe, ANAPHYLAXIS 04/30/18) ketorolac (From TORADOL) (ITCHING 04/30/18) Current Medications - Scheduled Medications Alprazolam (Xanax) 1 MG TABLET 1 MG PO BID ANXIETY #28 TAB Prescribed by Velasquez Corral APRN on 01/21/17 Carisoprodol 350 MG TABLET 1 TAB PO BID MUSCLE SPASMS (Reported) Entered as Reported by Izzy Acevedo on 07/17/18 2200 Levothyroxine Sodium 50 MCG TABLET 1 TAB PO DAILY AC THYROID #30 (Reported) Entered as Reported by Izzy Acevedo on 04/28/16 1742 Methotrexate 2.5 MG TABLET 5 TAB PO QTUES RA (Reported) Entered as Reported by Izzy Acevedo on 07/17/18 2228 Scheduled PRN Medications Dicyclomine HCl 20 MG TABLET 1 TAB PO BID PRN ABD PAIN (Reported) Entered as Reported by Izzy Acevedo on 07/17/18 222 Diphenoxylate HCl/Atropine (Lomotil 2.5-0.025 MG Tablet) 2.5 MG-0.025 MG TABLET 1 TAB PO 4 TIMES/DAY PRN DIARRHEA (Reported) Entered as Reported by Izzy Acevedo on 07/17/18 222 Famotidine 20 MG TABLET 20 MG PO PRN DYSPEPSIA (Reported) Entered as Reported by Michelle Machado on 07/18/18 2348 Metoclopramide HCl (Reglan) 10 MG TABLET 1 TAB PO 4 TIMES/DAY PRN NAUSEA ( Reported) Entered as Reported by Izzy Acevedo on 07/17/18 222 Consequences of Psych Med Use: N/A Comments: N/A Past History Past Medical History Neurological: NONE EENT: ALLERGIES- SEASONAL; BEES (seasonal allergies) Cardiovascular: NONE Respiratory: NONE Gastrointestinal: colitis, ACID REFLUX Hepatic: cholelithiasis Renal: NONE Musculoskeletal: osteoarthritis, sciatica, spinal stenosis (CERVICAL), RheUmatoid Arthritis Psychiatric: anxiety, ptsd Endocrine: hypothyroidism Blood Disorders: BORDERLINE ANEMIA Cancer(s): NONE 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 She did not have any siblings and notes that she never looked into her biological parents. Primary Childhood Caretakers: father ((Adoptive)), mother Family Life During Childhood: "fantastic" DCF Involvement? No Mother's Age (Current/): 85 () Relationship w/Mother: She states that they had a fantastic relationship, prior to her passing. Father's Age (Current/): 78 () Relationship w/Father: She states that "he was my other half," prior to him passing. Any Sibling(s)? No Relationship w/Friends: The patient notes that she does have a couple of good friends and finds those relationships are "pretty good." Family Psych/Sub Abuse/Add Hx: Unknown as she was adopted Other Comments: N/A Abuse/Trauma History Trauma History/Current Trauma: Denies Abuse/Trauma Treatment: The patient denies any history of trauma or abuse. Legal History Legal Guardian/Address/Phone: Self Current Legal Status: Pending Foreclosure Have you ever been arrested No Number of Arrests: 1 Hx of Juvenile Legal Charges? No Hx of Adult Legal Charges? No Civil Proceedings: The patient states that she is currently going through foreclosure proceedings. Domestic Relations Court: N/A Child Protective Serv Involvmnt N/A Bridge Builder N/A Psychosocial History Primary Support System: daughter Strengths/Capabilities: The patient has good insight into her need for treatment and is motivated to attend. Weaknesses: She has been abusing her Xanax. Physical Limitations (Interventions): The patient has Rheumatoid Arthritis and has chronic pain issues Last Physical: Unknown ADL Limitations: None noted Clarence/Social/Peer Relations The patient does note that she has friends, and finds those relationships are "pretty good." Meaningful Activities: The patient states that she likes to spend time waching her friends band. Childhood Baptism: Restoration Current Buddhist Affiliation: Restoration Is Spirituality Important to You? "Yes" Patient's Ethnicity: Unknown Cultural/Ethnic Issues: None noted Are There Developmental Issues? No If Yes, Explain: N/A Milestones Achieved: fine motor, gross motor Psychiatric Treatment History Psych Treatment Inpatient Treatment Yes Outpatient Treatment Yes Location of Treatment [place] [id number] for CPS & IOP Reason for Treatment Benzo and anxiety and depression Dates of Treatment Dec 2016 CPS & 2017 IOP Response to Treatment Complaint in CPS and noncomplaint with IOP Current Tire Retreader: She has been getting her medications through her PCP. 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 Risk Factors: high anxiety/distress, SA/MH hospitalized, substance abuse, poor impulse control, limited support Substance Use/Abuse History Drug Use/Abuse:Min 12 mo hx Substance Used/Abused Benzodiazepines (Xanax) First Use " a couple of years ago." Last Used 07/17/18 How much used/taken "3 a day" How often everyday For how long years Route of use oral Explain: N/A Have You Ever Attended ? 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 Highest Grade Completed: Graduated 12th grade Vocational Year Completed: She completed vocational school. College Degree/Major: EMS and medical assisting Other Degree(s): N/A Preferred Learning Style: visual (By. Hx.), experiential HX of Learning Difficulties: None reported Barriers to Learning: None reported Special Communication Needs: None reported Employment History Employment Unemployed Not in Labor Force: The patient is currently looking for work. She notes that for the last 2 years she has been out of work on a Workmans Compensation case. Vocation/Occupational Hx: She states that she tore rotator cuff and out of work Attendance: N/A Performance: Good Comments: N/A History Have You Been in The ? No (Per history) If Yes, Explain: N/A Type of Discharge: N/A Date of Discharge: N/A Current Mental Status Mental Status Orientation: Person, Place, Situation Affect: WNL Speech: WNL Neuro-vegetative: Anhedonia, Appetite Decreased, Concentration Poor, Energy Decreased, Loss of Interest, Sleep Disturbance Appearance Appearance- Dress/Hygiene: The patient is dressed in her own attire and had good eye contact and participation in the evaluation. Behaviors Thought Process: WNL Thought Content: WNL Memory: WNL Insight: Fair SI/HI Risk Assessment Past Suicidal Ideation/Attempts No Current Suicidal Ideation/Att No Past Homicidal Ideation/Att: No Current Homicidal Ideation/Attempts No Degree of Intent: None Danger To: N/A Gravely Disabled: N/A Risk Factors: SA/MH Hospitalization(s), Substance Abuse Lethality Ratin - Conclusion and Recommendations for treatment - and discharge planning Summary: The patient will continue to attend group, family and individual therapy. She will continue to work with the provider on medication management. She will meet with the social worker aide to dicsuss aftercare planning.
--- NOTE | 2018-07-19 19:37 | History & Physical ---
General Information and HPI MD Statement: I have seen and personally examined DOUG MCKEON and documented this H&P. The patient is a 58 year old F who presented with a patient stated chief complaint of withdrawal from xanax, head injury, and hallucinations. Source of Information: patient, old records Exam Limitations: no limitations History of Present Illness: The patient is a 58 yo female with/o "rheumatoid arthritis", osteoarthritis, chronic pain syndrome (back, neck shoulder, etc.), s/p prior cervical spinal fusion and benzodiazepine dependence who returned to ED for evaluation of severe anxiety and hallucinations (as per daughter), multiple falls at home, alcohol and benzodiazepine dependence. The patient is vague regarding the amount of meds she is taking. She stated Dr. Rankin had prescribed her Xanax. She states she has had multiple injuries (including a recent contusion to left forehead) due to multiple falls. She wishes to be seen by a hospice patient care secretary and paint crew supervisor as an outpatient. During my exam she expressed multiple somatic complaints. She has had prior cervical spinal fusion, right rotator cuff , and bilateral knee arthroscopies. She states she has been under significant stress with losing her job, home, and daughter is and delivering in October. Allergies/Medications Allergies: Coded Allergies: venom-honey bee (bee venom (honey bee)) (Severe, ANAPHYLAXIS 04/30/18) ketorolac (From TORADOL) (ITCHING 04/30/18) Home Med list Alprazolam (Xanax) 1 MG TABLET 1 MG PO BID ANXIETY Carisoprodol 350 MG TABLET 1 TAB PO BID MUSCLE SPASMS (Reported) Dicyclomine HCl 20 MG TABLET 1 TAB PO BID PRN ABD PAIN (Reported) Diphenoxylate HCl/Atropine (Lomotil 2.5-0.025 MG Tablet) 2.5 MG-0.025 MG TABLET 1 TAB PO 4 TIMES/DAY PRN DIARRHEA (Reported) Famotidine 20 MG TABLET 20 MG PO PRN DYSPEPSIA (Reported) Levothyroxine Sodium 50 MCG TABLET 1 TAB PO DAILY AC THYROID (Reported) Methotrexate 2.5 MG TABLET 5 TAB PO QTUES RA (Reported) Metoclopramide HCl (Reglan) 10 MG TABLET 1 TAB PO 4 TIMES/DAY PRN NAUSEA ( Reported) 30 minutes before meals and bedtime Past History Travel History Traveled to [place] past 21 day No Medical History Blood Transfusion Hx: No Neurological: NONE EENT: ALLERGIES- SEASONAL; BEES (seasonal allergies) Cardiovascular: NONE Respiratory: NONE Gastrointestinal: colitis, ACID REFLUX Hepatic: cholelithiasis Renal: NONE Musculoskeletal: osteoarthritis, rheumatoid arthritis (STATES RA- HOWEVER ? ACCURACY), sciatica, spinal stenosis (CERVICAL), RheUmatoid Arthritis Psychiatric: anxiety, ptsd Endocrine: hypothyroidism Blood Disorders: BORDERLINE ANEMIA Cancer(s): NONE, NONE CIGAR PACKER AND SHADER/Reproductive: NONE History of MRSA: No History of VRE: No History of CDIFF: No Isolation History: Standard Surgical History Surgical History: cholecystectomy, , spinal fusion (lumbar and cervical ) Past Family/Social History Family History Relations & Conditions if any ALL (THE PATIENT STATES SHE IS ADOPTED. SHE HAS 2 CHILDREN WHO ARE ALIVE AND WELL. UNKNOWN BIOLOGICAL FAMILY HISTORY). Psychosocial History Where do you live? Home Who Do You Live With? child (DAUGHTER WHO IS ) Services at Home: None Primary Language: Macedonian Smoking Status: Current Everyday Smoker (< 4 CIGARETTES/DAY) ETOH Use: heavy use Illicit Drug Use: benzodiazepines, SOMA Functional Ability ADLs Independent: dressing, eating, toileting, bathing. Ambulation: independent Employment History Employment Unemployed Profession/Employer She states that she tore rotator cuff and out of work Review of Systems Review of Systems Constitutional: Denies: no symptoms. EENTM: Reports: eye pain (LEFT FRONTAL HEMATOMA). Cardiovascular: Denies: no symptoms. Respiratory: Denies: no symptoms. GI: Denies: no symptoms. Genitourinary: Denies: no symptoms. Musculoskeletal: Reports: back pain, joint pain, neck pain. Skin: Denies: no symptoms. Neurological/Psychological: Reports: anxiety, depressed, emotional problems, paresthesia. Hematologic/Endocrine: Denies: no symptoms. Immunologic/Allergic: Denies: no symptoms. Post Menopausal: Yes Exam & Diagnostic Data Last 24 Hrs of Vital Signs/I&O Vital Signs Date Time Temp Pulse Resp B/P B/P Pulse O2 O2 Flow FiO2 Mean Ox Delivery Rate 07/209 98.4 75 127/74 07/20 0744 98.2 74 133/81 Physical Exam General Appearance Alert, Oriented X3, Cooperative, Mild Distress (CHRONIC PAIN) Skin No Rashes, No Breakdown, LEFT FRONTAL BRUISING HEENT PERRLA, EOMI, Mucous Membr. moist/pink (LEFT FRONTAL CONTUSION) Neck Supple (CHRONIC PAIN ON MOVEMENT), No JVD, No thryomegaly, +2 Carotid Pulse wo Bruit, No LAD Cardiovascular Regular Rate, Normal S1, Normal S2, No Murmurs Lungs Clear to Auscultation, Normal Air Movement Abdomen Normal Bowel Sounds, Soft, No Tenderness, No Hepatospenomegaly, No Masses Neurological Exam Findings: Normal Gait, Normal Speech, Strength at 5/5 X4 Ext, Normal Tone, Sensation Intact, Cranial Nerves 3-12 NL, Reflexes 2+ Cranial Nerves II through XII: INTACT Extremities No Clubbing, No Cyanosis, No Edema, Normal Pulses, No Tenderness/ Swelling Vascular Normal Pulses, Pulses Symmetrical Last 24 Hrs of Labs/Yuri: Laboratory Tests 07/20/18 0521: Hemoglobin A1c Pending, Triglycerides 149, Cholesterol 202 H, LDL Cholesterol, Calc 103, HDL Cholesterol 70 H, Cholesterol/HDL Ratio 3 Assessment/Plan Assessment: Impression/Plan: #Benzodiazepine (Xanax) Dependence and Withdrawal- with hallucinations. The patient has history of anxiety and long history of benzo use. Has been taking extra medication due to increased stressors (?losing home, etc.). When she ran out of [employer], she began drinking more alcohol. Has had multiple falls and family is concerned. Also was taking Soma. Plan: Will admit to [facility]/Psychiatry. Detox - ? Ativan/Librium. #Depression- the patient denied depression, however chart implied that the family is concerned. Plan: Will follow on psychiatry. #Chronic Pain- the patient states she has rheumatoid and osteoarthritis. Has not seen a hospice patient care secretary. Concern regarding potential opioid dependence. She does have some neck spasm. Plan: Will avoid narcotics/etc. Tylenol prn. Consider Gabapentin? #Arthritis- patient states rheumatoid arthritis in addition to osteoarthritis, however has not seen hospice patient care secretary. Plan: Consider rheumatology referral as OP. #S/P Multiple Falls- appeared steady on her feet during exam. Assume gait instability is due to intoxication. Plan: Will observe ambulation on [facility]. As Ranked By This Provider Problem List: 1. Benzodiazepine withdrawal 2. Benzodiazepine dependence 3. Hallucinations 4. Facial contusion 5. Cervical radiculopathy Miscellaneous Miscellaneous Documentation Attending Case Discussed With: Tami PAULSON,Eliud Primary Care Physician: Isabelle PAULSON,Murugesapill Patient sees these Specialists NONE Level of Patient Care: TRACI Murray Consults Needed: Consulting Physician: NONE Attending MD Review Statement Attending Statement Attending MD Statement: examined this patient, discuss w/resident/PA/PRECISION INSTRUMENT AND TOOL MAKER, agreed w/resident/PA/PRECISION INSTRUMENT AND TOOL MAKER, discussed with family, reviewed EMR data (avail), discussed with nursing, amended to note Attending Assessment/Plan: Agree with above plan.
[2018-07-19 20:08] VITALS: BP 146/74
[2018-07-20 07:44] VITALS: BP 133/81
--- NOTE | 2018-07-20 08:35 | CP SOUTH PROGRESS NOTE PSYCH ---
Psych (Inpt) Progress Note Progress Note Laboratory Tests 07/20 Hemoglobin A1c (4.2 - 5.8 %) Pending Triglycerides (<150 mg/dL) 149 Cholesterol (<200 MG/DL) 202 H LDL Cholesterol, Calc (65 - 129 mg/dL) 103 HDL Cholesterol (40 - 60 mg/dL) 70 H Cholesterol/HDL Ratio (0.00 - 4.23 %) 3 Vital Signs Date Time Temp Pulse B/P B/P O2 07/20 07 98.2 74 133/81 07/19 2008 98.3 69 146/74 Mental Status Examination Patient was sleeping most of the day. She denied that she is overmedicated although she was difficult to wake up several times during the day. She claims that its because she did not sleep at all last night because of her roommate. She did finally wake up and had a short conversation with me and later on I saw her in the kitchen with other patients. She was calm and cooperative, normal psychomotor, activity, No abnormal behaviors, normal speech, affect was dysphoric and she reported that she is "not feeling well." She reported depression and anxiety, but denied thoughts of suicide, Denied thoughts of homicide, She denied hallucinations x 2 days now. She denied feeling paranoid, no difficulties with thought organization/coherent, limited insight Questionable judgment, oriented, minor difficulties with attention and concentration No evidence of gross impairment in short-term memory. Assessment: 58-year-old white female who presents with hallucinations in the context of benzodiazepine withdrawal. The patient was at [facility] emergency room before coming to [facility]'s emergency. She reported that [facility] emergency called security to have her expelled from the emergency room. 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 Chronic pain syndrome Treatment Plan: Reduce Gabapentin to 400 mg every 4 hours as needed for anxiety or for insomnia Reduce Librium to 75 mg for tonight and would be reevaluated tomorrow Reduce Haldol to 2 mg at bedtime Reduce Carisoprodol to 350 MG at bedtime discontinue Metoclopramide Ondansetron 4 mg Q8P PRN Sucralfate 1,000 MG BID Ibuprofen 600 mg Q4P PRN Levothyroxine Sodium 0.05 MG DAILY AC Ondansetron HCl 4 MG Q8P PRN Sucralfate 1,000 MG BID Treatment Plan: Gabapentin 600 mg every 4 hours as needed for anxiety or for insomnia Librium stays at 100 mg for tonight and would be reevaluated tomorrow Continue Haldol 5 mg at bedtime Carisoprodol 350 MG BID Chlordiazepoxide HCl 100 MG AT BEDTIME Gabapentin 600 MG Q4 HRS NEEDED PRN Haloperidol 5 MG AT BEDTIME Ibuprofen 600 MG Q4P PRN Levothyroxine Sodium 0.05 MG DAILY AC Lorazepam 2 MG Q6P PRN Lorazepam 2 MG Q6P PRN Magnesium Hydroxide 30 ML AT BEDTIME PRN Metoclopramide HCl 10 MG 4 TIMES/DAY PRN Ondansetron HCl 4 MG Q8P PRN Sucralfate 1,000 MG BID
[2018-07-20 19:39] VITALS: BP 127/74
[2018-07-21 07:58] VITALS: BP 104/74
--- NOTE | 2018-07-21 13:20 | SOCIAL WORKER PROG NOTE PSYCH ---
Social Work Progress Note Progress Note Concurrent review completed through the online [facility] portal and is listed as "pended." Pended Authorization # [id number] Client Authorization # [id number] Type of Request CONCURRENT
--- NOTE | 2018-07-21 16:49 | CP SOUTH PROGRESS NOTE PSYCH ---
Psych (Inpt) Progress Note Progress Note Include the following elements, when applicable: Involvement in the active treatment of the patient with behavioral observations of the patient and the patient's response to the treatment. Review of the ongoing treatment process in the context of the treatment plan. Indication of how multi-disciplinary staff members are carrying out the treatment plan. Plans for future interventions and recommendations for revision of the treatment plan. Liaison with other physicians/providers. Progress Note: Case and treatment plan discussed in team meeting. Staff reports that the patient presented here requesting a Xanax detox. Had been on 1 mg twice daily but somehow was taking 1 mg 3 times a day. Denying suicidal ideation. Appearing flat and irritable at times. Spends the day in her room and then comes out of on the unit on evening shift and watches TV. Medication list reviewed. The patient is a 58-year-old white woman admitted on 07/18/18. Patient was in group prior to meeting with me and SHERI student in the office. Patient seen at 12:15 PM. She is casually dressed and thin. Reports she came here because of Xanax withdrawal. States she is trying not to lose her home. Reports one daughter is and is due in October and her other daughter lost her son to DCF but then got him back. Patient feels overwhelmed by potential homelessness. States she has no income. 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 Reports that while having Xanax withdrawal, she hallucinated with auditory and visual hallucinations and she was talking to her older daughter who was not there. Last had this on . Currently feels okay. Has no complaints. Feels back to normal. Anticipates discharge tomorrow. Reports mood is not great but not bad. Rates sad mood 4/10 and anxiety 7/10. Denies feeling hopeless, helpless or worthless. She feels guilty for what she has put her kids through with her drug use. Denies active and passive suicidal ideation. Denies homicidal ideation. Denies auditory and visual hallucinations. Denies paranoid ideation and magical flower. Oriented 3 except gave the date as 07/20/18. Reports sleep is not too good but this is chronic. Reports she lost 20 pounds. Appetite is okay. Reports she is trying to gain weight. Had a cholecystectomy around February and had an umbilical hernia repair around March. Energy is not too great right now. Tolerating current medications well. IMPRESSION: Slow progress. Continue present treatment plan. We will reduce Librium to 50 mg nightly. Anticipate likely discharge tomorrow to home with referral to an IOP, possibly [facility].
[2018-07-21 20:01] VITALS: BP 117/66
[2018-07-22 07:18] VITALS: BP 114/74
--- NOTE | 2018-07-22 08:59 | SOCIAL WORKER PROG NOTE PSYCH ---
Social Work Progress Note Progress Note Late entry from 07/21/18: Maribel and this quality analyst/technical writer met in the afternoon. She shared that she was experiencing alot of stress over a possible foreclosure on her home. She has until September to possibly refinance. She is currently unemployed. She has a few people living in her home, but it seems that only 2 of them are contributing to rent. Her youngest daughter Kady is , who also happens to live with her and she is preparing for the babies arrival. Apparently Kady has asked her Mother to refrain from using Xanax at this point. This is what prompted Maribel to get detoxed from it. She reports that she is feeling pretty well at this point and feels ready to go home tomorrow. She is interested in getting VNS services in place. She had them in place once before and thought it was helpful. She is also open to going to dual IOP, but with her current medication I need to clarify if she is appropriate for our IOP. She stated she can do the morning track. She has barriers later in the day, as she helps her daughter get to work and back. She is open to having a family meeting with her daughter Kady. Her psychotic symptoms have improved. Besides abusing Xanax she has been drinking alcohol- 1-2 nips per day for the past couple of months. She has not been engaged in any treatment. Called clare Hillman and left a voicemail about having a family meeting Saturday.
--- NOTE | 2018-07-22 09:12 | SOCIAL WORKER PROG NOTE PSYCH ---
Ary JACOBSPayal Nelson 07/22/18 0911: Social Work Progress Note Progress Note Called [facility] to refer Maribel for daily media senior recruiter. Nursing will intake her tomorrow. Dr. Whyte and I met with Maribel she is ready to discharge today. Let her know that [facility] here at [place] will accept her if she continues the taper of the Librium and goes off her Soma. She was agreeable to those terms. She denies any AH/VH, SI/HI today. She reports sleep is poor, motivation/ energy okay. She denies any feelings of sadness, but feels slightly anxious today. She seems to be tolerating the detox from Xanax well, as she isn 't describing any withdrawal symptoms. She said she spoke with her daughter last night and her daughter is not available to come in in person for a meeting, but possibly by phone. We called her daughter together late morning. We reviewed her discharge plan. That was basically all the daughter was interested in knowing at this time. She wanted to ensure she was no longer delirious. I told her she is stable to leave the hospital at this time and will be monitored going forward at [facility]. Maribel will be calling a friend to come and pick her up today. Intake was scheduled at [facility] for tomorrow at 11:30am. Left the hospital about 12:30pm.
[2018-07-22] MEDS ORDERED: CHLORDIAZEPOXID25 M3 PO (11:54)
[2018-07-22] MEDS ORDERED: ZOFRAN4 M2 PO (11:56)
[2018-07-22] MEDS ORDERED: CARAFATE1 G1 PO (11:57)
--- NOTE | 2018-07-22 12:05 | Patient Discharge Instructions ---
Psych Discharge Inst General Discharge Information Reason for Admission: Hallucinations in the context of benzodiazepine overuse and withdrawal. Psy Discharge Primary Diag+ Psychosis related to benzodiazepine withdrawal Psy Discharge Secondary Diag+ Benzodiazepine use d/o Chronic pain Arthritis Hx multiple falls Hypothyroidism Hx acid reflux Summary Tests/Major Procedures Lab ALT 20 U/L 07/17/185 AST 23 U/L 07/17/185 Calcium 8.8 mg/dL 07/17/182254 Chloride 108 mmol/L H 07/17/185 Cholesterol 202 MG/DL H 07/20/18 0521 Cholesterol/HDL Ratio 3 % 07/20/18520 HDL Cholesterol 70 mg/dL H 07/20/18 05 Hemoglobin A1c 5.1 % 07/20/18520 LDL Cholesterol, Calc 103 mg/dL 07/20/18520 Potassium 3.0 mmol/L L 07/17/182254 Triglycerides 149 mg/dL 07/20/18520 Absolute Lymphocytes 1.0 /CUMM L 07/17/182254 Hct 35.0 % L 07/17/185 Hgb 11.7 G/DL L 07/17/185 MCH 31.4 PG H 07/17/18 2255 Monocytes % 14.9 % H 07/17/18 2255 Plt Count 270 /CUMM 07/17/185 RBC 3.74 /CUMM L 07/17/185 RDW 15.3 % H 07/17/185 WBC 3.3 /CUMM L 07/17/18 2255 Serum Alcohol < 10.0 MG/DL 07/17/18 2255 U Benzodiazepines Scrn > 800 NG/ML H 07/18/18 0249 Studies Pending at [facility]: glycohemoglobin, TSH (reflex), repeat CBC, electrolytes. Patient Instructions Contact Information Your Psychiatrist on [facility] was Judah Whyte MD * If you are experiencing an emergency related to this hospitalization, please call [phone] to contact the treating psychiatrist or the psychiatrist-on- call. * To Request a copy of your medical records, please contact the Medical Records Department at [phone]. * To request results of studies pending at the time of discharge, please call [phone]. * Continue your Medications until directed to stop by your Healthcare provider. General Medication Information Please continue to take your new medications and your continued home medications , unless otherwise indicated on your discharge medication list, or unless directed by your MD or IT SUPPORT ANALYST to stop them. Special Instructions Diet Regular Activity Normal Other Inst/Recommendations See PCP about abnormal labs. Stay away from alcohol & addictive meds. - Tobacco Use Treatment Offered Post DC Medications Offered: Refused Tob Medication Tx Post DC Tobacco Treatment Plan: [facility] Tobacco Tx Pgm Program Appt Date: 07/30/18 Program Appt Time: 1600 - EtOH/Drug Use D/O Treatment Offered Post DC Medications Offered: Med Not Indicated for D/O Post DC EtOH/SubAbuse TX Plan: [facility] SubAbuse/Dual IOP Program Appt Date: 07/23/18 Program Appt Time: 1130 Metabolic Screening ([x]) Not Applicable, patient not on a neuroleptic. OR () Patient on a neuroleptic(s) . Enter below results for Hemoglobin A1C, and lipid panel if obtained during the last 365 days. BMI: 18.500 Blood Pressure: 114/74 Laboratory Results From [place] EHR (If applicable): Advance Directives Does the Patient have Medical Advance Directives No/Per pt req info given Does Pt have Psychiatric Advance Directives? No/Per pt req info provid Does Patient have a Designated Surrogate Decision Maker: No Information About Psychiatric Advance Directives Provided? Refused Discharge Plan Post Hospital Treatment Plan: Returning to home. Referred to [facility] intake tomorrow.
[2018-07-22 12:58] LABS: ABSOLUTE BASOPHIL COUNT 0 /CUMM (0.0-0.2); ABSOLUTE EOSINOPHIL COUNT 0 /CUMM (0.0-0.7); ABSOLUTE MONOCYTE COUNT 0.5 /CUMM (0.10-0.60); BASOPHIL % 0.2 % (0.0-2.0); EOSINOPHIL % 0.9 % (0-5); GRANULOCYTE % 72.2 % (42.2-75.2); HEMATOCRIT 36.7 % (37-47); MEAN CORPUSCULAR HGB 31.2 PG (27.0-31.0); MEAN CORPUSCULAR HGB CONC 32.8 G/DL (33.0-37.0); MEAN CORPUSCULAR VOLUME 95.2 FL (81.0-99.0); MEAN PLATELET VOLUME 8.6 FL (7.4-10.4); PLATELET COUNT 317 /CUMM (130-400); RBC DISTRIBUTION WIDTH 15.3 % (11.5-14.5); RED BLOOD CELL CT 3.86 /CUMM (4.20-5.40)
[2018-07-22 12:59] LABS: WHITE BLOOD CELL COUNT 5.5 /CUMM (4.8-10.8)
--- NOTE | 2018-07-22 16:22 | SOCIAL WORKER PROG NOTE PSYCH ---
Social Work Progress Note Faxed Referral(s) Referred To: [facility] Transition of Care Documents sent: Health Summary, W10 Faxed to: [facility] Fax #: [phone] Faxed by: Maryan Mcallister Date faxed: 07/22/18 Time Faxed: [phone]
--- NOTE | 2018-07-22 16:44 | CP SOUTH PROGRESS NOTE PSYCH ---
Psych (Inpt) Progress Note Progress Note Include the following elements, when applicable: Involvement in the active treatment of the patient with behavioral observations of the patient and the patient's response to the treatment. Review of the ongoing treatment process in the context of the treatment plan. Indication of how multi-disciplinary staff members are carrying out the treatment plan. Plans for future interventions and recommendations for revision of the treatment plan. Liaison with other physicians/providers. Progress Note: Case and treatment plan discussed in team meeting. Staff reports that the patient is denying suicidal ideation. Complained of nausea and vomited once. Patient seen at 10:43 AM with social work faculty member and with medical student. Patient appears awake and alert. Thinking is clear, logical and goal-directed. Affect is calm and euthymic. Mood is good. Rates sad mood 0/10 and anxiety 5/10. Denies feeling hopeless, helpless or worthless. Does feel guilty. Denies active and passive suicidal ideation. Denies homicidal ideation. Denies auditory and visual hallucinations. Since psychosis has resolved, we will now stop Haldol. Denies paranoid ideation and magical flower. Denies benzodiazepine withdrawal. Patient understands that for her to attend IOP, IOP staff has stipulated that she must come off of Soma and agree to a Librium taper to off. She agreed to both of these stipulations. Reports sleep was poor. Asking about Seroquel for sleep but she was advised to discuss this with her IOP provider. In the meantime, she was advised to use Neurontin prn for insomnia. Appetite is good. Reports energy is okay but not what it should be. Tolerating medications well. Feels ready and safe for discharge. Patient was advised to avoid drugs, including addictive medications, and alcohol. IMPRESSION: Condition improved. Okay for discharge today to home with referral to IOP intake tomorrow.
--- NOTE | 2018-07-22 17:10 | DISCHARGE SUMMARY REPORT-PSYCH ---
Visit Information Visit Dates/Diagnosis' Admission Date: 07/18/18 Discharge Date: 07/22/18 Reason for Admission: Hallucinations in the context of benzodiazepine overuse and withdrawal. 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 Psy Discharge Secondary Diag: Benzodiazepine use d/o Chronic pain Arthritis Hx multiple falls Hypothyroidism Hx acid reflux Hospital Course Significant Lab Findings: Lab ALT 20 U/L 07/17/185 AST 23 U/L 07/17/182254 Calcium 8.8 mg/dL 07/17/182254 Chloride 108 mmol/L H 07/17/18 2255 Cholesterol 202 MG/DL H 07/20/1821 Cholesterol/HDL Ratio 3 % 07/20/18520 HDL Cholesterol 70 mg/dL H 07/20/18 05 Hemoglobin A1c 5.1 % 07/20/1821 LDL Cholesterol, Calc 103 mg/dL 07/20/1821 Potassium 3.0 mmol/L L 07/17/182254 Triglycerides 149 mg/dL 07/20/1821 Absolute Lymphocytes 1.0 /CUMM L 07/17/185 Hct 35.0 % L 07/17/185 Hgb 11.7 G/DL L 07/17/185 MCH 31.4 PG H 07/17/18 2255 Monocytes % 14.9 % H 07/17/182254 Plt Count 270 /CUMM 07/17/185 RBC 3.74 /CUMM L 07/17/185 RDW 15.3 % H 07/17/18 2255 WBC 3.3 /CUMM L 07/17/18 2255 Serum Alcohol < 10.0 MG/DL 07/17/18 2255 U Benzodiazepines Scrn > 800 NG/ML H 07/18/18 0249 Lab Anion Gap 7 07/22/18 1211 Carbon Dioxide 28 mmol/L 07/22/18 1211 Chloride 102 mmol/L 07/22/18 1211 Hemoglobin A1c 5.1 % 07/22/18 1211 Potassium 4.4 mmol/L 07/22/18 1211 Sodium 137 mmol/L 07/22/18 1211 TSH &T3 &Free T4 Intrp 3.850 uIU/mL 07/22/18 1211 Absolute Lymphocytes 1.0 /CUMM L 07/22/18 1211 Hct 36.7 % L 07/22/18 1211 Hgb 12.0 G/DL 07/22/18 1211 Lymphocytes % 17.9 % L 07/22/18 1211 MCH 31.2 PG H 07/22/18 1211 MCHC 32.8 G/DL L 07/22/18 1211 Plt Count 317 /CUMM 07/22/18 1211 RBC 3.86 /CUMM L 07/22/18 1211 RDW 15.3 % H 07/22/18 1211 WBC 5.5 /CUMM 07/22/18 1211 SERVICE DATE: 07/18/18 EXAM TYPE: CAT - CT HEAD WO IV CONTRAST EXAMINATION: CT HEAD WITHOUT CONTRAST CLINICAL INFORMATION: Mental status change. Trauma. COMPARISON: July 13, 2018. TECHNIQUE: Contiguous helical images of the brain were obtained without IV contrast. Multiplanar reconstructions were performed. DLP: 609 mGy-cm. FINDINGS: There are no pathologic extra-axial fluid collections. The lateral, third, fourth ventricles are nondilated and concordant with the appearance of the sulci. There is no evidence for acute intraparenchymal hemorrhage or infarct. There is neither mass nor mass effect. There is no shift of midline structures. The paranasal sinuses and mastoid air cells are clear. There are no osseous lesions. IMPRESSION: No evidence for acute intracranial injury. Course Complications: None. Consultations: The patient was seen by Dr. Lester Larsen for admission H&P. He noted on : "Assessment: Impression/Plan: #Benzodiazepine (Xanax) Dependence and Withdrawal- with hallucinations. The patient has history of anxiety and long history of benzo use. Has been taking extra medication due to increased stressors (?losing home, etc.). When she ran out of Xanax, she began drinking more alcohol. Has had multiple falls and family is concerned. Also was taking Soma. Plan: Will admit to [facility]/Psychiatry. Detox - ? Ativan/Librium. #Depression- the patient denied depression, however chart implied that the family is concerned. Plan: Will follow on psychiatry. #Chronic Pain- the patient states she has rheumatoid and osteoarthritis. Has not seen a complaint clerk. Concern regarding potential opioid dependence. She does have some neck spasm. Plan: Will avoid narcotics/etc. Tylenol prn. Consider Gabapentin? #Arthritis- patient states rheumatoid arthritis in addition to osteoarthritis, however has not seen complaint clerk. Plan: Consider rheumatology referral as OP. #S/P Multiple Falls- appeared steady on her feet during exam. Assume gait instability is due to intoxication. Plan: Will observe ambulation on [facility]." Allergies: Coded Allergies: venom-honey bee (bee venom (honey bee)) (Severe, ANAPHYLAXIS 04/30/18) ketorolac (From TORADOL) (ITCHING 04/30/18) Hospital Course/TX Response: The patient was monitored on the unit for safety, substance withdrawal, psychosis and mood disturbance. She participated in multi-modal treatments on the unit. Benzodiazepine was switched from Xanax to Librium. She has tolerated reduction in Librium well thus far. Haldol was used for psychotic symptoms but tapered to off, as psychosis has remitted. Patient is stopping Soma as a stipulation for attending Dual IOP. Levothyroxine, Sucralfate and prn Zofran were continued. Progress note from date of discharge, 07/22/18: "Case and treatment plan discussed in team meeting. Staff reports that the patient is denying suicidal ideation. Complained of nausea and vomited once. Patient seen at 10:43 AM with social media manager and with medical student. Patient appears awake and alert. Thinking is clear, logical and goal-directed. Affect is calm and euthymic. Mood is good. Rates sad mood 0/10 and anxiety 5/10. Denies feeling hopeless, helpless or worthless. Does feel guilty. Denies active and passive suicidal ideation. Denies homicidal ideation. Denies auditory and visual hallucinations. Since psychosis has resolved, we will now stop Haldol. Denies paranoid ideation and magical flower. Denies benzodiazepine withdrawal. Patient understands that for her to attend IOP, IOP staff has stipulated that she must come off of Soma and agree to a Librium taper to off. She agreed to both of these stipulations. Reports sleep was poor. Asking about Seroquel for sleep but she was advised to discuss this with her IOP provider. In the meantime, she was advised to use Neurontin prn for insomnia. Appetite is good. Reports energy is okay but not what it should be. Tolerating medications well. Feels ready and safe for discharge. Patient was advised to avoid drugs, including addictive medications, and alcohol. IMPRESSION: Condition improved. Okay for discharge today to home with referral to IOP intake tomorrow." Discharge HBIPS - Tobacco Use Treatment Offered Post DC Medications Offered: Refused Tob Medication Tx Post DC Tobacco Treatment Plan: [facility] Tobacco Tx Pgm Program Appt Date: 07/30/18 Program Appt Time: 1600 - EtOH/Drug Use D/O Treatment Offered Post DC Medications Offered: Med Not Indicated for D/O Post DC EtOH/SubAbuse TX Plan: [facility] SubAbuse/Dual IOP Program Appt Date: 07/23/18 Program Appt Time: 1130 Metabolic Screening - Screen if on a Neuroleptic Medication - Metabolic screening should include: - Blood Pressure, BMI, Glucose or Hgb A1c, & a - Lipid profile from within the past 365 days. Metabolic Screening ([x]) Not Applicable, patient not on a neuroleptic. OR () Patient on a neuroleptic(s) . Enter below results for Hemoglobin A1C, and lipid panel if obtained during the last 365 days. BMI: 18.500 Blood Pressure: 114/74 Laboratory Results From [facility] (If applicable): Discharge Instructions General Discharge Information Multiple Neuroleptics: ([x]) Not Applicable OR Document below three failed attempts at monotherapy, or a plan to taper to monotherapy, or augmentation of Clozapine. () Discharge Diet Regular Discharge Activity Normal DC Disposition: Returning to home. Referrals Ordered Referrals INTENSIVE OUTPT PSY-SUBSTANCE 07/23/18 [address] [place] [id number] Intake for [facility] 08/23/18 11:30am [address] [id number] Provider Referral For Groups: [[facility]] [facility] for med administration daily will start 07/22/18 or 07/23/18 pending nursing availability Provider Referral 07/30/18 For Groups: Outpatient Psychiatry [facility]oking Cessation [facility] 07/30/18 4pm [address] [place] [id number] Prescriptions Stop taking the following medications: Alprazolam (Xanax) 1 MG TABLET ORAL TWICE DAILY Qty = 28 Carisoprodol (Carisoprodol) 350 MG TABLET ORAL TWICE DAILY Metoclopramide HCl (Reglan) 10 MG TABLET ORAL 4 TIMES A DAY as needed for NAUSEA Continue taking these medications: Levothyroxine Sodium (Levothyroxine Sodium) 50 MCG TABLET 1 Tablet ORAL DAILY BEFORE BREAKFAST Qty = 30 Comments: Last Taken: Time:Last Taken:07/22 7AM Dicyclomine HCl (Dicyclomine HCl) 20 MG TABLET 1 Tablet ORAL TWICE DAILY as needed for ABD PAIN Comments: Last Taken: Time:NOT TAKEN THIS ADMISSION Diphenoxylate HCl/Atropine (Lomotil 2.5-0.025 MG Tablet) 2.5 MG-0.025 MG TABLET 1 Tablet ORAL 4 TIMES A DAY as needed for DIARRHEA Comments: Last Taken:NOT TAKEN THIS ADMISION Time:NOT TAKEN THIS ADMISSIN Methotrexate (Methotrexate) 2.5 MG TABLET 5 Tablet ORAL EVERY SATURDAY Comments: Last Taken: Time:NOT TAKEN THIS ADMISSION Famotidine (Famotidine) 20 MG TABLET 20 Milligram ORAL as needed for DYSPEPSIA Comments: Last Taken:NOT TAKEN THI ADM Time: Ondansetron HCl (Zofran) 4 MG TABLET 1 Tablet ORAL EVERY 8 HOURS NEEDED as needed for nausea/vomiting Comments: Last Taken:07/22/18 Time:9AM Sucralfate (Carafate) 1 GRAM TABLET 1 Tablet ORAL TWICE DAILY Comments: Last Taken:07/22/18 Time:09AM Start taking the following new medications: Chlordiazepoxide HCl (Chlordiazepoxide HCl) 25 MG CAPSULE 2 Capsule ORAL AT BEDTIME Qty = 14 No Refills Comments: Last Taken:NOT TAKEN THIS ADM Time: Other Inst/Recommendations See PCP about abnormal labs. Stay away from alcohol & addictive meds. Studies Pending at Discharge None. Copies To: Intensive Outpt Psy-Substance; Isabelle PAULSON,Jeri
--- NOTE | 2018-07-22 18:22 | IP INCIDENTAL NOTE PSYCH ---
Incidental Note Notation: Call received from [facility]. Librium not in stock there. eRx sent to [facility] for: chlordiazepoxide 25 mg capsule : Take 2 capsule by mouth at bedtime Disp. 14 NR (last: 07/22/2018 ) by ERNESTO started on: 07/22/2018 stop on: 07/29/2018
== END 2018-07-22 12:39 | DRG 776 ==
LOC: ERH 21:15 → ERHI 07-18 20:38 → CP SOUTH 07-18 20:38 → ENTRNSPT 07-18 22:19 → EDTRNSPTSTS 07-18 22:23 → EDTRNSPT 07-18 22:23 → CMPTRNSPT 07-18 22:47 → CP SOUTH 07-18 22:51
PROVIDERS: Emergency Medicine; Psychiatry & Neurology Psychiatry
DX: F13.239 Sedative, hypnotic or anxiolytic dependence with withdrawal, unspecified (principal); E03.9 Hypothyroidism, unspecified; Z91.81 History of falling; K21.9 Gastro-esophageal reflux disease without esophagitis; M19.90 Unspecified osteoarthritis, unspecified site; G89.29 Other chronic pain
CPT/HCPCS: 36415; 80307; 96374; G0463; G0480; J2405; J3101

== ENCOUNTER 2018-08-19 08:35 | Observation (INO) | payer OTHER ==
[~2018-08-19] VITALS: Ht 157.5 cm; Wt 48.3 kg
[~2018-08-19 08:35] MED LIST changes: +CARISOPRODOL350 M1 PO; +CHLORDIAZEPOXID25 M3 PO; +FAMOTIDINE20 M1 PO
--- NOTE | 2018-08-19 09:53 | ED GI/GU/ABDOMINAL COMPLAINT ---
History of Present Illness General Chief Complaint: Abdominal Pain/Flank Pain Stated Complaint: LOWER ABDOMINAL PAIN, +N, X 1 DAY Source: patient, old records Exam Limitations: no limitations Allergies Coded Allergies: venom-honey bee (bee venom (honey bee)) (Severe, ANAPHYLAXIS 04/30/18) ketorolac (From TORADOL) (ITCHING 04/30/18) Reconcile Medications Alprazolam 1 MG TABLET 1 TAB PO QPM SLEEP (Reported) Levothyroxine Sodium 50 MCG TABLET 1 TAB PO DAILY AC THYROID (Reported) Oxycodone HCl/Acetaminophen (Percocet 5-325 MG Tablet) 5 MG-325 MG TABLET 1-2 TAB PO Q6H PRN postop pain Quetiapine Fumarate 300 MG TABLET 2 TAB PO QPM MENTAL HEALTH (Reported) Quetiapine Fumarate 25 MG TABLET 1 TAB PO BIDP PRN MENTAL HEALTH (Reported) Triage Note: RLQ PAIN THAT RADIATES INTO BACK SINCE YESTERDAY. STATES PAIN IS ALL OVER TODAY. PT C/O NAUSEA BUT NO VOMITING OR DIARRHEA Triage Nurses Notes Reviewed? yes ? n Is pt currently ? No Onset: Gradual Duration: day(s): Timing: recent history Quality/Severity: moderate Severity Numbers: 8 Location: right lower quadrant Radiation: back HPI: 58-year-old female presents to emergency department complaining of right lower quadrant abdominal pain beginning yesterday. Patient states the pain began as right lower quadrant yesterday, today pain is radiating towards her back and towards her left lower quadrant. Patient reports associated nausea. Last bowel movement was yesterday and normal. Patient last ate yesterday, today she has no appetite. Patient denies urinary symptoms, fevers, chills, vomiting, diarrhea. (Germaine WADE,Chasidy Hillman) Vital Signs & Intake/Output Vital Signs & Intake/Output Vital Signs Date Time Temp Pulse Resp B/P B/P Pulse O2 O2 Flow FiO2 Mean Ox Delivery Rate 08/20 0633 97.6 82 19 102/70 92 08/20 0232 97.5 82 19 97/62 96 08/20 0036 98.0 88 19 89/63 95 08/19 2213 97.6 77 19 147/102 97 Nasal 2.0L Cannula 08/19 2033 97.8 84 18 150/90 95 Nasal 2.0L Cannula 08/19 1551 97.9 18 95 Room Air 08/19 1540 148/80 08/19 1354 98.0 97 20 118/74 96 Room Air 08/19 1109 97.1 98 18 112/78 95 Room Air 08/19 1104 95 Room Air 08/19 0840 97.5 99 20 116/81 95 Room Air ED Intake and Output 08/20 0000 08/19 1200 Intake Total 420 0 Output Total 800 Balance -380 0 Intake, IV 300 Intake, Oral 120 0 Output, Urine 800 Patient 106 lb 105 lb Weight Weight Reported by Patient Measurement Method (María PAULSON,Melo Gibson) Past History Travel History Traveled to [place] past 21 day No Medical History Any Pertinent Medical History? see below for history Neurological: NONE EENT: ALLERGIES- SEASONAL; BEES (seasonal allergies) Cardiovascular: NONE Respiratory: NONE Gastrointestinal: colitis, ACID REFLUX Hepatic: cholelithiasis Renal: NONE Musculoskeletal: osteoarthritis, rheumatoid arthritis (STATES RA- HOWEVER ? 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 SHE HAS 2 CHILDREN WHO ARE ALIVE AND WELL. UNKNOWN BIOLOGICAL FAMILY HISTORY). Hx Contributory? No (Chasidy Guajardo) Review of Systems Review of Systems Constitutional: Reports: no symptoms. EENTM: Reports: no symptoms. Respiratory: Reports: no symptoms. Cardiovascular: Reports: no symptoms. GI: Reports: see HPI. Genitourinary: Reports: no symptoms. Musculoskeletal: Reports: no symptoms. Skin: Reports: no symptoms. Neurological/Psychological: Reports: no symptoms. Hematologic/Endocrine: Reports: no symptoms. Immunologic/Allergic: Reports: no symptoms. All Other Systems: Reviewed and Negative (Chasidy Guajardo) Physical Exam Physical Exam General Appearance: well developed/nourished, no apparent distress, alert, awake Head: atraumatic, normal appearance Eyes: Bilateral: normal appearance. Ears, Nose, Throat, Mouth: hearing grossly normal Neck: normal inspection, supple, full range of motion Respiratory: normal breath sounds, no respiratory distress, lungs clear Cardiovascular: regular rate/rhythm Gastrointestinal: normal bowel sounds, soft, RLQ and LLQ tenderness with gaurding and rebound tenderness, -Rosving's sign Back: normal inspection, normal range of motion Extremities: normal range of motion Neurologic/Psych: awake, alert, oriented x 3 Skin: intact, normal color, warm/dry Core Measures ACS in differential dx? No Sepsis Present: No Sepsis Focused Exam Completed? No (Germaine WADE,Chasidy Hillman) Progress Differential Diagnosis: appendicitis, bowel obstruction, colon cancer, diverticulitis, gastritis, hernia, inflamm bowel dis, kidney stone, ovarian cyst , SBO, UTI/pyelo Diagnostic Imaging: Viewed by Me: CT Scan. Discussed w/RAD: CT Scan. Radiology Impression: PATIENT: DOUG MCKEON PRESENT AGE: 58 PATIENT ACCOUNT NO: [id number] : 60 LOCATION: [facility] ORDERING PHYSICIAN: Chasidy WADE SERVICE DATE: 08/19/18-1007 EXAM TYPE: CAT - CT ABD & PELVIS W IV CONTRAST EXAMINATION: CT ABDOMEN AND PELVIS WITH CONTRAST CLINICAL INFORMATION: Right lower quadrant and left lower quadrant abdominal pain, nausea. COMPARISON: CT of the abdomen and pelvis done on 05/29/2018. TECHNIQUE: Multidetector volumetric imaging was performed of the abdomen and pelvis following IV administration of 95 mL of Optiray 320 intravenous contrast. Sagittal and coronal reformatted images were obtained on the technologist's workstation. DLP: 238.41 mGy-cm FINDINGS: LUNG BASES: The visualized lung bases are unremarkable. LIVER, GALLBLADDER, AND BILIARY TREE: The liver is normal in size, shape, and attenuation. No focal hepatic lesion or biliary ductal dilatation is present. Mild central intrahepatic biliary ductal dilatation is noted. The common bile duct measures 1.3 cm at the level of the head of the pancreas however, appears stable since 05/29/2018. The gallbladder is surgically absent. PANCREAS: Unremarkable SPLEEN: Unremarkable ADRENAL GLANDS: Unremarkable KIDNEYS AND URETERS: The kidneys are normal in size, shape, and attenuation. No hydronephrosis, hydroureter, or calculi seen. No perinephric stranding. BLADDER: Unremarkable GASTROINTESTINAL TRACT: Significant fecal residual is noted throughout the entire large bowel from cecum to the rectum. The appendix is visualized, shows tiny intraluminal hyperdense material, likely representing appendicolith. Trace amount of fluid is also noted around the appendix specifically near the tip (see the mattson images). The finding would be unlikely for appendicitis however, early subtle appendicitis, especially involving the tip is not excluded. ABDOMINAL WALL: No significant hernia is appreciated. LYMPH NODES: Normal VASCULAR: Unremarkable PELVIC VISCERA: There is trace amount of free fluid noted within the pelvis. There is no pelvic mass present. There is no free air seen. OSSEOUS STRUCTURES: No suspicious lytic or sclerotic abnormality is present. IMPRESSION: 1. Mild intrahepatic as well as extrahepatic biliary ductal dilatation in this patient with prior cholecystectomy, appears unchanged since 05/29/2018. 2. Evidence of appendicolith and trace amount of fluid around the tip of the appendix, new finding since 05/29/2018. Intrinsically the appendix appears unremarkable. Possibility of early stage tip appendicitis is not excluded. 3. Significant fecal residual throughout the entire large bowel, new finding since prior study. 4. Trace amount of free fluid within the pelvis, new finding since prior study. DICTATED BY: Yaquelin Squires MD DATE/TIME DICTATED:08/19/181218 AUTOMATIC CHIEF:ANGEL DATE/TIME TRANSCRIBED:1218 CONFIDENTIAL, DO NOT COPY WITHOUT APPROPRIATE AUTHORIZATION. < Electronically signed in Other Vendor System> SIGNED BY: Yaquelin Squires MD 08/19/18 1244 Initial ED EKG: none (Germaine WADE,Chasidy Hillman) Plan of Care: Orders Procedure Date/time Status Regular Diet 08/20 B Active Discharge Patient 08/20 UNK Active Clear Liquid Diet 08/19 D Complete Wound Care/Dressing 08/19 2309 Active Vital Signs 08/19 2303 Active Teach/Educate 08/19 2303 Active Pain Treatment and Response 08/19 2303 Active Nutritional Intake, Monitor 08/19 2303 Active Isolation 08/19 2303 Active Intake & Output 08/19 2303 Active Patient Care Conference 08/19 2303 Active Activity/Ambulation 08/19 2303 Active Pathway - chart 08/[address] in observation 08/19 1914 Active Patient Data 08/19 1914 Active Code Status 08/19 1914 Active PATHOLOGY SPECIMEN 09/25 1819 Active FingerStick- Glucose 08/19 1534 Complete Add-on Test (ER Only) 08/19 1510 Active Patient Data 08/19 1457 Active PARTIAL THROMBOPLASTIN TIME 08/19 1439 Complete PROTHROMBIN TIME 08/19 1439 Complete EKG 08/19 1439 Active TYPE & SCREEN (NOT X-MATCH) 08/19 1439 Complete Intake & Output 08/19 1104 Active URINALYSIS 08/19 0952 Complete LIPASE 08/19 0952 Complete LACTIC ACID 08/19 0952 Complete COMPREHENSIVE METABOLIC PANEL 08/19 0952 Complete CBC WITHOUT DIFFERENTIAL 08/[address] in observation 08/19 UNK Active VTE Mechanical Prophylaxis 08/19 UNK Active Vital Signs 08/19 UNK Active Intake & Output 08/19 UNK Complete Activity/Ambulation 08/19 UNK Active Current Medications Sig/Catarino Start time Last Medication Dose Stop Time Status Admin Levothyroxine Sodium 0.05 MG DAILY AC 08/20 0700 AC 08/20 (Synthroid) 0442 Omeprazole 40 MG DAILY AC 08/20 0700 AC 08/20 (Prilosec) 0442 Heparin Sodium 5,000 UNIT Q8 08/19 2200 AC 08/20 (Porcine) 0442 Quetiapine Fumarate 600 MG QPM 08/19 2100 AC 08/19 (Seroquel) 2150 Alprazolam 1 MG AT BEDTIME NEED.. 08/19 1930 AC (Xanax) 08/26 1929 Acetaminophen 650 MG Q6P PRN 08/19 1915 AC (Tylenol) Morphine Sulfate 4 MG Q4P PRN 08/19 1915 AC 08/20 (MORPHINE SULFATE) 075 Ondansetron HCl 4 MG Q6P PRN 08/19 1915 AC (Zofran) Oxycodone/ 1 TAB Q4P PRN 08/19 1915 AC Acetaminophen (Percocet) Oxycodone/ 2 TAB Q4P PRN 08/19 1915 AC Acetaminophen (Percocet) Promethazine HCl 12.5 MG Q6P PRN 08/19 1915 AC (Phenergen) 08/26 1914 Laboratory Tests 08/19/18 1252: Lactic Acid Cancelled 08/19/18 1208: Urine Color YEL, Urine Clarity CLEAR, Urine pH 6.5, Ur Specific [place] 1.025, Urine Protein NEG, Urine Ketones NEG, Urine Nitrite NEG, Urine Bilirubin NEG, Urine Urobilinogen 0.2, Ur Leukocyte Esterase NEG, Ur Microscopic EXAM NOT REQUIRED, Urine Hemoglobin NEG, Urine Glucose NEG 08/19/18 1023: Anion Gap 8, Estimated GFR > 60, BUN/Creatinine Ratio 24.3, Glucose 92, Lactic Acid 0.7, Calcium 9.1, Total Bilirubin 0.2, AST 23, ALT 20, Alkaline Phosphatase 85, Total Protein 6.5, Albumin 3.8, Globulin 2.7, Albumin/Globulin Ratio 1.4, Lipase 24, PT 10.4, INR 0.95, APTT 29, CBC w Diff NO MAN DIFF REQ, RBC 3.74 L, MCV 93.8, MCH 31.1 H, MCHC 33.1, RDW 14.9 H, MPV 8.4, Gran % 81.3 H, Lymphocytes % 11.0 L, Monocytes % 5.7, Eosinophils % 1.6, Basophils % 0.4, Absolute Granulocytes 5.0, Absolute Lymphocytes 0.7 L, Absolute Monocytes 0.3, Absolute Eosinophils 0.1, Absolute Basophils 0 1:50 PM - spoke with Dr. Tapia regarding CT scan findings. He recommends evaluation by surgical PA. Decision made by surgical team for appendectomy today in the OR. Patient's vital signs are stable, she is in no acute distress. IV Unasyn given. (Chasidy Guajardo) (María PAULSON,Melo Gibson) Departure Departure Disposition: STILL A PATIENT Condition: Stable Clinical Impression Primary Impression: Appendicitis Referrals: Jeri Walton MD (PCP/Family) Departure Forms: Customer Survey General Discharge Information Prescriptions: Current Visit Scripts Oxycodone HCl/Acetaminophen (Percocet 5-325 MG Tablet) 1-2 TAB PO Q6H PRN postop pain #24 TAB OR/GI Note Spoke With: Willie PAULSON,Khanh Contreras ED Treatment Decision: DOUG MCKEON requires urgent operative management or an emergent procedure that cannot be performed in the Emergency Room setting. Transport To: [facility] (Chasidy Guajardo) PA/DUTY OFFICER Co-Sign Statement Statement: ED Attending supervision documentation- [] I saw and evaluated the patient. I have also reviewed all the pertinent lab results and diagnostic results. I agree with the findings and the plan of care as documented in the PA's/DUTY OFFICER's documentation. [x] I have reviewed the ED Record and agree with the PA's/DUTY OFFICER's documentation. [] Additions or exceptions (if any) to the PAs/DUTY OFFICER's note and plan are summarized below: [] (María PAULSON,Melo Gibson)
[2018-08-19 10:33] LABS: ABSOLUTE BASOPHIL COUNT 0 /CUMM (0.0-0.2); ABSOLUTE EOSINOPHIL COUNT 0.1 /CUMM (0.0-0.7); ABSOLUTE LYMPH COUNT 0.7 /CUMM (1.2-3.4); ABSOLUTE MONOCYTE COUNT 0.3 /CUMM (0.10-0.60); BASOPHIL % 0.4 % (0.0-2.0); EOSINOPHIL % 1.6 % (0-5); GRANULOCYTE % 81.3 % (42.2-75.2); HEMATOCRIT 35.1 % (37-47); MEAN CORPUSCULAR HGB 31.1 PG (27.0-31.0); MEAN CORPUSCULAR HGB CONC 33.1 G/DL (33.0-37.0); MEAN CORPUSCULAR VOLUME 93.8 FL (81.0-99.0); MEAN PLATELET VOLUME 8.4 FL (7.4-10.4); PLATELET COUNT 274 /CUMM (130-400); RBC DISTRIBUTION WIDTH 14.9 % (11.5-14.5); RED BLOOD CELL CT 3.74 /CUMM (4.20-5.40); WHITE BLOOD CELL COUNT 6.1 /CUMM (4.8-10.8)
--- NOTE | 2018-08-19 12:44 | CT SCAN REPORT ---
EXAMINATION: CT ABDOMEN AND PELVIS WITH CONTRAST CLINICAL INFORMATION: Right lower quadrant and left lower quadrant abdominal pain, nausea. COMPARISON: CT of the abdomen and pelvis done on 05/29/2018. TECHNIQUE: Multidetector volumetric imaging was performed of the abdomen and pelvis following IV administration of 95 mL of Optiray 320 intravenous contrast. Sagittal and coronal reformatted images were obtained on the technologist's workstation. DLP: 238.41 mGy-cm FINDINGS: LUNG BASES: The visualized lung bases are unremarkable. LIVER, GALLBLADDER, AND BILIARY TREE: The liver is normal in size, shape, and attenuation. No focal hepatic lesion or biliary ductal dilatation is present. Mild central intrahepatic biliary ductal dilatation is noted. The common bile duct measures 1.3 cm at the level of the head of the pancreas however, appears stable since 05/29/2018. The gallbladder is surgically absent. PANCREAS: Unremarkable SPLEEN: Unremarkable ADRENAL GLANDS: Unremarkable KIDNEYS AND URETERS: The kidneys are normal in size, shape, and attenuation. No hydronephrosis, hydroureter, or calculi seen. No perinephric stranding. BLADDER: Unremarkable GASTROINTESTINAL TRACT: Significant fecal residual is noted throughout the entire large bowel from cecum to the rectum. The appendix is visualized, shows tiny intraluminal hyperdense material, likely representing appendicolith. Trace amount of fluid is also noted around the appendix specifically near the tip (see the mattson images). The finding would be unlikely for appendicitis however, early subtle appendicitis, especially involving the tip is not excluded. ABDOMINAL WALL: No significant hernia is appreciated. LYMPH NODES: Normal VASCULAR: Unremarkable PELVIC VISCERA: There is trace amount of free fluid noted within the pelvis. There is no pelvic mass present. There is no free air seen. OSSEOUS STRUCTURES: No suspicious lytic or sclerotic abnormality is present. IMPRESSION: 1. Mild intrahepatic as well as extrahepatic biliary ductal dilatation in this patient with prior cholecystectomy, appears unchanged since 05/29/2018. 2. Evidence of appendicolith and trace amount of fluid around the tip of the appendix, new finding since 05/29/2018. Intrinsically the appendix appears unremarkable. Possibility of early stage tip appendicitis is not excluded. 3. Significant fecal residual throughout the entire large bowel, new finding since prior study. 4. Trace amount of free fluid within the pelvis, new finding since prior study.
--- NOTE | 2018-08-19 14:45 | Admission Core Measures ---
Acute Coronary Syndrome (CM) ACS Core Measures Acute Coronary Syndrome Diagnosis No Congestive Heart Failure (NEW) CHF Core Measures Congestive Heart Failure Diagnosis No Cerebrovascular Accident CVA Core Measures CVA/TIA Diagnosis No Venous Thromboembolism VTE Core Cody (View Protocol) VTE Risk Factors Age>40 No Mechanical VTE Prophylaxis d/t N/A MechProphylax Ordered No VTE Pharm Prophylaxis d/t NA PharmProphylax ordered Problem List As ranked by this Provider includes Assessment & Plan 1. Acute appendicitis HOME MEDS Home Med List Chlordiazepoxide HCl 25 MG CAPSULE 2 CAP PO AT BEDTIME benzodiazepine detox Dicyclomine HCl 20 MG TABLET 1 TAB PO BID PRN ABD PAIN (Reported) Diphenoxylate HCl/Atropine (Lomotil 2.5-0.025 MG Tablet) 2.5 MG-0.025 MG TABLET 1 TAB PO 4 TIMES/DAY PRN DIARRHEA (Reported) Famotidine 20 MG TABLET 20 MG PO PRN DYSPEPSIA (Reported) Levothyroxine Sodium 50 MCG TABLET 1 TAB PO DAILY AC THYROID (Reported) Methotrexate 2.5 MG TABLET 5 TAB PO QTUES RA (Reported) Ondansetron HCl (Zofran) 4 MG TABLET 1 TAB PO Q8P PRN nausea/vomiting ( Reported) Sucralfate (Carafate) 1 GRAM TABLET 1 TAB PO BID acid reflux (Reported)
--- NOTE | 2018-08-19 14:55 | History & Physical Pre-Op ---
Yogesh Churchill 08/19/18 1445: General Information and HPI MD Statement: I have seen and personally examined DOUG JACKMAN and documented this H&P. The patient is a 58 year old F who presented with a patient stated chief complaint of [right lower quadrant abdominal pain]. Source of Information: patient Exam Limitations: no limitations History of Present Illness: Ms. Jackman is a 58-year-old female with past medical history of hypothyroidism, rheumatoid arthritis, reflux who presents with a 1 day history of worsening periumbilical abdominal pain that is now radiated to the right lower quadrant. She denies any nausea and vomiting associated with the symptoms however it is very difficult for her to sit up from a lying position, and to just move around in general. She denies any change in bladder or bowel habits. She denies fever or chills at home however she has feels generally lousy. CAT scan evaluation of abdomen today demonstrates appendicolith with stranding around the appendix suggestive of early appendicitis. Allergies/Medications Allergies: Coded Allergies: venom-honey bee (bee venom (honey bee)) (Severe, ANAPHYLAXIS 04/30/18) ketorolac (From TORADOL) (ITCHING 04/30/18) Past History Medical History Neurological: NONE EENT: ALLERGIES- SEASONAL; BEES (seasonal allergies) Cardiovascular: NONE Respiratory: NONE Gastrointestinal: colitis, ACID REFLUX Hepatic: cholelithiasis Renal: NONE Musculoskeletal: osteoarthritis, rheumatoid arthritis (STATES RA- HOWEVER ? ACCURACY), sciatica, spinal stenosis (CERVICAL), RheUmatoid Arthritis Psychiatric: anxiety, ptsd Endocrine: hypothyroidism Blood Disorders: BORDERLINE ANEMIA Cancer(s): NONE, NONE [employer]/Reproductive: NONE History of MRSA: No History of VRE: No History of CDIFF: No Surgical History Pertinent Surgical History: cholecystectomy, , spinal fusion (lumbar and cervical) Past Family/Social History Family History Relations & Conditions if any ALL (THE PATIENT STATES SHE IS ADOPTED. SHE HAS 2 CHILDREN WHO ARE ALIVE AND WELL. UNKNOWN BIOLOGICAL FAMILY HISTORY). Psychosocial History Who Do You Live With? child (DAUGHTER WHO IS ) Services at Home None Primary Language: Guatemalan ETOH Use: occasional use Illicit Drug Use: denies illicit drug use Functional Ability ADLs Independent: dressing, eating, toileting, bathing. Ambulation: independent Exam & Diagnostic Data Last 24 Hrs of Vital Signs/I&O Vital Signs Date Time Temp Pulse Resp B/P B/P Pulse O2 O2 Flow FiO2 Mean Ox Delivery Rate 08/19 1354 98.0 97 20 118/74 96 Room Air 08/19 1109 97.1 98 18 112/78 95 Room Air 08/19 1104 95 Room Air 08/19 0840 97.5 99 20 116/81 95 Room Air Intake & Output 08/19 1600 08/19 0800 08/19 0000 Intake Total 0 Output Total Balance 0 Intake, Oral 0 Patient 105 lb Weight Weight Reported by Patient Measurement Method Physical Exam General Appearance Alert, Oriented X3, Cooperative Skin No Rashes HEENT PERRLA Cardiovascular Regular Rate, Normal S1, Normal S2 Lungs Clear to Auscultation, Normal Air Movement Abdomen rlq tendernes to palp at mcburney's point, reboundtenderness, +bs, soft Neurological Normal Speech, Strength at 5/5 X4 Ext Extremities No Edema, Normal Pulses Vascular Normal Pulses Last 24 Hrs of Labs/Yuri: Laboratory Tests 08/19/18 1252: Lactic Acid Cancelled 08/19/18 1208: Urine Color YEL, Urine Clarity CLEAR, Urine pH 6.5, Ur Specific [place] 1.025, Urine Protein NEG, Urine Ketones NEG, Urine Nitrite NEG, Urine Bilirubin NEG, Urine Urobilinogen 0.2, Ur Leukocyte Esterase NEG, Ur Microscopic EXAM NOT REQUIRED, Urine Hemoglobin NEG, Urine Glucose NEG 08/19/18 1023: Anion Gap 8, Estimated GFR > 60, BUN/Creatinine Ratio 24.3, Glucose 92, Lactic Acid 0.7, Calcium 9.1, Total Bilirubin 0.2, AST 23, ALT 20, Alkaline Phosphatase 85, Total Protein 6.5, Albumin 3.8, Globulin 2.7, Albumin/Globulin Ratio 1.4, Lipase 24, CBC w Diff NO MAN DIFF REQ, RBC 3.74 L, MCV 93.8, MCH 31.1 H, MCHC 33.1, RDW 14.9 H, MPV 8.4, Gran % 81.3 H, Lymphocytes % 11.0 L, Monocytes % 5.7, Eosinophils % 1.6, Basophils % 0.4, Absolute Granulocytes 5.0, Absolute Lymphocytes 0.7 L, Absolute Monocytes 0.3, Absolute Eosinophils 0.1, Absolute Basophils 0 Diagnostic Data Other Results SERVICE DATE: 08/19/18-1006 EXAM TYPE: CAT - CT ABD & PELVIS W IV CONTRAST EXAMINATION: CT ABDOMEN AND PELVIS WITH CONTRAST CLINICAL INFORMATION: Right lower quadrant and left lower quadrant abdominal pain, nausea. COMPARISON: CT of the abdomen and pelvis done on 05/29/2018. TECHNIQUE: Multidetector volumetric imaging was performed of the abdomen and pelvis following IV administration of 95 mL of Optiray 320 intravenous contrast. Sagittal and coronal reformatted images were obtained on the technologist's workstation. DLP: 238.41 mGy-cm FINDINGS: LUNG BASES: The visualized lung bases are unremarkable. LIVER, GALLBLADDER, AND BILIARY TREE: The liver is normal in size, shape, and attenuation. No focal hepatic lesion or biliary ductal dilatation is present. Mild central intrahepatic biliary ductal dilatation is noted. The common bile duct measures 1.3 cm at the level of the head of the pancreas however, appears stable since 05/29/2018. The gallbladder is surgically absent. PANCREAS: Unremarkable SPLEEN: Unremarkable ADRENAL GLANDS: Unremarkable KIDNEYS AND URETERS: The kidneys are normal in size, shape, and attenuation. No hydronephrosis, hydroureter, or calculi seen. No perinephric stranding. BLADDER: Unremarkable GASTROINTESTINAL TRACT: Significant fecal residual is noted throughout the entire large bowel from cecum to the rectum. The appendix is visualized, shows tiny intraluminal hyperdense material, likely representing appendicolith. Trace amount of fluid is also noted around the appendix specifically near the tip (see the mattson images). The finding would be unlikely for appendicitis however, early subtle appendicitis, especially involving the tip is not excluded. ABDOMINAL WALL: No significant hernia is appreciated. LYMPH NODES: Normal VASCULAR: Unremarkable PELVIC VISCERA: There is trace amount of free fluid noted within the pelvis. There is no pelvic mass present. There is no free air seen. OSSEOUS STRUCTURES: No suspicious lytic or sclerotic abnormality is present. IMPRESSION: 1. Mild intrahepatic as well as extrahepatic biliary ductal dilatation in this patient with prior cholecystectomy, appears unchanged since 05/29/2018. 2. Evidence of appendicolith and trace amount of fluid around the tip of the appendix, new finding since 05/29/2018. Intrinsically the appendix appears unremarkable. Possibility of early stage tip appendicitis is not excluded. 3. Significant fecal residual throughout the entire large bowel, new finding since prior study. 4. Trace amount of free fluid within the pelvis, new finding since prior study. DICTATED BY: Yaquelin Squires MD DATE/TIME DICTATED:08/19/181218 ROOFER APPLICATOR:ANGEL DATE/TIME TRANSCRIBED:08/19/181218 Assessment/Plan Assessment/Plan: Ms. Jackman is a 58-year-old female who presents with 1 day history of worsening right lower quadrant abdominal pain. CAT scan evaluation demonstrates appendicolith with early signs of acute appendicitis. After physical exam and discussion with Dr. Tapia who was determined that the patient will be held here for 23-hour observation and taken to the operating room this evening for laparoscopic appendectomy. The patient understands and is in agreement with this plan. At this time she will be nothing by mouth and we will administer Unasyn 3 g IV and start IV fluids. As Ranked By This Provider Problem List: 1. Acute appendicitis Willie PAULSON,Khanh Contreras 08/19/18 2093: General Information and HPI Allergies/Medications Home Med list Alprazolam 1 MG TABLET 1 TAB PO QPM SLEEP (Reported) Levothyroxine Sodium 50 MCG TABLET 1 TAB PO DAILY AC THYROID (Reported) Quetiapine Fumarate 300 MG TABLET 2 TAB PO QPM MENTAL HEALTH (Reported) Quetiapine Fumarate 25 MG TABLET 1 TAB PO BIDP PRN MENTAL HEALTH (Reported) Attending MD Review Statement Attending Statement Attending MD Statement: examined this patient, discuss w/resident/PA/WEB CONTENT MANAGER, reviewed images Attending Assessment/Plan: As per PA note. This is a 58-year-old woman who is well-known to me from previous encounters recently for unrelated surgical procedures. Patient presents with progressive periumbilical abdominal pain with focality in the right lower quadrant. Symptoms progressed over the course of 24 hours. There is associated anorexia without vomiting. No fevers chills or sweats. Past medical history rheumatoid arthritis, spinal stenosis, "colitis", hypothyroidism , seasonal allergies, anxiety. Past surgical history laparoscopic cholecystectomy, hernia repair (ventral), section and spinal fusion. No known drug allergies, family history negative for appendicitis social history occasional drinker non-smoker (former). Physical examination shows healthy woman who is thin no distress vital signs normal limits, HEENT normal lungs clear to auscultation heart is regular no murmurs abdomen soft tender right lower quadrant with involuntary guarding. White blood cell count was normal electro lites are normal. CT scan of the pelvis images were personally reviewed. Findings show dilated appendix, with fecalith at the tip and pelvic free fluid Impression is that of acute appendicitis recommendations are for broad-spectrum antibiotics followed by prompt laparoscopic appendectomy. She is informed the risk of the operation including bleeding infection and agrees to proceed.
[2018-08-19] MEDS ORDERED: QUETIAPINE FUM300 M1 PO (15:02)
[2018-08-19] MEDS ORDERED: QUETIAPINE FUMA25 M1 PO (15:02)
[2018-08-19] MEDS ORDERED: ALPRAZOLAM1 M2 PO (15:03)
[2018-08-19 15:34] LABS: PT 10.4 SEC (9.4-12.5); PTT 29 SEC (25-37)
--- NOTE | 2018-08-19 18:35 | Operative Report ---
Operative/Inv Procedure Report Surgery Date: 08/19/18 Name of Procedure: Laparoscopic appendectomy Pre-Operative Diagnosis: Acute appendicitis Post-Operative Diagnosis: Same Estimated Blood Loss: scant Surgeon/Rag Shredder: Khanh Tapia MD/Jayshree Velasco APRN Anesthesia: general endotracheal tube Specimens: Appendix Operative/Procedure Note Note: After consent patient is brought to the operating room and laid supine. General anesthesia was obtained his abdomen was prepped and draped. Skin above the umbilicus was after local anesthesia a curvilinear incision made sharply. We dissected through subcutaneous tissues tissues bluntly and identified the fascia. It was grasped with Ly's and a fasciotomy created sharply. The peritoneum was entered sharply and a blunt Reyes port was placed. Pneumoperitoneum was achieved. 2, 5 mm ports were placed in the suprapubic region and left lower quadrant, after local anesthesia was instilled and under direct vision the camera. Patient placed in Trendelenburg and rotated towards the left. The abdomen was explored. There was pelvic free fluid, nonpurulent. The appendix is identified and the base was supple. The midportion and tip were mildly dilated with some mild injection. The right and left ovaries are normal. Small bowel is normal. The appendix was then grasped at its base and a window in the mesentery developed with a [place] dissector. The base and mesentery was then divided sequentially with Endo SATNAM rose loads. The right lower quadrant and pelvis were then irrigated with normal saline. Hemostasis was adequate. Ports then removed and appendix delivered and passed off the field. The fascia was closed 0 Vicryl suture. Skin incisions closed with 4-0 Vicryl. Steri- Strips and sterile dressing applied. Sponge and needle counts are correct CC: Isabelle PAULSON,Jeri
[2018-08-19 20:33] VITALS: BP 150/90
[2018-08-19 22:13] VITALS: BP 147/102
--- NOTE | 2018-08-19 22:59 | PN- General Surgery ---
Subjective Subjective: Moderate pain right lower quadrant, improved with IV morphine prior to my evaluation. She denies any fever or flulike illness. She is tolerating clears. She has recovered from anesthesia well Objective Vital Signs and I&Os Vital Signs Date Time Temp Pulse Resp B/P B/P Pulse O2 O2 Flow FiO2 Mean Ox Delivery Rate 08/19 2213 97.6 77 19 147/102 97 Nasal 2.0L Cannula 08/19 2033 97.8 84 18 150/90 95 Nasal 2.0L Cannula 08/19 1551 97.9 18 95 Room Air 08/19 1540 148/80 08/19 1354 98.0 97 20 118/74 96 Room Air 08/19 1109 97.1 98 18 112/78 95 Room Air 08/19 1104 95 Room Air 08/19 0840 97.5 99 20 116/81 95 Room Air Intake & Output 08/19 1600 08/19 0800 08/19 0000 08/18 1600 08/18 0800 08/18 0000 Intake Total 0 Output Total Balance 0 Intake, Oral 0 Patient 105 lb Weight Weight Reported by Patient Measurement Method Physical Exam: Well-developed well-nourished no apparent distress. HEENT: Atraumatic, extraocular motion intact Neck: Supple, no lymphadenopathy Respiratory: No respiratory distress Abdomen: Mild tenderness right lower quadrant, dressing sites clean dry and intact Extremities: No edema, no calf pain Neuro: Alert and oriented x3 Psych: Mood affect normal, normal memory normal judgment. Skin: Warm and dry, no rash on exposed skin Assessment/Plan Assessment/Plan Postop day #0 status post laparoscopic appendectomy Pain medication as needed. Ambulate/out of bed. IV fluids until tolerating adequate p.o. Clears for now, regular diet in the morning As needed antiemetics Heparin subcu and alps for DVT prophylaxis GI prophylaxis Patient placed in 23-hour observation after acute appendicitis and appendectomy, advance to regular diet in the morning and discharge if surgically stable Core Measures Venous Thromboembolism VTE Risk Factors Age>40 No Mechanical VTE Prophylaxis d/t N/A MechProphylax Ordered No VTE Pharm Prophylaxis d/t NA PharmProphylax ordered
[2018-08-20 00:36] VITALS: BP 89/63
[2018-08-20 02:32] VITALS: BP 97/62
[2018-08-20 06:33] VITALS: BP 102/70
--- NOTE | 2018-08-20 06:54 | PN- Student ---
See Addendum Michelle Wisdom 08/20/18 0643: Subjective Subjective: Pt reports doing ok this morning. States she has been in a lot of pain throughout the night and this am. Also reports feeling constipated this am, she believes her last bowel movement was yesterday. Pt reporting flatus. Ambulated without difficulty. Complaining of incomplete voiding. Has not eaten yet. Denies any nausea, vomiting, CP, SOB, difficulty breathing, headache or dizziness. Objective Objective: Vitals: See EMR General: Middle ages female, lying in bed, NC in place, NAD. Cardio: Regular rate and rhythm. S1 and S2. No murmurs, rubs or gallops. Pulm: Clear breath sounds auscultated with no wheezes, rhonchi or rales. Abdomen: Dressings clean, dry and intact. Softly distended. Normoactive bowel sounds. Mild tenderness to palpation. No rebound tenderness. Extremities: ALPs in place. Calves soft and non-tender bilaterally. Gross motor and sensation intact and equal bilaterally. Results Results: Laboratory Tests 08/19/18 1252: Lactic Acid Cancelled 08/19/18 1208: Urine Color YEL, Urine Clarity CLEAR, Urine pH 6.5, Ur Specific [place] 1.025, Urine Protein NEG, Urine Ketones NEG, Urine Nitrite NEG, Urine Bilirubin NEG, Urine Urobilinogen 0.2, Ur Leukocyte Esterase NEG, Ur Microscopic EXAM NOT REQUIRED, Urine Hemoglobin NEG, Urine Glucose NEG 08/19/18 1023: Anion Gap 8, Estimated GFR > 60, BUN/Creatinine Ratio 24.3, Glucose 92, Lactic Acid 0.7, Calcium 9.1, Total Bilirubin 0.2, AST 23, ALT 20, Alkaline Phosphatase 85, Total Protein 6.5, Albumin 3.8, Globulin 2.7, Albumin/Globulin Ratio 1.4, Lipase 24, PT 10.4, INR 0.95, APTT 29, CBC w Diff NO MAN DIFF REQ, RBC 3.74 L, MCV 93.8, MCH 31.1 H, MCHC 33.1, RDW 14.9 H, MPV 8.4, Gran % 81.3 H, Lymphocytes % 11.0 L, Monocytes % 5.7, Eosinophils % 1.6, Basophils % 0.4, Absolute Granulocytes 5.0, Absolute Lymphocytes 0.7 L, Absolute Monocytes 0.3, Absolute Eosinophils 0.1, Absolute Basophils 0 Assessment/Plan Assessment: 58 year old F POD#1 s/p laparoscopic appendectomy for tx of appendicitis. Vital signs are stable. Pt tolerated the procedure. Plan: Continue with pain control prn, PO meds preferred. Zofran as needed for nausea. Consider bladder scan if continuing to void incompletely. Possible miralax if patient continues to complain of constipation. Hep SQ, ALPs and ambulation for DVT ppx. Encourage ambulation and incentive spirometry use. Regular diet. Continue home medications. Pt on 23 hour hold. Discuss w Dr Ramon and surgical PAs. Keyanna Mcdonald 08/20/18 0749: Assessment/Plan Plan: Agree with above still with some abd pain, +flatus. abd appropriately tender, no rebound plan- dv ivf, reg diet today encourage ambulation no stool softeners percocet for pain prn fu with dr ramon in 10-14 days
[2018-08-20] MEDS ORDERED: PERCOCET 5-3251 EACH PO (07:53)
--- NOTE | 2018-08-20 07:57 | Patient Discharge Instructions ---
Discharge Instructions General Discharge Information You were seen/treated for: acute appendicitis You had these procedures: laproscopic appendectomy Watch for these problems: fever over 100.4 increase abdominal pain nausea or vomiting drainage from wounds increased redness and swelling around incisions No bath, but you may shower: Yes Other wound care: keep incisions clean and dry Diet Continue normal diet: Yes Activity Activity Self Limited: Yes Acute Coronary Syndrome Inclusion Criteria At DC or during hospital stay patient has or had the following: ACS DIAGNOSIS No Discharge Core Measures Meds if any: Prescribed or Continued at Discharge Meds if any: NOT Prescribed or Continued at Discharge Congestive Heart Failure Inclusion Criteria At DC or during hospital stay patient has or had the following: CHF DIAGNOSIS No Discharge Core Measures Meds if any: Prescribed or Continued at Discharge Meds if any: NOT Prescribed or Continued at Discharge Cerebrovascular accident Inclusion Criteria At DC or during hospital stay patient has or had the following: CVA/TIA Diagnosis No Discharge Core Measures Meds if any: Prescribed or Continued at Discharge Meds if any: NOT Prescribed or Continued at Discharge Venous thromboembolism Inclusion Criteria VTE Diagnosis No VTE Type NONE VTE Confirmed by (Test) NONE Discharge Core Measures - Per Current guidelines, there needs to be overlap - treatment for the first 5 days of Warfarin therapy. - If discharged on Warfarin prior to 5 days of - overlap therapy, the patient will need to be - assessed for post discharge needs including - *Post discharge parental anticoagulation - *Warfarin and/or parental anticoagulation education - *Follow up date to check INR post discharge At least 5 days overlap therapy as Inpatient No Meds if any: Prescribed or Continued at Discharge Note: Overlap Therapy is Warfarin and Anticoagulant Meds if any: NOT Prescribed or Continued at Discharge
--- NOTE | 2018-08-21 14:56 | Surg Short-stay <48hrs Dis Sum ---
Visit Information Visit Dates Admission Date: 08/19/18 Discharge Date: 08/20/18 Surgical Short Stay DC Summary Admission Diagnosis: appendicitis Final Diagnosis: same Procedure(s): laparoscopic appendectomy Summary/Significant Findings: none Condition at Discharge: good Discharge Disposition: home or self care Discharge instructions provided to patient/family: Yes Post discharge follow-up plan: 2 weeks Copies to: Isabelle PAULSON,Jeri
== END 2018-08-20 13:54 ==
LOC: ERH 08:35 → ER-OR 08:42 → ERH 08:42 → ENRESERV 15:32 → PACUH 18:53 → ENTRNSPT 19:32 → EDTRNSPTSTS 19:44 → 2NB 19:59 → CMPTRNSPT 20:03 → ENPENDDIS 08-20 08:30 → 2NB 08-20 08:46 → ENTRNSPT 08-20 13:31 → EDTRNSPT 08-20 13:51 → EDTRNSPTSTS 08-20 13:51 → 2NB 08-20 13:54 → CMPTRNSPT 08-20 14:05
PROVIDERS: Physician Assistant
DX: K37 Unspecified appendicitis (principal); F17.200 Nicotine dependence, unspecified, uncomplicated; G89.29 Other chronic pain; Z23 Encounter for immunization; E03.9 Hypothyroidism, unspecified; M06.9 Rheumatoid arthritis, unspecified; K52.9 Noninfective gastroenteritis and colitis, unspecified; M54.30 Sciatica, unspecified side; M48.00 Spinal stenosis, site unspecified; M19.90 Unspecified osteoarthritis, unspecified site; F41.9 Anxiety disorder, unspecified; F43.10 Post-traumatic stress disorder, unspecified
CPT/HCPCS: 1328; 1530; 1748; 6040; 74177; 81003; 93005; 93010; 96372; 96374; 96375; 96376; G0008; G0378; J1200; J1644; J2250; J2405; J3490; J7042